=== PATIENT | female | born 1950 | race Caucasian/White ===

== ENCOUNTER 2018-02-23 01:13 | Inpatient (IN) | payer MEDICARE ==
[2018-02-23] MEDS: IV NORMAL SALINE 1000ML BAG 1,000 ML IV ×2 (02:19→16:47)
[2018-02-23 09:13] LABS: ADD MAN DIFF? NO
[2018-02-23 09:48] LABS: BASO % 1 % (0-3); EOS # 0.1 x10^3/uL (0.0-0.7); EOS % 2 % (0-3); HEMATOCRIT 41.2 % (36.0-47.0); HEMOGLOBIN 13.6 g/dL (12.0-15.5); LYMPH # 1.8 x10^3/uL (1.0-4.8); LYMPH % 34 % (24-48); MEAN CORPUSCULAR HEMOGLOBIN 30 pg (25-35); MEAN CORPUSCULAR HGB CONC 33 g/dL (31-37); MEAN CORPUSCULAR VOLUME 90 fL (79-100); MONO # 0.3 x10^3/uL (0.0-1.1); MONO % 6 % (0-9); NEUT # 2.9 x10^3uL (1.8-7.7); NEUT % 57 % (31-73); PLATELET COUNT 138 x10^3/uL (140-400); RED BLOOD COUNT 4.57 x10^6/uL (3.50-5.40); RED CELL DISTRIBUTION WIDTH 13.5 % (11.5-14.5); WHITE BLOOD COUNT 5.1 x10^3/uL (4.0-11.0)
[2018-02-23 09:50] LABS: ALBUMIN 3.1 g/dL (3.4-5.0); ALK PHOS 88 U/L (46-116); ALT (SGPT) 21 U/L (14-59); ANION GAP 7 (6-14); AST (SGOT) 16 U/L (15-37); BLOOD UREA NITROGEN 16 mg/dL (7-20); BUN/CREATININE RATIO 23 (6-20); CALCIUM 8.7 mg/dL (8.5-10.1); CARBON DIOXIDE 28 mmol/L (21-32); CHLORIDE 110 mmol/L (98-107); CREATININE 0.7 mg/dL (0.6-1.0); GLUCOSE 95 mg/dL (70-99); POTASSIUM 3.9 mmol/L (3.5-5.1); SODIUM 145 mmol/L (136-145); TOTAL BILIRUBIN 0.6 mg/dL (0.2-1.0); TOTAL PROTEIN 6.2 g/dL (6.4-8.2)
[2018-02-23] MEDS: PANTOPRAZOLE IV PUSH 40 MG VIAL. IVP (10:50)
[2018-02-23] MEDS: ACETAMINOPHEN 325 MG TABLET. PO ×2 (10:50→18:09)
[2018-02-23] MEDS: METOPROLOL TART IMMED RELEASE 25 MG TABLET. PO ×2 (18:08→21:53)
[2018-02-23] MEDS: PROPAFENONE 150 MG TABLET. PO ×2 (18:09→21:50)
[2018-02-23] MEDS: ALPRAZolam 0.5 MG TABLET PO (18:09)
[2018-02-24] MEDS: IV NORMAL SALINE 1000ML BAG 1,000 ML IV (04:14)
[2018-02-24] MEDS: PROPAFENONE 150 MG TABLET. PO (09:08)
[2018-02-24] MEDS: PANTOPRAZOLE 40 MG TABLET.DR. PO (09:09)
[2018-02-24] MEDS: METOPROLOL TART IMMED RELEASE 25 MG TABLET. PO (09:10)
[2018-02-24 10:52] LABS: HEMOGLOBIN 14.8 g/dL (12.0-15.5)
== END 2018-02-24 15:55 | disposition home or self-care (01) | DRG 379 ==
LOC: 6 SOUTH 01:13
DX: K92.2 Gastrointestinal hemorrhage, unspecified (principal); I48.2 Chronic atrial fibrillation; K92.1 Melena; I10 Essential (primary) hypertension; K21.9 Gastro-esophageal reflux disease without esophagitis; K27.9 Peptic ulcer, site unspecified, unspecified as acute or chronic, without hemorrhage or perforation; Z79.01 Long term (current) use of anticoagulants; Z80.1 Family history of malignant neoplasm of trachea, bronchus and lung; Z82.49 Family history of ischemic heart disease and other diseases of the circulatory system; Z87.11 Personal history of peptic ulcer disease; Z90.710 Acquired absence of both cervix and uterus
CPT/HCPCS: 36415; 80053; 85018; 85025; C9113; J7030

== ENCOUNTER 2019-01-08 03:17 | Inpatient (IN) | payer MEDICARE ==
[~2019-01-08] VITALS: Ht 162.6 cm; Wt 115.8 kg
[2019-01-08] VITALS (10 sets, daily range): BP systolic 87–140; BP diastolic 41–60
[~2019-01-08 03:17] MED LIST: ACET325T9 PO; APIX5TAB PO; CHOL100013 PO; METO25TA4 PO; NAPR220C4 PO; OMEP20TA8 PO; PROP150T2 PO
[2019-01-08] MEDS ORDERED: ONDANSETRON PF 4 MG/2 ML VIAL. ONE ×2 (03:23→09:17)
--- NOTE | 2019-01-08 03:46 | PHYS DOC ---
Past Medical History Past Medical History: A-Fib, Anxiety Past Surgical History: Hysterectomy Alcohol Use: Occasionally Drug Use: None Adult General HPI HPI Patient is a 68 year old female who presents with right hip pain post fall. Patient was walking to her car to go work at approximately 2:00 this morning when she slipped on ice landing on her right hip. There was no loss of consciousness. Patient has been unable to ambulate since the fall. Patient was brought in by EMS, given 100 �g of fentanyl as well as 4 mg of Zofran in route. Patient continues to have nausea and vomiting.[] Review of Systems Review of Systems Constitutional: Denies fever or chills [] Eyes: Denies change in visual acuity, redness, or eye pain [] HENT: Denies nasal congestion or sore throat [] Respiratory: Denies cough or shortness of breath [] Cardiovascular: No chest pain or palpitations[] GI: Denies abdominal pain, nausea, vomiting, bloody stools or diarrhea [] : Denies dysuria or hematuria [] Musculoskeletal: Denies back pain, see history of present illness[] Integument: Denies rash or skin lesions [] Neurologic: Denies headache, focal weakness or sensory changes [] Endocrine: Denies polyuria or polydipsia [] All other systems were reviewed and found to be within normal limits, except as documented in this note. Current Medications Current Medications Current Medications Medications (Trade) Dose Ordered Sig/[facility] Start Time Stop Time Status Last Admin Dose Admin Acetaminophen (Tylenol) 650 mg PRN Q4HRS PRN 01/08/19 04:15 01/09/19 04:14 Metoclopramide HCl (Reglan Vial) 10 mg 1X ONCE 01/08/19 04:15 01/08/19 04:16 DC 01/08/19 04:28 10 MG Morphine Sulfate (Morphine Sulfate) 4 mg PRN Q2HR PRN 01/08/19 04:15 01/09/19 04:14 Ondansetron HCl (Zofran) 4 mg PRN Q8HRS PRN 01/08/19 04:15 01/09/19 04:14 Allergies Allergies Allergies Coded Allergies Type Severity Reaction Last Updated Verified No Known Drug Allergies 01/08/19 No Physical Exam Physical Exam Constitutional: Well developed, well nourished, mild to moderate discomfort, non -toxic appearance. [] HENT: Normocephalic, atraumatic, bilateral external ears normal, oropharynx moist, no oral exudates, nose normal. [] Eyes: PERRLA, EOMI, conjunctiva normal, no discharge. [] Neck: Normal range of motion, no tenderness, supple, no stridor. [] Cardiovascular:Heart rate regular rhythm, no murmur [] Lungs & Thorax: Bilateral breath sounds clear to auscultation [] Abdomen: Bowel sounds normal, soft, no tenderness, no masses, no pulsatile masses. [] Skin: Warm, dry, no erythema, no rash. [] Back: No tenderness, no CVA tenderness. [] Extremities: Right hip: Tenderness diffusely around the right hip patient is distal neurovascularly intact. Other 3 extremities: No tenderness, no cyanosis, no clubbing, ROM intact, no edema. [] Neurologic: Alert and oriented X 3, normal motor function, normal sensory function, no focal deficits noted. [] Psychologic: Affect normal, judgement normal, mood normal. [] Current Patient Data Vital Signs Vital Signs Date Time Temp Pulse Resp B/P (MAP) Pulse Ox O2 Delivery O2 Flow Rate FiO2 01/08/19 04:29 22 98 Nasal Cannula 2.0 01/08/19 04:12 66 01/08/19 03:17 97.7 144/66 (92) 97.7 EKG EKG EKG shows a sinus rhythm at 63 bpm, normal axis, QTC 425 ms, no ST elevation, interpreted by me at 0430[] Radiology/Procedures Radiology/Procedures Right hip x-ray and pelvis shows a right hip fracture Chest x-ray is rotated but does not show an acute infiltrate[] Course & Med Decision Making Course & Med Decision Making Pertinent Labs and Imaging studies reviewed. (See chart for details) [] Dragon Disclaimer Dragon Disclaimer This electronic medical record was generated, in whole or in part, using a voice recognition dictation system. Departure Departure Impression: Primary Impression: Hip fracture, right Additional Impression: A-fib Disposition: ADMITTED INPATIENT Admitting Physician: Other Condition: IMPROVED Problem Qualifiers Primary Impression: Hip fracture, right Encounter type: initial encounter Fracture type: closed Qualified Codes: S72.001A - Fracture of unspecified part of neck of right femur, initial encounter for closed fracture Additional Impression: A-fib Atrial fibrillation type: unspecified Qualified Codes: I48.91 - Unspecified atrial fibrillation CICI MILLER DO Jan 08, 2019 03:46
[2019-01-08] MEDS ORDERED: ONDANSETRON PF 4 MG/2 ML VIAL. IV ONE (04:00)
[2019-01-08] MEDS ORDERED: ACETAMINOPHEN 325 MG TABLET. PO PRN (04:15)
[2019-01-08] MEDS ORDERED: ONDANSETRON PF 4 MG/2 ML VIAL. IV PRN ×3 (04:15→19:00)
[2019-01-08] MEDS ORDERED: METOCLOPRAMIDE HCL 10 MG/2 ML VIAL. IV ONE (04:15)
[2019-01-08] MEDS ORDERED: MORPHINE SULFATE 4 MG/ML VIAL. IV ONE (04:15)
--- NOTE | 2019-01-08 04:54 | RAD ---
Pelvis and 2 views right hip HISTORY: Pain status post fall AP view the pelvis obtained as well as AP and crosstable lateral views of the right hip There is enteroenteric fracture of the right hip with varus angulation and avulsion of the lesser trochanter. The femoral acetabular relationship is preserved. The remaining visualized osseous structures appear intact. IMPRESSION: Acute traumatic intertrochanteric fracture of the right hip. Electronically signed by: Santos Felix III, MD (01/08/2019 4:50 AM) [facility]
[2019-01-08 04:57] LABS: BASO % 0 % (0-3); EOS % 0 % (0-3); HEMATOCRIT 42.3 % (36.0-47.0); HEMOGLOBIN 13.9 g/dL (12.0-15.5); LYMPH # 1.1 x10^3/uL (1.0-4.8); LYMPH % 10 % (24-48); MEAN CORPUSCULAR HEMOGLOBIN 30 pg (25-35); MEAN CORPUSCULAR HGB CONC 33 g/dL (31-37); MEAN CORPUSCULAR VOLUME 90 fL (79-100); MONO # 0.2 x10^3/uL (0.0-1.1); MONO % 2 % (0-9); NEUT # 9.1 x10^3uL (1.8-7.7); NEUT % 87 % (31-73); PLATELET COUNT 189 x10^3/uL (140-400); RED BLOOD COUNT 4.68 x10^6/uL (3.50-5.40); RED CELL DISTRIBUTION WIDTH 13.2 % (11.5-14.5); WHITE BLOOD COUNT 10.5 x10^3/uL (4.0-11.0)
--- NOTE | 2019-01-08 04:57 | RAD ---
PORTABLE CHEST 1V Clinical History: Preoperative evaluation Technique: AP view of the chest was obtained at 01/08/2019 4:02 AM. Comparison: None. Findings: The cardiomediastinal silhouette is normal. The pulmonary vasculature is normal. The lungs and pleural margins are clear. Impression: No evidence of an acute cardiopulmonary process. Electronically signed by: Santos Felix III, MD (01/08/2019 4:52 AM) [facility]
[2019-01-08 05:06] LABS: CALCIUM 8.9 mg/dL (8.5-10.1); CREATININE 0.8 mg/dL (0.6-1.0); GFR 70.9; POTASSIUM 3.8 mmol/L (3.5-5.1)
[2019-01-08 05:12] LABS: ALBUMIN 3.2 g/dL (3.4-5.0); ALBUMIN/GLOBULIN RATIO 0.9 (1.0-1.7); PROTHROMBIN TIME PATIENT 13.8 SEC (11.7-14.0); TOTAL BILIRUBIN 0.3 mg/dL (0.2-1.0); TOTAL PROTEIN 6.8 g/dL (6.4-8.2)
[2019-01-08 05:29] LABS: BILIRUBIN,URINE NEGATIVE (NEG); CLARITY,URINE CLEAR; COLOR,URINE YELLOW; NITRITE,URINE NEGATIVE (NEG); PROTEIN,URINE NEGATIVE (NEG-TRACE); UROBILINOGEN,URINE 0.2 mg/dL (0.2 mg/dL)
[2019-01-08 05:33] LABS: AMORPHOUS SEDIMENT,UR PRESENT /HPF; BACTERIA,URINE 0 /HPF (0-FEW); HYALINE CASTS, URINE FEW /HPF; RBC,URINE 0 /HPF (0-2); SQUAMOUS EPITHELIAL CELL,UR OCC /LPF; WBC,URINE OCC /HPF (0-4)
[2019-01-08 06:56] LABS: % ATYL 1 % (0-0); % BANDS 5 % (0-9); % LYMPHS 9 % (24-48); % MONOS 1 % (0-10); PLT ESTIMATE ADEQUATE (ADEQUATE)
[2019-01-08 06:57] LABS: % SEGS 84 % (35-66); OVALOCYTES FEW
--- NOTE | 2019-01-08 07:00 | EKG ---
[facility] [address] [place] [address] Test Date: 2019-01-08 Test Time: 04:26:15 Pat Name: PRO GOMEZ Department: Room: [facility] Gender: F Rn Transition: : 1950 Requested By: CICI MILLER Order Number: [id number] Reading MD: Matheus Wayne MD Measurements Intervals [place] Rate: 63 P: 7 ID: [id number] QRS: 18 QRSD: 94 T: 26 QT: 412 QTc: 425 Interpretive Statements SINUS RHYTHM Electronically Signed On 01-11-2019 10:30:17 [employer] by Matheus Wayne MD
[2019-01-08] MEDS ORDERED: APIX5TAB PO (07:35)
[2019-01-08] MEDS ORDERED: PROP150T2 PO (07:35)
[2019-01-08] MEDS ORDERED: OMEP20CA10 PO (07:35)
[2019-01-08] MEDS ORDERED: METO25TA4 PO (07:35)
[2019-01-08] MEDS ORDERED: CHOL100013 PO (07:35)
[2019-01-08] MEDS: MORPHINE SULFATE 4 MG/ML VIAL. IV PRN ×3 (07:48→19:42)
[2019-01-08] MEDS ORDERED: PROPOFOL 20 ML IV ONE (09:17)
[2019-01-08] MEDS ORDERED: DEXAMETHASONE SOD PHOS 20 MG/5 ML VIAL. ONE (09:17)
[2019-01-08] MEDS ORDERED: FAMOTIDINE 20 MG/2 ML VIAL ONE (09:17)
[2019-01-08] MEDS ORDERED: LIDOCAINE 2% PF 5 ML VIAL. ONE (09:17)
[2019-01-08] MEDS ORDERED: fentaNYL PF VIAL 100 MCG/2 ML VIAL ONE ×2 (09:18→14:31)
[2019-01-08] MEDS ORDERED: MIDAZOLAM HCL/PF 2 MG/2 ML VIAL. ONE (09:18)
[2019-01-08] MEDS ORDERED: ROCURONIUM 50 MG/5 ML VIAL. ONE (09:18)
--- NOTE | 2019-01-08 09:51 | PDOC1 ---
History and Physical Date of Admission Date of Admission DATE: 01/08/19 TIME: 09:49 Identification/Chief Complaint Chief Complaint seen in ER THIS AM, Patient was walking to her car to go work at approximately 2:00 this morning when she slipped on ice landing on her right hip. There was no loss of consciousness NO HEAD INJURY. Patient has been unable to ambulate since the fall. 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 [place] Cardiovascular: AFIB Rheumatologic: No pertinent hx ENT: No pertinent hx Renal/: No pertinent hx Past Surgical History Past Surgical History: Other Family History Family History: High Cholestrol, Hypertension Family History: Parent Social History Smoke: No ALCOHOL: none Drugs: None Current Medications Current Medications Current Medications Ondansetron HCl (Zofran) 4 mg STK-MED ONCE .ROUTE ; Start 01/08/19 at 03:23; Stop 01/08/19 at 03:26; Status DC Ondansetron HCl (Zofran) 4 mg 1X ONCE IV Last administered on 01/08/19at 03:25 ; Start 01/08/19 at 04:00; Stop 01/08/19 at 04:01; Status DC Metoclopramide HCl (Reglan Vial) 10 mg 1X ONCE IV Last administered on at 04:28; Start 01/08/19 at 04:15; Stop 01/08/19 at 04:16; Status DC Morphine Sulfate (Morphine Sulfate) 4 mg 1X ONCE IV Last administered on at 04:29; Start 01/08/19 at 04:15; Stop 01/08/19 at 04:16; Status DC Ondansetron HCl (Zofran) 4 mg PRN Q8HRS PRN IV NAUSEA/VOMITING; Start 01/08/19 at 04:15; Stop 01/09/19 at 04:14 Morphine Sulfate (Morphine Sulfate) 4 mg PRN Q2HR PRN IV PAIN Last administered on 01/08/19at 07:48; Start 01/08/19 at 04:15; Stop 01/09/19 at 04:14 Acetaminophen (Tylenol) 650 mg PRN Q4HRS PRN PO FEVER; Start 01/08/19 at 04:15 ; Stop 01/09/19 at 04:14 Propofol 20 ml @ As Directed STK-MED ONCE IV ; Start 01/08/19 at 09:17; Stop 10/16 at 09:20; Status DC Dexamethasone Sodium Phosphate (Decadron) 20 mg STK-MED ONCE .ROUTE ; Start 10/16 at 09:17; Stop 01/08/19 at 09:20; Status DC Famotidine (Pepcid Vial) 20 mg STK-MED ONCE .ROUTE ; Start 01/08/19 at 09:17; Stop 01/08/19 at 09:20; Status DC Lidocaine HCl (Lidocaine Pf 2% Vial) 5 ml STK-MED ONCE .ROUTE ; Start 01/08/19 at 09:17; Stop 01/08/19 at 09:20; Status DC Ondansetron HCl (Zofran) 4 mg STK-MED ONCE .ROUTE ; Start 01/08/19 at 09:17; Stop 01/08/19 at 09:20; Status DC Rocuronium [place] (Zemuron) 50 mg STK-MED ONCE .ROUTE ; Start 01/08/19 at 09:18 ; Stop 01/08/19 at 09:21; Status DC Fentanyl Citrate (Fentanyl 2ml Vial) 100 mcg STK-MED ONCE .ROUTE ; Start at 09:18; Stop 01/08/19 at 09:21; Status DC Midazolam HCl (Versed) 2 mg STK-MED ONCE .ROUTE ; Start 01/08/19 at 09:18; Stop 01/08/19 at 09:21; Status DC Active Scripts Active Reported Vitamin D (Cholecalciferol (Vitamin D3)) 1,000 Unit Capsule 1 Cap PO DAILY PRN Omeprazole 20 Mg Capsule.dr 1 Cap PO DAILY PRN Eliquis (Apixaban) 5 Mg Tablet 5 Mg PO BID PRN Metoprolol Tartrate 25 Mg Tablet 1 Tab PO BID PRN Propafenone Hcl 150 Mg Tablet 150 Mg PO BID Allergies Allergies: Coded Allergies: No Known Drug Allergies (Unverified , 01/08/19) ROS Review of System Review of Systems Review of Systems Constitutional: Denies fever or chills [] Eyes: Denies change in visual acuity, redness, or eye pain [] HENT: Denies nasal congestion or sore throat [] Respiratory: Denies cough or shortness of breath [] Cardiovascular: No chest pain or palpitations[] no exertional chest pain GI: Denies abdominal pain, nausea, vomiting, bloody stools or diarrhea [] : Denies dysuria or hematuria [] Musculoskeletal: Denies back pain, see history of present illness[] Integument: Denies rash or skin lesions [] Neurologic: Denies headache, focal weakness or sensory changes [] Endocrine: Denies polyuria or polydipsia [] 14 pt systems were reviewed and found to be within normal limits, except as documented PSYCHOLOGICAL ROS: No: Anxiety, Behavioral Disorder, Concentration difficultie , Decreased libido, Depression, Disorientation, Hallucinations, Hostility, Irritablity, Memory difficulties, Mood Swings, Obsessive thoughts, Physical abuse, Sexual abuse, Sleep disturbances, Suicidal ideation, Other Eyes: No Blurry vision, No Decreased vision, No Double vision, No Dry eyes, No Excessive tearing, No Eye Pain, No Itchy Eyes, No Loss of vision, No Photophobia , No Scotomata, No Uses contacts, No Uses glasses, No Other ALLERGY AND IMMUNOLOGY: No: Hives, Insect Bite Sensitivity, Itchy/Watery Eyes, Nasal Congestion, Post Nasal Drip, Seasonal Allergies, Other Hematological and Lymphatic: No: Bleeding Problems, Blood Clots, Blood Transfusions, Brusing, Night Sweats, Pallor, Swollen Lymph Nodes, Other Respiratory: No: Cough, Hemoptysis, Orthopnea, Pleuritic Pain, Shortness of breath, SOB with excertion, Sputum Changes, Stridor, Tachypnea, Wheezing, Other Cardiovascular: No Chest Pain, No Palpitations, No Orthopnea, No Paroxysmal Noc. Dyspnea, No Edema, No Lt Headedness, No Other Gastrointestinal: No Nausea, No Vomiting, No Abdominal Pain, No Diarrhea, No Constipation, No Melena, No Hematochezia, No Other Neurological: Yes Gait Disturbance Physical Exam Physical Exam Physical Exam Physical Exam Constitutional: Well developed, well nourished, mild to moderate discomfort, non -toxic appearance. [] HENT: Normocephalic, atraumatic, bilateral external ears normal, oropharynx moist, no oral exudates, nose normal. [] Eyes: PERRLA, EOMI, conjunctiva normal, no discharge. [] Neck: Normal range of motion, no tenderness, supple, no stridor. [] Cardiovascular:Heart rate regular rhythm, no murmur [] Lungs & Thorax: Bilateral breath sounds clear to auscultation [] Abdomen: Bowel sounds normal, soft, no tenderness, no masses, no pulsatile masses. [] Skin: Warm, dry, no erythema, no rash. [] Back: No tenderness, no CVA tenderness. [] Extremities: Right hip: Tenderness diffusely around the right hip patient is distal neurovascularly intact. Other 3 extremities: No tenderness, no cyanosis, no clubbing, ROM intact, no edema. [] Neurologic: Alert and oriented X 3, normal motor function, normal sensory function, no focal deficits noted. [] Psychologic: Affect normal, judgement normal, mood normal. [] General: Alert, Oriented X3, Cooperative HEENT: Atraumatic Lungs: Clear to auscultation Heart: S1S2, RRR, no thrills Breasts: Not examined Abdomen: Normal bowel sounds, Soft Rectal Exam: not examined PELVIC: Examination not indicated Extremities: No clubbing, No cyanosis Skin: No breakdown Neuro: Normal speech, Sensation intact, Cranial nerves 3-12 NL Psych/Mental Status: Mental status NL, Mood NL Vitals Vitals Vital Signs Date Time Temp Pulse Resp B/P (MAP) Pulse Ox O2 Delivery O2 Flow Rate FiO2 01/08/19 08:54 Nasal Cannula 2.0 01/08/19 06:00 98.6 69 18 140/60 (86) 98 98.6 Labs Labs Laboratory Tests Test 01/08/19 04:36 01/08/19 05:17 White Blood Count 10.5 x10^3/uL (4.0-11.0) Red Blood Count 4.68 x10^6/uL (3.50-5.40) Hemoglobin 13.9 g/dL (12.0-15.5) Hematocrit 42.3 % (36.0-47.0) Mean Corpuscular Volume 90 fL (79-100) Mean Corpuscular Hemoglobin 30 pg (25-35) Mean Corpuscular Hemoglobin Concent 33 g/dL (31-37) Red Cell Distribution Width 13.2 % (11.5-14.5) Platelet Count 189 x10^3/uL (140-400) Neutrophils (%) (Auto) 87 % (31-73) Lymphocytes (%) (Auto) 10 % (24-48) Monocytes (%) (Auto) 2 % (0-9) Eosinophils (%) (Auto) 0 % (0-3) Basophils (%) (Auto) 0 % (0-3) Neutrophils # (Auto) 9.1 x10^3uL (1.8-7.7) Lymphocytes # (Auto) 1.1 x10^3/uL (1.0-4.8) Monocytes # (Auto) 0.2 x10^3/uL (0.0-1.1) Eosinophils # (Auto) 0.0 x10^3/uL (0.0-0.7) Basophils # (Auto) 0.0 x10^3/uL (0.0-0.2) Segmented Neutrophils % 84 % (35-66) Band Neutrophils % 5 % (0-9) Lymphocytes % 9 % (24-48) Atypical Lymphocytes % (Manual) 1 % (0-0) Monocytes % 1 % (0-10) Platelet Estimate Adequate (ADEQUATE) Ovalocytes Few Prothrombin Time 13.8 SEC (11.7-14.0) Prothromb Time International Ratio 1.1 (0.8-1.1) Sodium Level 145 mmol/L (136-145) Potassium Level 3.8 mmol/L (3.5-5.1) Chloride Level 107 mmol/L (98-107) Carbon Dioxide Level 25 mmol/L (21-32) Anion Gap 13 (6-14) Blood Urea Nitrogen 27 mg/dL (7-20) Creatinine 0.8 mg/dL (0.6-1.0) Estimated GFR (Cockcroft-Gault) 70.9 BUN/Creatinine Ratio 34 (6-20) Glucose Level 149 mg/dL (70-99) Calcium Level 8.9 mg/dL (8.5-10.1) Total Bilirubin 0.3 mg/dL (0.2-1.0) Aspartate Amino Transf (AST/SGOT) 17 U/L (15-37) Alanine Aminotransferase (ALT/SGPT) 22 U/L (14-59) Alkaline Phosphatase 100 U/L (46-116) Total Protein 6.8 g/dL (6.4-8.2) Albumin 3.2 g/dL (3.4-5.0) Albumin/Globulin Ratio 0.9 (1.0-1.7) Urine Collection Type Unknown Urine Color Yellow Urine Clarity Clear Urine pH 5.0 Urine Specific [place] 1.025 Urine Protein Negative mg/dL (NEG-TRACE) Urine Glucose (UA) Negative mg/dL (NEG) Urine Ketones (Stick) Negative mg/dL (NEG) Urine Blood Negative (NEG) Urine Nitrite Negative (NEG) Urine Bilirubin Negative (NEG) Urine Urobilinogen Dipstick 0.2 mg/dL (0.2 mg/dL) Urine Leukocyte Esterase Negative (NEG) Urine RBC 0 /HPF (0-2) Urine WBC Occ /HPF (0-4) Urine Squamous Epithelial Cells Occ /LPF Urine Amorphous Sediment Present /HPF Urine Bacteria 0 /HPF (0-FEW) Urine Hyaline Casts Few /HPF Urine Mucus Mod /LPF Laboratory Tests Test 01/08/19 04:36 01/08/19 05:17 White Blood Count 10.5 x10^3/uL (4.0-11.0) Red Blood Count 4.68 x10^6/uL (3.50-5.40) Hemoglobin 13.9 g/dL (12.0-15.5) Hematocrit 42.3 % (36.0-47.0) Mean Corpuscular Volume 90 fL (79-100) Mean Corpuscular Hemoglobin 30 pg (25-35) Mean Corpuscular Hemoglobin Concent 33 g/dL (31-37) Red Cell Distribution Width 13.2 % (11.5-14.5) Platelet Count 189 x10^3/uL (140-400) Neutrophils (%) (Auto) 87 % (31-73) Lymphocytes (%) (Auto) 10 % (24-48) Monocytes (%) (Auto) 2 % (0-9) Eosinophils (%) (Auto) 0 % (0-3) Basophils (%) (Auto) 0 % (0-3) Neutrophils # (Auto) 9.1 x10^3uL (1.8-7.7) Lymphocytes # (Auto) 1.1 x10^3/uL (1.0-4.8) Monocytes # (Auto) 0.2 x10^3/uL (0.0-1.1) Eosinophils # (Auto) 0.0 x10^3/uL (0.0-0.7) Basophils # (Auto) 0.0 x10^3/uL (0.0-0.2) Segmented Neutrophils % 84 % (35-66) Band Neutrophils % 5 % (0-9) Lymphocytes % 9 % (24-48) Atypical Lymphocytes % (Manual) 1 % (0-0) Monocytes % 1 % (0-10) Platelet Estimate Adequate (ADEQUATE) Ovalocytes Few Prothrombin Time 13.8 SEC (11.7-14.0) Prothromb Time International Ratio 1.1 (0.8-1.1) Sodium Level 145 mmol/L (136-145) Potassium Level 3.8 mmol/L (3.5-5.1) Chloride Level 107 mmol/L (98-107) Carbon Dioxide Level 25 mmol/L (21-32) Anion Gap 13 (6-14) Blood Urea Nitrogen 27 mg/dL (7-20) Creatinine 0.8 mg/dL (0.6-1.0) Estimated GFR (Cockcroft-Gault) 70.9 BUN/Creatinine Ratio 34 (6-20) Glucose Level 149 mg/dL (70-99) Calcium Level 8.9 mg/dL (8.5-10.1) Total Bilirubin 0.3 mg/dL (0.2-1.0) Aspartate Amino Transf (AST/SGOT) 17 U/L (15-37) Alanine Aminotransferase (ALT/SGPT) 22 U/L (14-59) Alkaline Phosphatase 100 U/L (46-116) Total Protein 6.8 g/dL (6.4-8.2) Albumin 3.2 g/dL (3.4-5.0) Albumin/Globulin Ratio 0.9 (1.0-1.7) Urine Collection Type Unknown Urine Color Yellow Urine Clarity Clear Urine pH 5.0 Urine Specific [place] 1.025 Urine Protein Negative mg/dL (NEG-TRACE) Urine Glucose (UA) Negative mg/dL (NEG) Urine Ketones (Stick) Negative mg/dL (NEG) Urine Blood Negative (NEG) Urine Nitrite Negative (NEG) Urine Bilirubin Negative (NEG) Urine Urobilinogen Dipstick 0.2 mg/dL (0.2 mg/dL) Urine Leukocyte Esterase Negative (NEG) Urine RBC 0 /HPF (0-2) Urine WBC Occ /HPF (0-4) Urine Squamous Epithelial Cells Occ /LPF Urine Amorphous Sediment Present /HPF Urine Bacteria 0 /HPF (0-FEW) Urine Hyaline Casts Few /HPF Urine Mucus Mod /LPF Images Images AP view the pelvis obtained as well as AP and crosstable lateral views of the right hip There is enteroenteric fracture of the right hip with varus angulation and avulsion of the lesser trochanter. The femoral acetabular relationship is preserved. The remaining visualized osseous structures appear intact. IMPRESSION: Acute traumatic intertrochanteric fracture of the right hip. VTE Prophylaxis Ordered VTE Prophylaxis Devices: Yes VTE Pharmacological Prophylaxi: Contraindicated Assessment/Plan Assessment/Plan Impression: Hip fracture, right ,traumatic intertrochanteric fracture of the right hip. mechanical fall on ice A-fib on eliquis morbid obesity GERD HTN plan ADMITTED ortho consult appears at low risk for intraoperative complications cardiology consult scd's gi prophylaxis tele STACY BRASWELL MD Jan 08, 2019 09:51
[2019-01-08] MEDS: CHOLECALCIFEROL (VITAMIN D3) 1,000 UNIT TABLET PO SCH (11:00)
[2019-01-08] MEDS: PROPAFENONE 150 MG TABLET. PO SCH ×2 (11:00→21:00)
[2019-01-08] MEDS ORDERED: METOPROLOL TART IMMED RELEASE 25 MG TABLET. PO PRN (11:15)
[2019-01-08] MEDS ORDERED: IV RINGERS,LACTATED 1000ML 1,000 ML IV SCH (11:46)
[2019-01-08] MEDS ORDERED: fentaNYL PF VIAL 100 MCG/2 ML VIAL IV PRN ×2 (12:00)
[2019-01-08] MEDS ORDERED: HYDROmorphone 2 MG/ML VIAL IV PRN (12:00)
[2019-01-08] MEDS ORDERED: LIDOCAINE 1% PF 2 ML VIAL. ID PRN (12:00)
[2019-01-08] MEDS ORDERED: MORPHINE SULFATE 4 MG/ML VIAL. IV PRN (12:00)
[2019-01-08] MEDS ORDERED: KETAMINE HCL IN NACL, ISO-OSM 50 MG/5 ML SYRINGE ONE (12:53)
[2019-01-08] MEDS ORDERED: GLYCOPYRROLATE 1 MG/5 ML VIAL. ONE (13:23)
[2019-01-08] MEDS ORDERED: NEOSTIGMINE 10 MG/10 ML VIAL. ONE (13:23)
--- NOTE | 2019-01-08 13:55 | PDOC2 ---
JT BRYANT PROCESS STEWARD 01/08/19 1355: CARDIAC CONSULT DATE OF CONSULT Date of Consult DATE: 01/08/19 TIME: 13:47 REASON FOR CONSULT Reason for Consult: AFIB Hip fracture REFERRING PHYSICIAN Referring Physician: Dr. Kaur SOURCE Source: Chart review HISTORY OF PRESENT ILLNESS HISTORY OF PRESENT ILLNESS This is a 68 yo female who presented secondary to mechanical fall. Patient presently off unit for surgical hip repair. Per chair review, was walking to her car; slipped on the ice and fell. No LOC. Imaging notable for acute traumatic intertrochanteric fracture of the right hip. Patient has a history of PAFIB, which is what prompted this consult. Patient is not on telemetry. EKG shows NSR. PAST MEDICAL HISTORY Cardiovascular: AFIB, HTN Pulmonary: No pertinent hx CENTRAL NERVOUS SYSTEM: Other (no pertinent history ) GI: Diverticulosis (diverticulitis ) Heme/Onc: No pertinent hx Hepatobiliary: No pertinent hx Psych: Anxiety Musculoskeletal: Other (no pertinent hx) Rheumatologic: No pertinent hx Infectious disease: No pertinent hx ENT: No pertinent hx Renal/: No pertinent hx Endocrine: No pertinent hx Dermatology: No pertinent hx PAST SURGICAL HISTORY Past Surgical History: Appendectomy, Hysterectomy FAMILY HISTORY Family History: Hypertension SOCIAL HISTORY Smoke: No ALCOHOL: none Drugs: None CURRENT MEDICATIONS CURRENT MEDICATIONS Current Medications Medications (Trade) Dose Ordered Sig/Addi Route PRN Reason Start Time Stop Time Status Last Admin Dose Admin Ondansetron HCl (Zofran) 4 mg 1X ONCE IV 01/08/19 04:00 01/08/19 04:01 DC 01/08/19 03:25 Metoclopramide HCl (Reglan Vial) 10 mg 1X ONCE IV 01/08/19 04:15 01/08/19 04:16 DC 01/08/19 04:28 Morphine Sulfate (Morphine Sulfate) 4 mg 1X ONCE IV 01/08/19 04:15 01/08/19 04:16 DC 01/08/19 04:29 Morphine Sulfate (Morphine Sulfate) 4 mg PRN Q2HR PRN IV PAIN 01/08/19 04:15 01/09/19 04:14 01/08/19 10:53 Ringer's Solution 1,000 ml @ 30 mls/hr Q24H IV 01/08/19 11:46 01/08/19 23:45 01/08/19 11:53 Cefazolin Sodium/ Dextrose 50 ml @ 100 mls/hr 1X ONCE IV 01/08/19 12:15 01/08/19 12:44 DC 01/08/19 12:18 ALLERGIES ALLERGIES: Coded Allergies: No Known Drug Allergies (Unverified , 01/08/19) ROS Review of System 14 point ROS conducted with pertinent positives noted above in HPI. PHYSICAL EXAM PHYSICAL EXAM patient off unit in surgery VITALS VITALS Vital Signs Date Time Temp Pulse Resp B/P (MAP) Pulse Ox O2 Delivery O2 Flow Rate FiO2 01/08/19 12:00 98.6 76 20 130/69 94 Nasal Cannula 2 98.6 LABS Lab: Laboratory Tests Test 01/08/19 04:36 01/08/19 05:17 White Blood Count 10.5 x10^3/uL (4.0-11.0) Red Blood Count 4.68 x10^6/uL (3.50-5.40) Hemoglobin 13.9 g/dL (12.0-15.5) Hematocrit 42.3 % (36.0-47.0) Mean Corpuscular Volume 90 fL (79-100) Mean Corpuscular Hemoglobin 30 pg (25-35) Mean Corpuscular Hemoglobin Concent 33 g/dL (31-37) Red Cell Distribution Width 13.2 % (11.5-14.5) Platelet Count 189 x10^3/uL (140-400) Neutrophils (%) (Auto) 87 % (31-73) Lymphocytes (%) (Auto) 10 % (24-48) Monocytes (%) (Auto) 2 % (0-9) Eosinophils (%) (Auto) 0 % (0-3) Basophils (%) (Auto) 0 % (0-3) Neutrophils # (Auto) 9.1 x10^3uL (1.8-7.7) Lymphocytes # (Auto) 1.1 x10^3/uL (1.0-4.8) Monocytes # (Auto) 0.2 x10^3/uL (0.0-1.1) Eosinophils # (Auto) 0.0 x10^3/uL (0.0-0.7) Basophils # (Auto) 0.0 x10^3/uL (0.0-0.2) Segmented Neutrophils % 84 % (35-66) Band Neutrophils % 5 % (0-9) Lymphocytes % 9 % (24-48) Atypical Lymphocytes % (Manual) 1 % (0-0) Monocytes % 1 % (0-10) Platelet Estimate Adequate (ADEQUATE) Ovalocytes Few Prothrombin Time 13.8 SEC (11.7-14.0) Prothromb Time International Ratio 1.1 (0.8-1.1) Sodium Level 145 mmol/L (136-145) Potassium Level 3.8 mmol/L (3.5-5.1) Chloride Level 107 mmol/L (98-107) Carbon Dioxide Level 25 mmol/L (21-32) Anion Gap 13 (6-14) Blood Urea Nitrogen 27 mg/dL (7-20) Creatinine 0.8 mg/dL (0.6-1.0) Estimated GFR (Cockcroft-Gault) 70.9 BUN/Creatinine Ratio 34 (6-20) Glucose Level 149 mg/dL (70-99) Calcium Level 8.9 mg/dL (8.5-10.1) Total Bilirubin 0.3 mg/dL (0.2-1.0) Aspartate Amino Transf (AST/SGOT) 17 U/L (15-37) Alanine Aminotransferase (ALT/SGPT) 22 U/L (14-59) Alkaline Phosphatase 100 U/L (46-116) Total Protein 6.8 g/dL (6.4-8.2) Albumin 3.2 g/dL (3.4-5.0) Albumin/Globulin Ratio 0.9 (1.0-1.7) Urine Collection Type Unknown Urine Color Yellow Urine Clarity Clear Urine pH 5.0 Urine Specific [place] 1.025 Urine Protein Negative mg/dL (NEG-TRACE) Urine Glucose (UA) Negative mg/dL (NEG) Urine Ketones (Stick) Negative mg/dL (NEG) Urine Blood Negative (NEG) Urine Nitrite Negative (NEG) Urine Bilirubin Negative (NEG) Urine Urobilinogen Dipstick 0.2 mg/dL (0.2 mg/dL) Urine Leukocyte Esterase Negative (NEG) Urine RBC 0 /HPF (0-2) Urine WBC Occ /HPF (0-4) Urine Squamous Epithelial Cells Occ /LPF Urine Amorphous Sediment Present /HPF Urine Bacteria 0 /HPF (0-FEW) Urine Hyaline Casts Few /HPF Urine Mucus Mod /LPF ASSESSMENT/PLAN ASSESSMENT/PLAN 1. Mechanical fall, traumatic. Xray notable for right hip fracture. Presently in surgery for repair 2. PAFIB; rate controlled per vital sign review. On Eliquis for stroke prophylaxis at home 3. Hypertension; controlled Recommendations Supportive care Place on tele Resume Eliquis when okay with ortho. Will follow up tomorrow. GENA KELLY MD 01/09/19 0940: CARDIAC CONSULT ASSESSMENT/PLAN ASSESSMENT/PLAN Patient seen and examined 01/08/19. Agree with MECHANICAL PRODUCT DESIGN ENGINEER's assessment and plan. Patient has right hip fracture post mechanical fall without any harjeet syncope She has history of paroxysmal atrial fibrillation but is presently in sinus rhythm Continue postop care per orthopedics team and resume eliquis when okay from surgical standpoint Check 2-D echo to assess LV systolic function Thank you for your consultation JT BRYANT APRN Jan 08, 2019 13:55 GENA KELLY MD Jan 09, 2019 09:40
[2019-01-08] MEDS ORDERED: PROCHLORPERAZINE 10 MG/2 ML VIAL. ONE (14:31)
[2019-01-08] MEDS: PROCHLORPERAZINE 10 MG/2 ML VIAL. IV PRN ×2 (14:36→15:11)
[2019-01-08] MEDS: PANTOPRAZOLE 40 MG TABLET.DR. PO SCH (17:21)
--- NOTE | 2019-01-08 18:59 | PDOC4 ---
Operative Note Operative Note Date of surgery: 01/08/2019 Preoperative diagnosis: Displaced right intertrochanteric hip fracture Postoperative diagnosis: Same Operative procedure: Operative reduction internal fixation right intertrochanteric hip fracture with InterTAN intramedullary nail Surgeon: Justin Anesthesia: Gen. Estimated blood loss: 250 mL Complications: None Operative indications: Ct is a 68-year-old female that fell on ice had immediate onset of pain and deformity and inability to bear weight on the right hip. X-rays showed an anterior trochanteric hip fracture that is displaced. I had gone over with her and her family the x-rays the possibility of nonoperative treatment with traction which would entail a long time period of immobilization and immobilization related complications. We talked about the possibility of surgical fixation and the ability for her to get up and around with partial weightbearing yet maintain good alignment. We talked about risks of possible nonhealing infection nerve or blood vessel damage medical or other anesthetic complications among others all her questions were answered she agrees to proceed with surgical evaluation and treatment. Operative text: Patient was identified procedure verified patient placed in the supine position on the Jackson fracture table. After adequate amounts of general anesthesia were administered she was positioned all bony prominences were well- padded and the right hip was prepped and draped in standard sterile fashion after being placed in traction and reduced under fluoroscopic guidance. After timeout was performed patient procedure identified and verified incision was made proximal to the greater trochanteric entry point and the starting awl was used to place a long guidewire down the intramedullary portion of the bone. Starting point reamer was then advanced over the guidewire under fluoroscopic guidance and reaming carried out up to a size 14. A size 13 mm short 125� drop InterTAN nail was inserted a guidewire was drilled up the center of the femoral neck and a 100 mm lag screw was placed achieving about 10 mm of compression with the compression screw excellent anatomic fixation and stable fixation of the construct was noted. Distal nail was placed with a antirotation screw in the static position and hardware placement and fracture reduction were evaluated under multiple fluoroscopic views. Thorough irrigation carried out normal saline solution closure of fascia and subcutaneous was accomplished with buried Vicryl suture skin closure with ravi sterile dressings were applied patient was returned recovery room in stable condition having tolerated procedure well PUMA SNOW MD Jan 08, 2019 18:59
[2019-01-08] MEDS ORDERED: DEXTROSE 50% 25 GM / 50ML DISP.SYRIN. IV PRN (19:00)
[2019-01-08] MEDS ORDERED: POLYETHYLENE GLYCOL 3350 17 GM PACKET. PO PRN (19:00)
[2019-01-08] MEDS: ALPRAZolam 0.5 MG TABLET PO PRN (19:36)
[2019-01-09] VITALS (7 sets, daily range): BP systolic 93–111; BP diastolic 58–74
--- NOTE | 2019-01-09 03:19 | CONS ---
DATE OF CONSULTATION: 01/08/2019 REQUESTING PHYSICIAN: Dr. Sewell. REASON FOR CONSULTATION: Right hip fracture. HISTORY OF PRESENT ILLNESS: The patient is a 68-year-old female who was walking to her car and slipped on the ice landed on her right hip. She had the sudden onset of pain, deformity and inability to bear weight on the right leg. She denies any head injury or loss of consciousness and was brought in by EMS to the Emergency Department. PAST MEDICAL HISTORY: Atrial fibrillation and anxiety. PAST SURGICAL HISTORY: Hysterectomy. ALLERGIES: She has no known drug allergies. MEDICATIONS: List was reviewed. FAMILY HISTORY: She denies any significant family history. SOCIAL HISTORY: Otherwise independently ambulatory and was going to work when this happened. She denies tobacco or drug use. Occasional alcohol consumption. REVIEW OF SYSTEMS: She denies any head injury, headache, focal weakness, numbness, tingling, other joint pain, change in bowel or bladder function, chest pain, shortness of breath, recent fever or chills, nausea, vomiting or other constitutional symptoms. PHYSICAL EXAMINATION: GENERAL: A pleasant, cooperative 68-year-old female, alert and oriented, mild distress with any movement, comfortable lying in bed. HEENT: Atraumatic and normocephalic. HEART: Regular rate and rhythm. MUSCULOSKELETAL: On examination of the upper extremities, she has full elbow, shoulder and wrist motion bilaterally with no joint tenderness or weakness. No neck or back pain on palpation. Good range of motion of the cervical spine. Obvious shortening and rotation of the right lower extremity with pain with any movement of the hip, normal alignment and stability of bilateral knees and ankles, normal examination of the contralateral left hip with overall intact motor function, distal pulses, sensation, reflexes and skin in both upper and lower extremities throughout. IMAGING: X-rays show a displaced intertrochanteric right hip fracture. IMPRESSION: Displaced intertrochanteric right hip fracture. TREATMENT PLAN: I went over with her and her family the significance of the injury. I went over x-rays with the family, brittni a picture for the patient and explained that while she can be treated nonoperatively for an extended period of time and traction if the fracture aligns properly she would be subjected to an extended period of immobility and immobility related problems. We talked about the possibility of operative evaluation and treatment, stabilization of the fracture, to get her up and around avoiding some of the immobility related issues and allowing some partial weightbearing as well as gentle transfers and other activities, possibility of risks of the operation including infection, nerve or blood vessel damage, medical or other anesthetic complications among others. All her questions were answered. She agrees to proceed with surgical evaluation and treatment following medical evaluation and clearance. We will keep her on her Eliquis for blood thinners given her history of atrial fibrillation and mobilize as soon as possible after surgery. PUMA SNOW MD DR: ARVIN/dennis JOB#: [id number] / [id number]
[2019-01-09] MEDS: MORPHINE SULFATE 4 MG/ML VIAL. IV PRN (04:07)
[2019-01-09] MEDS ORDERED: MAGNESIUM HYDROXIDE 2,400 MG/30 ML ORAL.SUSP. PO PRN (06:00)
[2019-01-09] MEDS: PROPAFENONE 150 MG TABLET. PO SCH ×2 (08:01→08:32)
[2019-01-09] MEDS: SENNOSIDES/DOCUSATE 8.6/50MG TABLET. PO SCH (08:33)
[2019-01-09] MEDS: PANTOPRAZOLE 40 MG TABLET.DR. PO SCH (08:33)
[2019-01-09] MEDS: CHOLECALCIFEROL (VITAMIN D3) 1,000 UNIT TABLET PO SCH (08:33)
[2019-01-09] MEDS ORDERED: DIGOXIN IV 500 MCG/2 ML AMPUL. IV ONE ×2 (09:00→15:00)
[2019-01-09 09:36] LABS: BASO % 0 % (0-3); EOS % 0 % (0-3); HEMATOCRIT 32.7 % (36.0-47.0); HEMOGLOBIN 10.7 g/dL (12.0-15.5); LYMPH # 1.6 x10^3/uL (1.0-4.8); LYMPH % 15 % (24-48); MEAN CORPUSCULAR HEMOGLOBIN 30 pg (25-35); MEAN CORPUSCULAR HGB CONC 33 g/dL (31-37); MEAN CORPUSCULAR VOLUME 91 fL (79-100); MONO # 0.7 x10^3/uL (0.0-1.1); MONO % 6 % (0-9); NEUT # 8.8 x10^3uL (1.8-7.7); NEUT % 79 % (31-73); PLATELET COUNT 177 x10^3/uL (140-400); RED BLOOD COUNT 3.61 x10^6/uL (3.50-5.40); RED CELL DISTRIBUTION WIDTH 13.3 % (11.5-14.5); WHITE BLOOD COUNT 11.1 x10^3/uL (4.0-11.0)
[2019-01-09 09:48] LABS: CALCIUM 8.6 mg/dL (8.5-10.1); CREATININE 0.8 mg/dL (0.6-1.0); GFR 70.9
--- NOTE | 2019-01-09 10:20 | PDOC ---
PROGRESS NOTES Chief Complaint Chief Complaint Operative Note Operative Note Date of surgery: 01/08/2019 Preoperative diagnosis: Displaced right intertrochanteric hip fracture Postoperative diagnosis: Same Operative procedure: Operative reduction internal fixation right intertrochanteric hip fracture with InterTAN intramedullary nail Surgeon: Justin Anesthesia: Gen. Estimated blood loss: 250 mL Complications: None History of Present Illness History of Present Illness There is enteroenteric fracture of the right hip with varus angulation and avulsion of the lesser trochanter. The femoral acetabular relationship is preserved. The remaining visualized osseous structures appear intact. IMPRESSION: Acute traumatic intertrochanteric fracture of the right hip. VTE Prophylaxis Ordered VTE Prophylaxis Devices: Yes VTE Pharmacological Prophylaxi: Contraindicated Assessment/Plan Assessment/Plan Impression: Hip fracture, right ,traumatic intertrochanteric fracture of the right hip. POD # 1 mechanical fall on ice A-fib on eliquis morbid obesity GERD HTN plan ADMITTED ortho consult appears at low risk for intraoperative complications cardiology consult scd's gi prophylaxis tele Vitals Vitals Vital Signs Date Time Temp Pulse Resp B/P (MAP) Pulse Ox O2 Delivery O2 Flow Rate FiO2 01/09/19 09:14 140 99/60 01/09/19 08:27 Nasal Cannula 2.0 01/09/19 07:15 98.1 18 94 98.1 Physical Exam General: Alert, Oriented X3, Cooperative, mild distress Heart: Regular rate, Normal S1, Normal S2 Lungs: Clear Abdomen: Normal bowel sounds, Soft Extremities: No clubbing, No cyanosis Skin: No breakdown Labs LABS Laboratory Tests Test 01/08/19 16:47 01/08/19 20:08 01/09/19 08:50 Glucose (Fingerstick) 151 mg/dL (70-99) 151 mg/dL (70-99) White Blood Count 11.1 x10^3/uL (4.0-11.0) Red Blood Count 3.61 x10^6/uL (3.50-5.40) Hemoglobin 10.7 g/dL (12.0-15.5) Hematocrit 32.7 % (36.0-47.0) Mean Corpuscular Volume 91 fL (79-100) Mean Corpuscular Hemoglobin 30 pg (25-35) Mean Corpuscular Hemoglobin Concent 33 g/dL (31-37) Red Cell Distribution Width 13.3 % (11.5-14.5) Platelet Count 177 x10^3/uL (140-400) Neutrophils (%) (Auto) 79 % (31-73) Lymphocytes (%) (Auto) 15 % (24-48) Monocytes (%) (Auto) 6 % (0-9) Eosinophils (%) (Auto) 0 % (0-3) Basophils (%) (Auto) 0 % (0-3) Neutrophils # (Auto) 8.8 x10^3uL (1.8-7.7) Lymphocytes # (Auto) 1.6 x10^3/uL (1.0-4.8) Monocytes # (Auto) 0.7 x10^3/uL (0.0-1.1) Eosinophils # (Auto) 0.0 x10^3/uL (0.0-0.7) Basophils # (Auto) 0.0 x10^3/uL (0.0-0.2) Sodium Level 141 mmol/L (136-145) Potassium Level 4.0 mmol/L (3.5-5.1) Chloride Level 104 mmol/L (98-107) Carbon Dioxide Level 27 mmol/L (21-32) Anion Gap 10 (6-14) Blood Urea Nitrogen 21 mg/dL (7-20) Creatinine 0.8 mg/dL (0.6-1.0) Estimated GFR (Cockcroft-Gault) 70.9 Glucose Level 122 mg/dL (70-99) Calcium Level 8.6 mg/dL (8.5-10.1) Comment Review of Relevant I have reviewed the following items marly (where applicable) has been applied. Labs Laboratory Tests Test 01/08/19 04:36 01/08/19 05:17 01/08/19 16:47 01/08/19 20:08 White Blood Count 10.5 x10^3/uL (4.0-11.0) Red Blood Count 4.68 x10^6/uL (3.50-5.40) Hemoglobin 13.9 g/dL (12.0-15.5) Hematocrit 42.3 % (36.0-47.0) Mean Corpuscular Volume 90 fL (79-100) Mean Corpuscular Hemoglobin 30 pg (25-35) Mean Corpuscular Hemoglobin Concent 33 g/dL (31-37) Red Cell Distribution Width 13.2 % (11.5-14.5) Platelet Count 189 x10^3/uL (140-400) Neutrophils (%) (Auto) 87 % (31-73) Lymphocytes (%) (Auto) 10 % (24-48) Monocytes (%) (Auto) 2 % (0-9) Eosinophils (%) (Auto) 0 % (0-3) Basophils (%) (Auto) 0 % (0-3) Neutrophils # (Auto) 9.1 x10^3uL (1.8-7.7) Lymphocytes # (Auto) 1.1 x10^3/uL (1.0-4.8) Monocytes # (Auto) 0.2 x10^3/uL (0.0-1.1) Eosinophils # (Auto) 0.0 x10^3/uL (0.0-0.7) Basophils # (Auto) 0.0 x10^3/uL (0.0-0.2) Segmented Neutrophils % 84 % (35-66) Band Neutrophils % 5 % (0-9) Lymphocytes % 9 % (24-48) Atypical Lymphocytes % (Manual) 1 % (0-0) Monocytes % 1 % (0-10) Platelet Estimate Adequate (ADEQUATE) Ovalocytes Few Prothrombin Time 13.8 SEC (11.7-14.0) Prothromb Time International Ratio 1.1 (0.8-1.1) Sodium Level 145 mmol/L (136-145) Potassium Level 3.8 mmol/L (3.5-5.1) Chloride Level 107 mmol/L (98-107) Carbon Dioxide Level 25 mmol/L (21-32) Anion Gap 13 (6-14) Blood Urea Nitrogen 27 mg/dL (7-20) Creatinine 0.8 mg/dL (0.6-1.0) Estimated GFR (Cockcroft-Gault) 70.9 BUN/Creatinine Ratio 34 (6-20) Glucose Level 149 mg/dL (70-99) Calcium Level 8.9 mg/dL (8.5-10.1) Total Bilirubin 0.3 mg/dL (0.2-1.0) Aspartate Amino Transf (AST/SGOT) 17 U/L (15-37) Alanine Aminotransferase (ALT/SGPT) 22 U/L (14-59) Alkaline Phosphatase 100 U/L (46-116) Total Protein 6.8 g/dL (6.4-8.2) Albumin 3.2 g/dL (3.4-5.0) Albumin/Globulin Ratio 0.9 (1.0-1.7) Urine Collection Type Unknown Urine Color Yellow Urine Clarity Clear Urine pH 5.0 Urine Specific [place] 1.025 Urine Protein Negative mg/dL (NEG-TRACE) Urine Glucose (UA) Negative mg/dL (NEG) Urine Ketones (Stick) Negative mg/dL (NEG) Urine Blood Negative (NEG) Urine Nitrite Negative (NEG) Urine Bilirubin Negative (NEG) Urine Urobilinogen Dipstick 0.2 mg/dL (0.2 mg/dL) Urine Leukocyte Esterase Negative (NEG) Urine RBC 0 /HPF (0-2) Urine WBC Occ /HPF (0-4) Urine Squamous Epithelial Cells Occ /LPF Urine Amorphous Sediment Present /HPF Urine Bacteria 0 /HPF (0-FEW) Urine Hyaline Casts Few /HPF Urine Mucus Mod /LPF Glucose (Fingerstick) 151 mg/dL (70-99) 151 mg/dL (70-99) Test 01/09/19 08:50 White Blood Count 11.1 x10^3/uL (4.0-11.0) Red Blood Count 3.61 x10^6/uL (3.50-5.40) Hemoglobin 10.7 g/dL (12.0-15.5) Hematocrit 32.7 % (36.0-47.0) Mean Corpuscular Volume 91 fL (79-100) Mean Corpuscular Hemoglobin 30 pg (25-35) Mean Corpuscular Hemoglobin Concent 33 g/dL (31-37) Red Cell Distribution Width 13.3 % (11.5-14.5) Platelet Count 177 x10^3/uL (140-400) Neutrophils (%) (Auto) 79 % (31-73) Lymphocytes (%) (Auto) 15 % (24-48) Monocytes (%) (Auto) 6 % (0-9) Eosinophils (%) (Auto) 0 % (0-3) Basophils (%) (Auto) 0 % (0-3) Neutrophils # (Auto) 8.8 x10^3uL (1.8-7.7) Lymphocytes # (Auto) 1.6 x10^3/uL (1.0-4.8) Monocytes # (Auto) 0.7 x10^3/uL (0.0-1.1) Eosinophils # (Auto) 0.0 x10^3/uL (0.0-0.7) Basophils # (Auto) 0.0 x10^3/uL (0.0-0.2) Sodium Level 141 mmol/L (136-145) Potassium Level 4.0 mmol/L (3.5-5.1) Chloride Level 104 mmol/L (98-107) Carbon Dioxide Level 27 mmol/L (21-32) Anion Gap 10 (6-14) Blood Urea Nitrogen 21 mg/dL (7-20) Creatinine 0.8 mg/dL (0.6-1.0) Estimated GFR (Cockcroft-Gault) 70.9 Glucose Level 122 mg/dL (70-99) Calcium Level 8.6 mg/dL (8.5-10.1) Laboratory Tests Test 01/08/19 16:47 01/08/19 20:08 01/09/19 08:50 Glucose (Fingerstick) 151 mg/dL (70-99) 151 mg/dL (70-99) White Blood Count 11.1 x10^3/uL (4.0-11.0) Red Blood Count 3.61 x10^6/uL (3.50-5.40) Hemoglobin 10.7 g/dL (12.0-15.5) Hematocrit 32.7 % (36.0-47.0) Mean Corpuscular Volume 91 fL (79-100) Mean Corpuscular Hemoglobin 30 pg (25-35) Mean Corpuscular Hemoglobin Concent 33 g/dL (31-37) Red Cell Distribution Width 13.3 % (11.5-14.5) Platelet Count 177 x10^3/uL (140-400) Neutrophils (%) (Auto) 79 % (31-73) Lymphocytes (%) (Auto) 15 % (24-48) Monocytes (%) (Auto) 6 % (0-9) Eosinophils (%) (Auto) 0 % (0-3) Basophils (%) (Auto) 0 % (0-3) Neutrophils # (Auto) 8.8 x10^3uL (1.8-7.7) Lymphocytes # (Auto) 1.6 x10^3/uL (1.0-4.8) Monocytes # (Auto) 0.7 x10^3/uL (0.0-1.1) Eosinophils # (Auto) 0.0 x10^3/uL (0.0-0.7) Basophils # (Auto) 0.0 x10^3/uL (0.0-0.2) Sodium Level 141 mmol/L (136-145) Potassium Level 4.0 mmol/L (3.5-5.1) Chloride Level 104 mmol/L (98-107) Carbon Dioxide Level 27 mmol/L (21-32) Anion Gap 10 (6-14) Blood Urea Nitrogen 21 mg/dL (7-20) Creatinine 0.8 mg/dL (0.6-1.0) Estimated GFR (Cockcroft-Gault) 70.9 Glucose Level 122 mg/dL (70-99) Calcium Level 8.6 mg/dL (8.5-10.1) Medications Current Medications Ondansetron HCl (Zofran) 4 mg STK-MED ONCE .ROUTE ; Start 01/08/19 at 03:23; Stop 01/08/19 at 03:26; Status DC Ondansetron HCl (Zofran) 4 mg 1X ONCE IV Last administered on 01/08/19at 03:25 ; Start 01/08/19 at 04:00; Stop 01/08/19 at 04:01; Status DC Metoclopramide HCl (Reglan Vial) 10 mg 1X ONCE IV Last administered on at 04:28; Start 01/08/19 at 04:15; Stop 01/08/19 at 04:16; Status DC Morphine Sulfate (Morphine Sulfate) 4 mg 1X ONCE IV Last administered on at 04:29; Start 01/08/19 at 04:15; Stop 01/08/19 at 04:16; Status DC Ondansetron HCl (Zofran) 4 mg PRN Q8HRS PRN IV NAUSEA/VOMITING; Start 01/08/19 at 04:15; Stop 01/09/19 at 04:14; Status DC Morphine Sulfate (Morphine Sulfate) 4 mg PRN Q2HR PRN IV PAIN Last administered on 01/09/19at 04:07; Start 01/08/19 at 04:15; Stop 01/09/19 at 04:14 ; Status DC Acetaminophen (Tylenol) 650 mg PRN Q4HRS PRN PO FEVER; Start 01/08/19 at 04:15 ; Stop 01/09/19 at 04:14; Status DC Propofol 20 ml @ As Directed STK-MED ONCE IV ; Start 01/08/19 at 09:17; Stop 10/16 at 09:20; Status DC Dexamethasone Sodium Phosphate (Decadron) 20 mg STK-MED ONCE .ROUTE ; Start 10/16 at 09:17; Stop 01/08/19 at 09:20; Status DC Famotidine (Pepcid Vial) 20 mg STK-MED ONCE .ROUTE ; Start 01/08/19 at 09:17; Stop 01/08/19 at 09:20; Status DC Lidocaine HCl (Lidocaine Pf 2% Vial) 5 ml STK-MED ONCE .ROUTE ; Start 01/08/19 at 09:17; Stop 01/08/19 at 09:20; Status DC Ondansetron HCl (Zofran) 4 mg STK-MED ONCE .ROUTE ; Start 01/08/19 at 09:17; Stop 01/08/19 at 09:20; Status DC Rocuronium [place] (Zemuron) 50 mg STK-MED ONCE .ROUTE ; Start 01/08/19 at 09:18 ; Stop 01/08/19 at 09:21; Status DC Fentanyl Citrate (Fentanyl 2ml Vial) 100 mcg STK-MED ONCE .ROUTE ; Start at 09:18; Stop 01/08/19 at 09:21; Status DC Midazolam HCl (Versed) 2 mg STK-MED ONCE .ROUTE ; Start 01/08/19 at 09:18; Stop 01/08/19 at 09:21; Status DC Metoprolol Tartrate (Lopressor) 25 mg BID PRN PO HYPERTENSION, SEE COMMENTS; Start 01/08/19 at 11:15 Vitamin D (Vitamin D3) 1,000 unit DAILY PO Last administered on 01/09/19at 08:33 ; Start 01/08/19 at 11:00 Pantoprazole Sodium (Protonix) 40 mg DAILYAC PO Last administered on 01/09/19at 08:33; Start 01/08/19 at 11:30 Propafenone HCl (Rythmol) 150 mg BID PO Last administered on 01/09/19at 08:32; Start 01/08/19 at 11:00 Ondansetron HCl (Zofran) 4 mg PRN Q6HRS PRN IV NAUSEA/VOMITING; Start 01/08/19 at 12:00; Stop 01/09/19 at 11:59 Fentanyl Citrate (Fentanyl 2ml Vial) 25 mcg PRN Q5MIN PRN IV MILD PAIN Last administered on 01/08/19at 15:12; Start 01/08/19 at 12:00; Stop 01/09/19 at 11:59 Fentanyl Citrate (Fentanyl 2ml Vial) 50 mcg PRN Q5MIN PRN IV MODERATE TO SEVERE PAIN; Start 01/08/19 at 12:00; Stop 01/09/19 at 11:59 Morphine Sulfate (Morphine Sulfate) 4 mg PRN Q10MIN PRN IV PAIN; Start at 12:00 Ringer's Solution 1,000 ml @ 30 mls/hr Q24H IV Last administered on 01/08/19at 11:53; Start 01/08/19 at 11:46; Stop 01/09/19 at 01:28; Status DC Lidocaine HCl (Xylocaine-Mpf 1% 2ml Vial) 2 ml 1X PRN PRN ID IV START; Start at 12:00; Stop 01/09/19 at 11:59 Hydromorphone HCl (Dilaudid) 0.5 mg PRN Q10MIN PRN IV SEV PAIN, Second choice; Start 01/08/19 at 12:00; Stop 01/09/19 at 11:59 Prochlorperazine Edisylate (Compazine) 5 mg PACU PRN PRN IV NAUSEA, MRX1 Last administered on 01/08/19at 15:11; Start 01/08/19 at 12:00; Stop 01/09/19 at 11:59 Cefazolin Sodium/ Dextrose 50 ml @ 100 mls/hr 1X ONCE IV Last administered on 01/08/19at 12:18; Start 01/08/19 at 12:15; Stop 01/08/19 at 12:44; Status DC Cefazolin Sodium/ Dextrose 50 ml @ As Directed STK-MED ONCE IV ; Start 01/08/19 at 12:07; Stop 01/08/19 at 12:09; Status DC Ketamine HCl (Ketamine) 50 mg STK-MED ONCE .ROUTE ; Start 01/08/19 at 12:53; Stop 01/08/19 at 12:55; Status DC Neostigmine Methylsulfate (Bloxiverz) 10 mg STK-MED ONCE .ROUTE ; Start at 13:23; Stop 01/08/19 at 13:25; Status DC Glycopyrrolate (Robinul) 1 mg STK-MED ONCE .ROUTE ; Start 01/08/19 at 13:23; Stop 01/08/19 at 13:25; Status DC Fentanyl Citrate (Fentanyl 2ml Vial) 100 mcg STK-MED ONCE .ROUTE ; Start at 14:31; Stop 01/08/19 at 14:33; Status DC Prochlorperazine Edisylate (Compazine) 10 mg STK-MED ONCE .ROUTE ; Start at 14:31; Stop 01/08/19 at 14:33; Status DC Senna/Docusate Sodium (Senna Plus) 1 tab DAILY PO Last administered on at 08:33; Start 01/09/19 at 09:00 Polyethylene Glycol (miraLAX PACKET) 17 gm PRN DAILY PRN PO CONSTIPATION; Start 01/08/19 at 19:00 Ondansetron HCl (Zofran) 4 mg PRN Q4HRS PRN IV NAUSEA/VOMITING; Start 01/08/19 at 19:00 Magnesium Hydroxide (Milk Of Magnesia) 2,400 mg 1X PRN PRN PO CONSTIPATION; Start 01/09/19 at 06:00; Stop 01/10/19 at 05:59 Bisacodyl (Dulcolax Supp) 10 mg 1X PRN PRN OK CONSTIPATION; Start 01/09/19 at 16:00; Stop 01/10/19 at 15:59 Dextrose (Dextrose 50%-Water Syringe) 12.5 gm PRN Q15MIN PRN IV SEE COMMENTS; Start 01/08/19 at 19:00 Cefazolin Sodium/ Dextrose 50 ml @ 100 mls/hr Q6H IV Last administered on 01/09at 08:33; Start 01/08/19 at 20:00; Stop 01/09/19 at 08:29; Status DC Alprazolam (Xanax) 0.5 mg PRN Q6HRS PRN PO ANXIETY / AGITATION Last administered on 01/08/19at 19:36; Start 01/08/19 at 19:30 Digoxin (Lanoxin) 500 mcg 1X ONCE IV Last administered on 01/09/19at 09:14; Start 01/09/19 at 09:00; Stop 01/09/19 at 09:01; Status DC Active Scripts Active Reported Vitamin D (Cholecalciferol (Vitamin D3)) 1,000 Unit Capsule 1 Cap PO DAILY PRN Omeprazole 20 Mg Capsule. 1 Cap PO DAILY PRN Eliquis (Apixaban) 5 Mg Tablet 5 Mg PO BID PRN Metoprolol Tartrate 25 Mg Tablet 1 Tab PO BID PRN Propafenone Hcl 150 Mg Tablet 150 Mg PO BID Vitals/I & O Vital Sign - Last 24 Hours 01/08/19 01/08/19 01/08/19 01/08/19 10:53 11:00 12:00 13:45 Temp 98.6 97.1 98.6 97.1 Pulse 59 76 56 Resp 20 16 B/P (MAP) 99/52 130/69 102/56 Pulse Ox 94 95 O2 Delivery Nasal Cannula Nasal Cannula Simple Mask O2 Flow Rate 2.0 2 8 01/08/19 01/08/19 01/08/19 01/08/19 14:00 14:15 14:30 14:45 Temp 97.1 97.1 97.1 97.1 97.1 97.1 97.1 97.1 Pulse 54 56 56 66 Resp 16 17 17 18 B/P (MAP) 96/52 101/50 113/63 100/51 Pulse Ox 94 95 93 94 O2 Delivery Simple Mask Simple Mask Nasal Cannula Nasal Cannula O2 Flow Rate 8 8 2 2 01/08/19 01/08/19 01/08/19 01/08/19 15:00 15:12 15:15 15:45 Temp 97.3 97.3 98.1 97.3 97.3 98.1 Pulse 56 62 59 Resp 17 17 18 20 B/P (MAP) 96/45 97/41 99/52 (68) Pulse Ox 98 97 95 93 O2 Delivery Nasal Cannula Nasal Cannula Nasal Cannula Nasal Cannula O2 Flow Rate 2 2.0 2.0 2.0 01/08/19 01/08/19 01/08/19 01/08/19 15:47 16:00 16:10 16:15 Temp 98.1 98.1 Pulse 59 58 66 Resp 20 20 20 B/P (MAP) 99/52 (68) 98/51 (67) 96/56 (69) Pulse Ox 93 98 95 O2 Delivery Nasal Cannula Nasal Cannula Nasal Cannula Nasal Cannula O2 Flow Rate 2.0 2.0 2.0 2.0 01/08/19 01/08/19 01/08/19 01/08/19 16:30 17:00 17:30 18:30 Pulse 67 62 74 69 Resp 20 20 20 20 B/P (MAP) 92/41 (58) 87/48 (61) 91/51 (64) 93/54 (67) Pulse Ox 95 97 95 96 O2 Delivery Nasal Cannula Nasal Cannula Nasal Cannula Nasal Cannula O2 Flow Rate 2.0 2.0 2.0 2.0 01/08/19 01/08/19 01/09/19 01/09/19 19:42 19:53 03:00 04:07 Temp 98.5 98.1 98.5 98.1 Pulse 70 74 Resp 20 20 16 20 B/P (MAP) 99/55 (70) 110/60 (77) Pulse Ox 96 96 91 O2 Delivery Nasal Cannula Nasal Cannula Nasal Cannula Nasal Cannula O2 Flow Rate 2.0 2.0 2.0 2.0 01/09/19 01/09/19 01/09/19 01/09/19 07:05 07:15 08:27 08:32 Temp 98.1 98.1 Pulse 80 127 127 Resp 18 B/P (MAP) 93/72 (79) 106/70 (82) 106/70 Pulse Ox 94 O2 Delivery Nasal Cannula Nasal Cannula Nasal Cannula O2 Flow Rate 2.0 2.0 2.0 01/09/19 09:14 Pulse 140 B/P (MAP) 99/60 Intake and Output 01/08/19 01/08/19 01/09/19 15:00 23:00 07:00 Intake Total 1050 ml 1300 ml Output Total 1250 ml 1150 ml 350 ml Balance -1250 ml -100 ml 950 ml STACY BRASWELL MD Jan 09, 2019 10:20
[2019-01-09] MEDS ORDERED: METOPROLOL TARTRATE 5 MG/5 ML VIAL. IVP ONE (10:45)
--- NOTE | 2019-01-09 12:35 | PDOC ---
MARIA ELENA WEEKS RN LACTATION 01/09/19 1235: CARDIO Progress Notes Date and Time Date of Service 01/09/2019 Time of Evaluation 1230 Subjective Subjective: No Chest Pain, No shortness of breath, No Palpitations Vitals Vitals Vital Signs Date Time Temp Pulse Resp B/P (MAP) Pulse Ox O2 Delivery O2 Flow Rate FiO2 01/09/19 11:16 98.9 110 20 107/62 (77) 97 Nasal Cannula 2.0 98.9 Weight Weight [ ] Input and Output Intake and Output Intake and Output 01/09/19 07:00 Intake Total 2350 ml Output Total 2750 ml Balance -400 ml Intake Oral 600 ml IV Total 1050 ml Blood Product IV Normal Saline Flush 700 ml Output Urine Total 2400 ml Estimated Blood Loss 350 ml Laboratory Labs Laboratory Tests Test 01/08/19 16:47 01/08/19 20:08 01/09/19 08:50 Glucose (Fingerstick) 151 mg/dL (70-99) 151 mg/dL (70-99) White Blood Count 11.1 x10^3/uL (4.0-11.0) Red Blood Count 3.61 x10^6/uL (3.50-5.40) Hemoglobin 10.7 g/dL (12.0-15.5) Hematocrit 32.7 % (36.0-47.0) Mean Corpuscular Volume 91 fL (79-100) Mean Corpuscular Hemoglobin 30 pg (25-35) Mean Corpuscular Hemoglobin Concent 33 g/dL (31-37) Red Cell Distribution Width 13.3 % (11.5-14.5) Platelet Count 177 x10^3/uL (140-400) Neutrophils (%) (Auto) 79 % (31-73) Lymphocytes (%) (Auto) 15 % (24-48) Monocytes (%) (Auto) 6 % (0-9) Eosinophils (%) (Auto) 0 % (0-3) Basophils (%) (Auto) 0 % (0-3) Neutrophils # (Auto) 8.8 x10^3uL (1.8-7.7) Lymphocytes # (Auto) 1.6 x10^3/uL (1.0-4.8) Monocytes # (Auto) 0.7 x10^3/uL (0.0-1.1) Eosinophils # (Auto) 0.0 x10^3/uL (0.0-0.7) Basophils # (Auto) 0.0 x10^3/uL (0.0-0.2) Sodium Level 141 mmol/L (136-145) Potassium Level 4.0 mmol/L (3.5-5.1) Chloride Level 104 mmol/L (98-107) Carbon Dioxide Level 27 mmol/L (21-32) Anion Gap 10 (6-14) Blood Urea Nitrogen 21 mg/dL (7-20) Creatinine 0.8 mg/dL (0.6-1.0) Estimated GFR (Cockcroft-Gault) 70.9 Glucose Level 122 mg/dL (70-99) Calcium Level 8.6 mg/dL (8.5-10.1) Physical Exam HEENT: Neck Supple W Full Motion Chest: Symmetric LUNGS: Clear to Auscultation Heart: S1S2, no thrills, irregularly irregular (AFIB) Abdomen: Soft N/T Extremities: No Calf Tenderness Neurology: alert, oriented, follow commands Assessment Assessment 1. Traumatic mechanical fall: S/P right hip ORIF POD#1 2. AFIB RVR: paroxysmal by hx with Rythmol use. EKG SR prior to surgery. EF and WM nml 3. Hypertension; controlled but marginal 4. Post op anemia: Hgb 13.9 preop to 10.7 post op Recommendations 1. x1 metoprolol, Digoxin. Start on IVF. If BP remains marginal then will stop Rythmol and will start on amiodarone protocol 2. Restart eliquis once OKd by ortho GENA KELLY MD 01/10/19 0837: CARDIO Progress Notes Assessment Assessment Patient seen and examined 01/09/19. Agree with INSTRUMENT REPAIR SPECIALIST's assessment and plan. Continue postop care per orthopedics team and resume eliquis for stroke prophylaxis when okay from surgical standpoint MARIA ELENA WEEKS APRN Jan 09, 2019 12:35 GENA KELLY MD Jan 10, 2019 08:37
[2019-01-09] MEDS ORDERED: IV 1/2 NORMAL SALINE 1,000 ML IV ONE (12:45)
[2019-01-09] MEDS: ALPRAZolam 0.5 MG TABLET PO PRN ×2 (12:56→20:55)
[2019-01-09] MEDS ORDERED: MAGNESIUM SULFATE 2GM 50 ML IV ONE (15:00)
[2019-01-09] MEDS: HYDROcodone/APAP 7.5/325MG 1 TAB TABLET PO PRN ×2 (15:35→20:56)
--- NOTE | 2019-01-09 15:53 | CARD ---
MR#: [id number] Date of Study: 01/09/2019 Ordering Physician: STACY BRASWELL, Referring Physician: LESLIE RANGEL Tech: Zenobia Vidal CAROLINE APPROVED REPORT EXAM: Two-dimensional and M-mode echocardiogram with Doppler and color Doppler. Other Information Quality : Good Rhythm : Atrial Fibrillation INDICATION Atrial Fibrillation Hypertension/HCVD 2D DIMENSIONS RVDd2.6 (2.9-3.5cm)Left Atrium(2D)3.0 (1.6-4.0cm) IVSd1.0 (0.7-1.1cm)Aortic Root(2D)3.6 (2.0-3.7cm) LVDd3.1 (3.9-5.9cm)LVOT Diameter2.0 (1.8-2.4cm) PWd1.0 (0.7-1.1cm)LVDs2.0 (2.5-4.0cm) FS (%) 35.9 %SV24.8 ml LVEF(%)65.0 (>50%) Aortic Valve AoV Peak Edin.179.6cm/sAoV VTI23.7cm AO Peak GR.12.9mmHgLVOT Peak Edin.156.9cm/s AO Mean GR.8mmHgAVA (VMAX)2.69cm2 MELANIE (VTI)3.00cm2 Mitral Valve MV E Ujvvqysj01.1cm/sMV DECEL [id number] MV A Qnrastfw66.8cm/sE/A Ratio1.7 Tricuspid Valve TR P. [id number]/sRAP [id number] TR Peak Gr.[id number] LEFT VENTRICLE The left ventricle is normal size. There is normal left ventricular wall thickness. The left ventricu lar systolic function is normal and the ejection fraction is within normal range. The Ejection Fracti on is 60-65%. There is normal LV segmental wall motion. RIGHT VENTRICLE The right ventricle is normal size. The right ventricular systolic function is normal. ATRIA The left atrium size is normal. The right atrium size is normal. The interatrial septum is intact wit h no evidence for an atrial septal defect or patent foramen ovale as noted on 2-D or Doppler imaging. AORTIC VALVE The aortic valve is not well visualized but appears to be functioning normally by Doppler interrogati on. Doppler and Color Flow revealed no significant aortic regurgitation. There is no significant aort ic valvular stenosis. MITRAL VALVE The mitral valve is normal in structure and function. There is no evidence of mitral valve prolapse. There is no mitral valve stenosis. Doppler and Color Flow revealed trace mitral valve regurgitation. TRICUSPID VALVE Leaflet or valve apparatus displacement raises possibility of Ebstein�s anomaly. Doppler and Color Fl ow revealed mild tricuspid regurgitation. The PA pressure was estimated at 41 mmHg. There is no tricu spid valve stenosis. PULMONIC VALVE The pulmonic valve is not well visualized. Doppler and Color Flow revealed no pulmonic valvular regur gitation. There is no pulmonic valvular stenosis. GREAT VESSELS The aortic root is normal in size. The ascending aorta is moderately dilated at 4.1 cm. The IVC is no rmal in size and collapses >50% with inspiration. PERICARDIAL EFFUSION There is no evidence of significant pericardial effusion. Critical Notification Critical Value: No <Conclusion> The left ventricle is normal size. The left ventricular systolic function is normal and the ejection fraction is within normal range. The Ejection Fraction is 60-65%. There is no significant aortic valvular stenosis. Doppler and Color Flow revealed no significant aortic regurgitation. Doppler and Color Flow revealed trace mitral valve regurgitation. Doppler and Color Flow revealed mild tricuspid regurgitation. The PA pressure was estimated at 41 mmHg. The ascending aorta is moderately dilated at 4.1 cm. Signed by : Kristofer Mcguire MD Electronically Approved : 01/09/2019 15:52:39
[2019-01-09] MEDS ORDERED: BISACODYL 10 MG SUPP.RECT. PR PRN (16:00)
[2019-01-09] MEDS ORDERED: AMIODARONE 900 MG in IV DEXTROSE 5% 500 ML IV PRN (17:15)
[2019-01-09] MEDS ORDERED: AMIODARONE 150 MG in IV DEXTROSE 5% 100ML 100 ML IV ONE (17:15)
[2019-01-09] MEDS: APIXABAN 5 MG TABLET. PO SCH (20:55)
[2019-01-09] MEDS: METOPROLOL TART IMMED RELEASE 25 MG TABLET. PO SCH (20:57)
[2019-01-10] MEDS ORDERED: IV NORMAL SALINE 1000ML BAG 1,000 ML IV ONE (01:00)
[2019-01-10] MEDS: fentaNYL PF VIAL 100 MCG/2 ML VIAL IV PRN ×3 (02:49→15:51)
[2019-01-10] MEDS: HYDROcodone/APAP 7.5/325MG 1 TAB TABLET PO PRN ×5 (02:58→21:10)
[2019-01-10 03:00] VITALS: BP 100/69
[2019-01-10 05:50] LABS: CALCIUM 8.2 mg/dL (8.5-10.1); CREATININE 0.7 mg/dL (0.6-1.0); GFR 82.7; POTASSIUM 3.8 mmol/L (3.5-5.1)
[2019-01-10 05:56] LABS: BASO % 1 % (0-3); EOS # 0.1 x10^3/uL (0.0-0.7); EOS % 1 % (0-3); HEMATOCRIT 28.6 % (36.0-47.0); HEMOGLOBIN 9.5 g/dL (12.0-15.5); LYMPH # 1.5 x10^3/uL (1.0-4.8); LYMPH % 22 % (24-48); MEAN CORPUSCULAR HEMOGLOBIN 30 pg (25-35); MEAN CORPUSCULAR HGB CONC 33 g/dL (31-37); MEAN CORPUSCULAR VOLUME 91 fL (79-100); MONO # 0.4 x10^3/uL (0.0-1.1); MONO % 7 % (0-9); NEUT # 4.6 x10^3uL (1.8-7.7); NEUT % 70 % (31-73); PLATELET COUNT 118 x10^3/uL (140-400); RED BLOOD COUNT 3.16 x10^6/uL (3.50-5.40); RED CELL DISTRIBUTION WIDTH 13.2 % (11.5-14.5); WHITE BLOOD COUNT 6.6 x10^3/uL (4.0-11.0)
[2019-01-10 07:00] VITALS: BP 109/56
[2019-01-10] MEDS: CHOLECALCIFEROL (VITAMIN D3) 1,000 UNIT TABLET PO SCH (10:01)
[2019-01-10] MEDS: METOPROLOL TART IMMED RELEASE 25 MG TABLET. PO SCH ×2 (10:01→21:09)
[2019-01-10] MEDS: APIXABAN 5 MG TABLET. PO SCH ×2 (10:01→21:08)
[2019-01-10] MEDS: SENNOSIDES/DOCUSATE 8.6/50MG TABLET. PO SCH (10:01)
[2019-01-10] MEDS: PANTOPRAZOLE 40 MG TABLET.DR. PO SCH (10:01)
[2019-01-10 11:00] VITALS: BP 120/58
--- NOTE | 2019-01-10 13:44 | PDOC ---
PROGRESS NOTES Chief Complaint Chief Complaint CC: Fall, s/p right hip ORIF 01/08 AFIB with RVR HTN Anemia, post op Anxiety History of Present Illness History of Present Illness Pt is a pleasant 68 y/o female who was admitted due to hip fracture after a fall. She is s/p right hip ORIF on 01/08. Today she was seen and examined in her room. She was laying in bed visiting with family. She states she feels good and that she has not started PT/OT yet due to her irregular heart rate. She is on an amio drip and her rate is well controlled. She has SCD on left leg, macdonald to BSD, and is on O2 NC. Hope to start PT/OT soon. She has no new complaints today. Vitals Vitals Vital Signs Date Time Temp Pulse Resp B/P (MAP) Pulse Ox O2 Delivery O2 Flow Rate FiO2 01/10/19 11:08 18 Nasal Cannula 2.0 01/10/19 11:00 98.4 72 120/58 (78) 99 98.4 Physical Exam General: Alert, Oriented X3, Cooperative, mild distress Heart: Regular rate, Normal S1, Normal S2 Lungs: Clear Abdomen: Normal bowel sounds, Soft Extremities: No clubbing, No cyanosis, Other (Dressing clean, dry and intact. SCDs. 2 peripheral IVs on left arm) Skin: No breakdown Labs LABS Laboratory Tests Test 01/10/19 04:20 White Blood Count 6.6 x10^3/uL (4.0-11.0) Red Blood Count 3.16 x10^6/uL (3.50-5.40) Hemoglobin 9.5 g/dL (12.0-15.5) Hematocrit 28.6 % (36.0-47.0) Mean Corpuscular Volume 91 fL (79-100) Mean Corpuscular Hemoglobin 30 pg (25-35) Mean Corpuscular Hemoglobin Concent 33 g/dL (31-37) Red Cell Distribution Width 13.2 % (11.5-14.5) Platelet Count 118 x10^3/uL (140-400) Neutrophils (%) (Auto) 70 % (31-73) Lymphocytes (%) (Auto) 22 % (24-48) Monocytes (%) (Auto) 7 % (0-9) Eosinophils (%) (Auto) 1 % (0-3) Basophils (%) (Auto) 1 % (0-3) Neutrophils # (Auto) 4.6 x10^3uL (1.8-7.7) Lymphocytes # (Auto) 1.5 x10^3/uL (1.0-4.8) Monocytes # (Auto) 0.4 x10^3/uL (0.0-1.1) Eosinophils # (Auto) 0.1 x10^3/uL (0.0-0.7) Basophils # (Auto) 0.0 x10^3/uL (0.0-0.2) Sodium Level 141 mmol/L (136-145) Potassium Level 3.8 mmol/L (3.5-5.1) Chloride Level 105 mmol/L (98-107) Carbon Dioxide Level 29 mmol/L (21-32) Anion Gap 7 (6-14) Blood Urea Nitrogen 17 mg/dL (7-20) Creatinine 0.7 mg/dL (0.6-1.0) Estimated GFR (Cockcroft-Gault) 82.7 Glucose Level 134 mg/dL (70-99) Calcium Level 8.2 mg/dL (8.5-10.1) Magnesium Level 2.1 mg/dL (1.8-2.4) Review of Systems Review of Systems Gen: denies fever or chills Heart: denies CP, palpitation Lung: denies cough, SOA Abd: denies pain, diarrhea Ext: rt hip pain, controlled Assessment and Plan Assessmemt and Plan Assessment: Fall, s/p right hip ORIF POD2 AFIB with RVR HTN Anemia, post op Anxiety Plan: Continue amio drip, plan to convert to PO Wound care PT/OT PRN narcotics Monitor labs D/C disposition pending Comment Review of Relevant I have reviewed the following items marly (where applicable) has been applied. Labs Laboratory Tests Test 01/08/19 16:47 01/08/19 20:08 01/09/19 08:50 01/10/19 04:20 Glucose (Fingerstick) 151 mg/dL (70-99) 151 mg/dL (70-99) White Blood Count 11.1 x10^3/uL (4.0-11.0) 6.6 x10^3/uL (4.0-11.0) Red Blood Count 3.61 x10^6/uL (3.50-5.40) 3.16 x10^6/uL (3.50-5.40) Hemoglobin 10.7 g/dL (12.0-15.5) 9.5 g/dL (12.0-15.5) Hematocrit 32.7 % (36.0-47.0) 28.6 % (36.0-47.0) Mean Corpuscular Volume 91 fL (79-100) 91 fL (79-100) Mean Corpuscular Hemoglobin 30 pg (25-35) 30 pg (25-35) Mean Corpuscular Hemoglobin Concent 33 g/dL (31-37) 33 g/dL (31-37) Red Cell Distribution Width 13.3 % (11.5-14.5) 13.2 % (11.5-14.5) Platelet Count 177 x10^3/uL (140-400) 118 x10^3/uL (140-400) Neutrophils (%) (Auto) 79 % (31-73) 70 % (31-73) Lymphocytes (%) (Auto) 15 % (24-48) 22 % (24-48) Monocytes (%) (Auto) 6 % (0-9) 7 % (0-9) Eosinophils (%) (Auto) 0 % (0-3) 1 % (0-3) Basophils (%) (Auto) 0 % (0-3) 1 % (0-3) Neutrophils # (Auto) 8.8 x10^3uL (1.8-7.7) 4.6 x10^3uL (1.8-7.7) Lymphocytes # (Auto) 1.6 x10^3/uL (1.0-4.8) 1.5 x10^3/uL (1.0-4.8) Monocytes # (Auto) 0.7 x10^3/uL (0.0-1.1) 0.4 x10^3/uL (0.0-1.1) Eosinophils # (Auto) 0.0 x10^3/uL (0.0-0.7) 0.1 x10^3/uL (0.0-0.7) Basophils # (Auto) 0.0 x10^3/uL (0.0-0.2) 0.0 x10^3/uL (0.0-0.2) Sodium Level 141 mmol/L (136-145) 141 mmol/L (136-145) Potassium Level 4.0 mmol/L (3.5-5.1) 3.8 mmol/L (3.5-5.1) Chloride Level 104 mmol/L (98-107) 105 mmol/L (98-107) Carbon Dioxide Level 27 mmol/L (21-32) 29 mmol/L (21-32) Anion Gap 10 (6-14) 7 (6-14) Blood Urea Nitrogen 21 mg/dL (7-20) 17 mg/dL (7-20) Creatinine 0.8 mg/dL (0.6-1.0) 0.7 mg/dL (0.6-1.0) Estimated GFR (Cockcroft-Gault) 70.9 82.7 Glucose Level 122 mg/dL (70-99) 134 mg/dL (70-99) Calcium Level 8.6 mg/dL (8.5-10.1) 8.2 mg/dL (8.5-10.1) Magnesium Level 1.6 mg/dL (1.8-2.4) 2.1 mg/dL (1.8-2.4) Laboratory Tests Test 01/10/19 04:20 White Blood Count 6.6 x10^3/uL (4.0-11.0) Red Blood Count 3.16 x10^6/uL (3.50-5.40) Hemoglobin 9.5 g/dL (12.0-15.5) Hematocrit 28.6 % (36.0-47.0) Mean Corpuscular Volume 91 fL (79-100) Mean Corpuscular Hemoglobin 30 pg (25-35) Mean Corpuscular Hemoglobin Concent 33 g/dL (31-37) Red Cell Distribution Width 13.2 % (11.5-14.5) Platelet Count 118 x10^3/uL (140-400) Neutrophils (%) (Auto) 70 % (31-73) Lymphocytes (%) (Auto) 22 % (24-48) Monocytes (%) (Auto) 7 % (0-9) Eosinophils (%) (Auto) 1 % (0-3) Basophils (%) (Auto) 1 % (0-3) Neutrophils # (Auto) 4.6 x10^3uL (1.8-7.7) Lymphocytes # (Auto) 1.5 x10^3/uL (1.0-4.8) Monocytes # (Auto) 0.4 x10^3/uL (0.0-1.1) Eosinophils # (Auto) 0.1 x10^3/uL (0.0-0.7) Basophils # (Auto) 0.0 x10^3/uL (0.0-0.2) Sodium Level 141 mmol/L (136-145) Potassium Level 3.8 mmol/L (3.5-5.1) Chloride Level 105 mmol/L (98-107) Carbon Dioxide Level 29 mmol/L (21-32) Anion Gap 7 (6-14) Blood Urea Nitrogen 17 mg/dL (7-20) Creatinine 0.7 mg/dL (0.6-1.0) Estimated GFR (Cockcroft-Gault) 82.7 Glucose Level 134 mg/dL (70-99) Calcium Level 8.2 mg/dL (8.5-10.1) Magnesium Level 2.1 mg/dL (1.8-2.4) Medications Current Medications Ondansetron HCl (Zofran) 4 mg STK-MED ONCE .ROUTE ; Start 01/08/19 at 03:23; Stop 01/08/19 at 03:26; Status DC Ondansetron HCl (Zofran) 4 mg 1X ONCE IV Last administered on 01/08/19at 03:25 ; Start 01/08/19 at 04:00; Stop 01/08/19 at 04:01; Status DC Metoclopramide HCl (Reglan Vial) 10 mg 1X ONCE IV Last administered on at 04:28; Start 01/08/19 at 04:15; Stop 01/08/19 at 04:16; Status DC Morphine Sulfate (Morphine Sulfate) 4 mg 1X ONCE IV Last administered on at 04:29; Start 01/08/19 at 04:15; Stop 01/08/19 at 04:16; Status DC Ondansetron HCl (Zofran) 4 mg PRN Q8HRS PRN IV NAUSEA/VOMITING; Start 01/08/19 at 04:15; Stop 01/09/19 at 04:14; Status DC Morphine Sulfate (Morphine Sulfate) 4 mg PRN Q2HR PRN IV PAIN Last administered on 01/09/19at 04:07; Start 01/08/19 at 04:15; Stop 01/09/19 at 04:14 ; Status DC Acetaminophen (Tylenol) 650 mg PRN Q4HRS PRN PO FEVER; Start 01/08/19 at 04:15 ; Stop 01/09/19 at 04:14; Status DC Propofol 20 ml @ As Directed STK-MED ONCE IV ; Start 01/08/19 at 09:17; Stop 10/16 at 09:20; Status DC Dexamethasone Sodium Phosphate (Decadron) 20 mg STK-MED ONCE .ROUTE ; Start 10/16 at 09:17; Stop 01/08/19 at 09:20; Status DC Famotidine (Pepcid Vial) 20 mg STK-MED ONCE .ROUTE ; Start 01/08/19 at 09:17; Stop 01/08/19 at 09:20; Status DC Lidocaine HCl (Lidocaine Pf 2% Vial) 5 ml STK-MED ONCE .ROUTE ; Start 01/08/19 at 09:17; Stop 01/08/19 at 09:20; Status DC Ondansetron HCl (Zofran) 4 mg STK-MED ONCE .ROUTE ; Start 01/08/19 at 09:17; Stop 01/08/19 at 09:20; Status DC Rocuronium [place] (Zemuron) 50 mg STK-MED ONCE .ROUTE ; Start 01/08/19 at 09:18 ; Stop 01/08/19 at 09:21; Status DC Fentanyl Citrate (Fentanyl 2ml Vial) 100 mcg STK-MED ONCE .ROUTE ; Start at 09:18; Stop 01/08/19 at 09:21; Status DC Midazolam HCl (Versed) 2 mg STK-MED ONCE .ROUTE ; Start 01/08/19 at 09:18; Stop 01/08/19 at 09:21; Status DC Metoprolol Tartrate (Lopressor) 25 mg BID PRN PO HYPERTENSION, SEE COMMENTS; Start 01/08/19 at 11:15; Stop 01/09/19 at 17:20; Status DC Vitamin D (Vitamin D3) 1,000 unit DAILY PO Last administered on 01/10/19at 10:01 ; Start 01/08/19 at 11:00 Pantoprazole Sodium (Protonix) 40 mg DAILYAC PO Last administered on 01/10/19at 10:01; Start 01/08/19 at 11:30 Propafenone HCl (Rythmol) 150 mg BID PO Last administered on 01/09/19at 08:32; Start 01/08/19 at 11:00; Stop 01/09/19 at 17:14; Status DC Ondansetron HCl (Zofran) 4 mg PRN Q6HRS PRN IV NAUSEA/VOMITING; Start 01/08/19 at 12:00; Stop 01/09/19 at 11:59; Status DC Fentanyl Citrate (Fentanyl 2ml Vial) 25 mcg PRN Q5MIN PRN IV MILD PAIN Last administered on 01/08/19at 15:12; Start 01/08/19 at 12:00; Stop 01/09/19 at 11:59 ; Status DC Fentanyl Citrate (Fentanyl 2ml Vial) 50 mcg PRN Q5MIN PRN IV MODERATE TO SEVERE PAIN; Start 01/08/19 at 12:00; Stop 01/09/19 at 11:59; Status DC Morphine Sulfate (Morphine Sulfate) 4 mg PRN Q10MIN PRN IV PAIN; Start at 12:00; Stop 01/10/19 at 07:25; Status DC Ringer's Solution 1,000 ml @ 30 mls/hr Q24H IV Last administered on 01/08/19at 11:53; Start 01/08/19 at 11:46; Stop 01/09/19 at 01:28; Status DC Lidocaine HCl (Xylocaine-Mpf 1% 2ml Vial) 2 ml 1X PRN PRN ID IV START; Start at 12:00; Stop 01/09/19 at 11:59; Status DC Hydromorphone HCl (Dilaudid) 0.5 mg PRN Q10MIN PRN IV SEV PAIN, Second choice; Start 01/08/19 at 12:00; Stop 01/09/19 at 11:59; Status DC Prochlorperazine Edisylate (Compazine) 5 mg PACU PRN PRN IV NAUSEA, MRX1 Last administered on 01/08/19at 15:11; Start 01/08/19 at 12:00; Stop 01/09/19 at 11:59 ; Status DC Cefazolin Sodium/ Dextrose 50 ml @ 100 mls/hr 1X ONCE IV Last administered on 01/08/19at 12:18; Start 01/08/19 at 12:15; Stop 01/08/19 at 12:44; Status DC Cefazolin Sodium/ Dextrose 50 ml @ As Directed STK-MED ONCE IV ; Start 01/08/19 at 12:07; Stop 01/08/19 at 12:09; Status DC Ketamine HCl (Ketamine) 50 mg STK-MED ONCE .ROUTE ; Start 01/08/19 at 12:53; Stop 01/08/19 at 12:55; Status DC Neostigmine Methylsulfate (Bloxiverz) 10 mg STK-MED ONCE .ROUTE ; Start at 13:23; Stop 01/08/19 at 13:25; Status DC Glycopyrrolate (Robinul) 1 mg STK-MED ONCE .ROUTE ; Start 01/08/19 at 13:23; Stop 01/08/19 at 13:25; Status DC Fentanyl Citrate (Fentanyl 2ml Vial) 100 mcg STK-MED ONCE .ROUTE ; Start at 14:31; Stop 01/08/19 at 14:33; Status DC Prochlorperazine Edisylate (Compazine) 10 mg STK-MED ONCE .ROUTE ; Start at 14:31; Stop 01/08/19 at 14:33; Status DC Senna/Docusate Sodium (Senna Plus) 1 tab DAILY PO Last administered on at 10:01; Start 01/09/19 at 09:00 Polyethylene Glycol (miraLAX PACKET) 17 gm PRN DAILY PRN PO CONSTIPATION; Start 01/08/19 at 19:00 Ondansetron HCl (Zofran) 4 mg PRN Q4HRS PRN IV NAUSEA/VOMITING; Start 01/08/19 at 19:00 Magnesium Hydroxide (Milk Of Magnesia) 2,400 mg 1X PRN PRN PO CONSTIPATION; Start 01/09/19 at 06:00; Stop 01/10/19 at 05:59; Status DC Bisacodyl (Dulcolax Supp) 10 mg 1X PRN PRN [place] CONSTIPATION; Start 01/09/19 at 16:00; Stop 01/10/19 at 15:59 Dextrose (Dextrose 50%-Water Syringe) 12.5 gm PRN Q15MIN PRN IV SEE COMMENTS; Start 01/08/19 at 19:00 Cefazolin Sodium/ Dextrose 50 ml @ 100 mls/hr Q6H IV Last administered on 01/09at 08:33; Start 01/08/19 at 20:00; Stop 01/09/19 at 08:29; Status DC Alprazolam (Xanax) 0.5 mg PRN Q6HRS PRN PO ANXIETY / AGITATION Last administered on 01/09/19at 20:55; Start 01/08/19 at 19:30 Digoxin (Lanoxin) 500 mcg 1X ONCE IV Last administered on 01/09/19at 09:14; Start 01/09/19 at 09:00; Stop 01/09/19 at 09:01; Status DC Metoprolol Tartrate (Lopressor Vial) 5 mg 1X ONCE IVP Last administered on 11/15at 10:46; Start 01/09/19 at 10:45; Stop 01/09/19 at 10:46; Status DC Sodium Chloride 1,000 ml @ 100 mls/hr 1X ONCE IV Last administered on at 12:46; Start 01/09/19 at 12:45; Stop 01/09/19 at 22:44; Status DC Digoxin (Lanoxin) 250 mcg 1X ONCE IV Last administered on 01/09/19at 14:50; Start 01/09/19 at 15:00; Stop 01/09/19 at 15:01; Status DC Magnesium Sulfate 50 ml @ 25 mls/hr 1X ONCE IV Last administered on 01/09/19at 14:49; Start 01/09/19 at 15:00; Stop 01/09/19 at 16:59; Status DC Fentanyl Citrate (Fentanyl 2ml Vial) 50 mcg PRN Q3HRS PRN IV PAIN Last administered on 01/10/19at 07:31; Start 01/09/19 at 15:15 Acetaminophen/ Hydrocodone Bitart (Lortab 7.5/325) 1 tab PRN Q4HRS PRN PO PAIN Last administered on 2/13/19at 10:08; Start 01/09/19 at 15:15 Apixaban (Eliquis) 5 mg BID PO Last administered on 01/10/19at 10:01; Start 11/15 at 21:00 Amiodarone HCl 150 mg/Dextrose 103 ml @ 600 mls/hr 1X ONCE IV Last administered on 01/09/19at 17:32; Start 01/09/19 at 17:15; Stop 01/09/19 at 17:25 ; Status DC Amiodarone HCl 900 mg/Dextrose 518 ml @ 0 mls/hr CONT PRN IV SEE I/O RECORD Last administered on 01/09/19at 17:33; Start 01/09/19 at 17:15; Stop 01/10/19 at 17:14 Metoprolol Tartrate (Lopressor) 25 mg BID PO Last administered on 01/10/19at 10: 01; Start 01/09/19 at 21:00 Sodium Chloride 1,000 ml @ 75 mls/hr 1X ONCE IV Last administered on at 00:45; Start 01/10/19 at 01:00; Stop 01/10/19 at 14:19 Active Scripts Active Reported Vitamin D (Cholecalciferol (Vitamin D3)) 1,000 Unit Capsule 1 Cap PO DAILY PRN Omeprazole 20 Mg Capsule. 1 Cap PO DAILY PRN Eliquis (Apixaban) 5 Mg Tablet 5 Mg PO BID Metoprolol Tartrate 25 Mg Tablet 1 Tab PO BID PRN Propafenone Hcl 150 Mg Tablet 150 Mg PO BID Vitals/I & O Vital Sign - Last 24 Hours 01/09/19 01/09/19 01/09/19 01/09/19 14:50 14:59 15:35 17:32 Temp 98.6 98.6 Pulse 112 105 105 Resp 20 B/P (MAP) 112/61 101/74 (83) 101/74 Pulse Ox 95 O2 Delivery Nasal Cannula Nasal Cannula O2 Flow Rate 2.0 2.0 01/09/19 01/09/19 01/09/19 01/09/19 19:17 20:00 20:56 20:57 Temp 98.2 98.2 Pulse 90 105 Resp 18 B/P (MAP) 111/59 (76) 91/53 Pulse Ox 96 96 O2 Delivery Nasal Cannula Nasal Cannula Nasal Cannula O2 Flow Rate 2.0 2.0 2.0 01/09/19 01/09/19 01/10/19 01/10/19 21:56 23:24 02:49 03:00 Temp 97.9 98.1 97.9 98.1 Pulse 96 80 Resp 16 24 B/P (MAP) 107/58 (74) 100/69 (79) Pulse Ox 96 96 96 95 O2 Delivery Nasal Cannula Nasal Cannula Nasal Cannula O2 Flow Rate 2.0 2.0 2.0 01/10/19 01/10/19 01/10/19 01/10/19 03:19 06:04 07:00 07:31 Temp 98.2 98.2 Pulse 109 Resp 18 16 B/P (MAP) 109/56 (73) Pulse Ox 96 96 99 O2 Delivery Nasal Cannula Nasal Cannula Nasal Cannula O2 Flow Rate 2.0 2.0 2.0 2.0 01/10/19 01/10/19 01/10/19 01/10/19 08:00 08:01 10:01 10:08 Pulse 77 Resp 16 16 B/P (MAP) 107/59 O2 Delivery Nasal Cannula Room Air Nasal Cannula O2 Flow Rate 2.0 2.0 01/10/19 01/10/19 11:00 11:08 Temp 98.4 98.4 Pulse 72 Resp 18 18 B/P (MAP) 120/58 (78) Pulse Ox 99 O2 Delivery Nasal Cannula Nasal Cannula O2 Flow Rate 2.0 2.0 Intake and Output 01/09/19 01/09/19 01/10/19 15:00 23:00 07:00 Intake Total 240 ml 640 ml 2054 ml Output Total 350 ml 1750 ml Balance -110 ml 640 ml 304 ml OLMAN HAMMONDS III DO Jan 10, 2019 13:44
[2019-01-10] MEDS ORDERED: ANTI-COAG MONITOR BY PHARMACY. MC PRN (14:15)
[2019-01-10 15:00] VITALS: BP 111/60
--- NOTE | 2019-01-10 16:09 | PDOC ---
MARIA ELENA WEEKS MINING CONSULTANT 01/10/19 1609: CARDIO Progress Notes Date and Time Date of Service 01/10/2019 Time of Evaluation 1530 Subjective Subjective: No Chest Pain, No shortness of breath, No Palpitations Vitals Vitals Vital Signs Date Time Temp Pulse Resp B/P (MAP) Pulse Ox O2 Delivery O2 Flow Rate FiO2 01/10/19 15:00 98.1 78 18 111/60 (77) 96 Nasal Cannula 2.0 98.1 Weight Weight [ ] Input and Output Intake and Output Intake and Output 01/10/19 07:00 Intake Total 2934 ml Output Total 2100 ml Balance 834 ml Intake Oral 1080 ml IV Total 1854 ml Output Urine Total 2100 ml Laboratory Labs Laboratory Tests Test 01/10/19 04:20 White Blood Count 6.6 x10^3/uL (4.0-11.0) Red Blood Count 3.16 x10^6/uL (3.50-5.40) Hemoglobin 9.5 g/dL (12.0-15.5) Hematocrit 28.6 % (36.0-47.0) Mean Corpuscular Volume 91 fL (79-100) Mean Corpuscular Hemoglobin 30 pg (25-35) Mean Corpuscular Hemoglobin Concent 33 g/dL (31-37) Red Cell Distribution Width 13.2 % (11.5-14.5) Platelet Count 118 x10^3/uL (140-400) Neutrophils (%) (Auto) 70 % (31-73) Lymphocytes (%) (Auto) 22 % (24-48) Monocytes (%) (Auto) 7 % (0-9) Eosinophils (%) (Auto) 1 % (0-3) Basophils (%) (Auto) 1 % (0-3) Neutrophils # (Auto) 4.6 x10^3uL (1.8-7.7) Lymphocytes # (Auto) 1.5 x10^3/uL (1.0-4.8) Monocytes # (Auto) 0.4 x10^3/uL (0.0-1.1) Eosinophils # (Auto) 0.1 x10^3/uL (0.0-0.7) Basophils # (Auto) 0.0 x10^3/uL (0.0-0.2) Sodium Level 141 mmol/L (136-145) Potassium Level 3.8 mmol/L (3.5-5.1) Chloride Level 105 mmol/L (98-107) Carbon Dioxide Level 29 mmol/L (21-32) Anion Gap 7 (6-14) Blood Urea Nitrogen 17 mg/dL (7-20) Creatinine 0.7 mg/dL (0.6-1.0) Estimated GFR (Cockcroft-Gault) 82.7 Glucose Level 134 mg/dL (70-99) Calcium Level 8.2 mg/dL (8.5-10.1) Magnesium Level 2.1 mg/dL (1.8-2.4) Physical Exam HEENT: Neck Supple W Full Motion Chest: Symmetric LUNGS: Clear to Auscultation Heart: S1S2, RRR (SR), no thrills Abdomen: Soft N/T Extremities: No Calf Tenderness Neurology: alert, oriented, follow commands Assessment Assessment 1. Traumatic mechanical fall: S/P right hip ORIF POD#2, slow progress with rehab 2. AFIB RVR: converted to SR today. 3. Hypertension; controlled 4. Post op anemia: Hgb 13.9 preop to 9.5 post op 5. Moderate pulmonary HTN 6. Morbid obesity Recommendations 1. Responded well with amiodarone. Discussed with pt and wants to stay on amiodarone. 200 mg po daily. will check TSH 2. Continue eliquis and metoprolol. 3. May transfer to . 4. May need KIM workup as an outpt GENA KELLY MD 01/10/19 1732: CARDIO Progress Notes Assessment Assessment Patient seen and examined. Agree with EMISSION SPECIALIST's assessment and plan. Patient back in sinus rhythm today. Agree with amiodarone for rhythm maintenance. Continue eliquis for stroke prophylaxis. Continue postop care per orthopedics team. MARIA ELENA WEEKS APRN Jan 10, 2019 16:09 GENA KELLY MD Jan 10, 2019 17:32
[2019-01-10] MEDS: AMIODARONE HCL 200 MG TABLET. PO SCH (16:26)
[2019-01-10 19:29] VITALS: BP 107/55
[2019-01-10] MEDS: ALPRAZolam 0.5 MG TABLET PO PRN (21:09)
[2019-01-10 22:45] VITALS: BP 106/51
[2019-01-11 02:00] VITALS: BP 109/56
[2019-01-11] MEDS: HYDROcodone/APAP 7.5/325MG 1 TAB TABLET PO PRN ×4 (02:28→20:30)
[2019-01-11] MEDS: fentaNYL PF VIAL 100 MCG/2 ML VIAL IV PRN ×3 (04:13→22:15)
[2019-01-11 04:20] LABS: BASO % 1 % (0-3); EOS # 0.2 x10^3/uL (0.0-0.7); EOS % 3 % (0-3); HEMATOCRIT 28.1 % (36.0-47.0); HEMOGLOBIN 9.3 g/dL (12.0-15.5); LYMPH # 1.5 x10^3/uL (1.0-4.8); LYMPH % 20 % (24-48); MEAN CORPUSCULAR HEMOGLOBIN 30 pg (25-35); MEAN CORPUSCULAR HGB CONC 33 g/dL (31-37); MEAN CORPUSCULAR VOLUME 91 fL (79-100); MONO # 0.4 x10^3/uL (0.0-1.1); MONO % 6 % (0-9); NEUT # 5.5 x10^3uL (1.8-7.7); NEUT % 72 % (31-73); PLATELET COUNT 147 x10^3/uL (140-400); RED BLOOD COUNT 3.09 x10^6/uL (3.50-5.40); RED CELL DISTRIBUTION WIDTH 13.3 % (11.5-14.5); WHITE BLOOD COUNT 7.7 x10^3/uL (4.0-11.0)
[2019-01-11 04:39] LABS: CALCIUM 8.5 mg/dL (8.5-10.1); CREATININE 0.6 mg/dL (0.6-1.0); GFR 98.8; POTASSIUM 4.2 mmol/L (3.5-5.1)
[2019-01-11 07:00] VITALS: BP 104/56
[2019-01-11] MEDS: APIXABAN 5 MG TABLET. PO SCH ×2 (08:29→20:29)
[2019-01-11] MEDS: SENNOSIDES/DOCUSATE 8.6/50MG TABLET. PO SCH (08:29)
[2019-01-11] MEDS: CHOLECALCIFEROL (VITAMIN D3) 1,000 UNIT TABLET PO SCH (08:29)
[2019-01-11] MEDS: AMIODARONE HCL 200 MG TABLET. PO SCH (08:30)
[2019-01-11] MEDS: PANTOPRAZOLE 40 MG TABLET.DR. PO SCH (08:30)
[2019-01-11] MEDS: METOPROLOL TART IMMED RELEASE 25 MG TABLET. PO SCH ×2 (08:30→20:30)
[2019-01-11] MEDS ORDERED: AMIODARONE HCL 200 MG TABLET. PO SCH (09:00)
--- NOTE | 2019-01-11 09:56 | PDOC ---
PROGRESS NOTES Chief Complaint Chief Complaint CC: Fall, s/p right hip ORIF 01/08 AFIB with RVR HTN Anemia, post op Anxiety History of Present Illness History of Present Illness Pt is a pleasant 68 y/o female who was admitted due to hip fracture after a fall. She is s/p right hip ORIF on 01/08. Today she was seen and examined in her room. She was converted to PO amino 200 mg qd. She is feeling better. She has no new complaints. I discussed the PT with her RN. Therapy recommends discharge but the patient wants to go home with home health. Will plan on D/C today to home with home health. Vitals Vitals Vital Signs Date Time Temp Pulse Resp B/P (MAP) Pulse Ox O2 Delivery O2 Flow Rate FiO2 01/11/19 08:31 16 97 Nasal Cannula 2.0 01/11/19 08:30 64 104/56 01/11/19 07:00 98.0 98.0 Physical Exam General: Alert, Oriented X3, Cooperative, mild distress Heart: Regular rate, Normal S1, Normal S2 Lungs: Clear Abdomen: Normal bowel sounds, Soft Extremities: No clubbing, No cyanosis, Other (Dressing clean, dry and intact. SCDs. 2 peripheral IVs on left arm) Skin: No breakdown Labs LABS Laboratory Tests Test 01/11/19 04:10 White Blood Count 7.7 x10^3/uL (4.0-11.0) Red Blood Count 3.09 x10^6/uL (3.50-5.40) Hemoglobin 9.3 g/dL (12.0-15.5) Hematocrit 28.1 % (36.0-47.0) Mean Corpuscular Volume 91 fL (79-100) Mean Corpuscular Hemoglobin 30 pg (25-35) Mean Corpuscular Hemoglobin Concent 33 g/dL (31-37) Red Cell Distribution Width 13.3 % (11.5-14.5) Platelet Count 147 x10^3/uL (140-400) Neutrophils (%) (Auto) 72 % (31-73) Lymphocytes (%) (Auto) 20 % (24-48) Monocytes (%) (Auto) 6 % (0-9) Eosinophils (%) (Auto) 3 % (0-3) Basophils (%) (Auto) 1 % (0-3) Neutrophils # (Auto) 5.5 x10^3uL (1.8-7.7) Lymphocytes # (Auto) 1.5 x10^3/uL (1.0-4.8) Monocytes # (Auto) 0.4 x10^3/uL (0.0-1.1) Eosinophils # (Auto) 0.2 x10^3/uL (0.0-0.7) Basophils # (Auto) 0.0 x10^3/uL (0.0-0.2) Sodium Level 141 mmol/L (136-145) Potassium Level 4.2 mmol/L (3.5-5.1) Chloride Level 103 mmol/L (98-107) Carbon Dioxide Level 32 mmol/L (21-32) Anion Gap 6 (6-14) Blood Urea Nitrogen 13 mg/dL (7-20) Creatinine 0.6 mg/dL (0.6-1.0) Estimated GFR (Cockcroft-Gault) 98.8 Glucose Level 113 mg/dL (70-99) Calcium Level 8.5 mg/dL (8.5-10.1) Review of Systems Review of Systems Gen: denies fever or chills Heart: denies CP, palpitation Lung: denies cough, SOA Abd: denies pain, diarrhea Ext: rt hip pain - controlled Assessment and Plan Assessmemt and Plan Assessment: Fall, s/p right hip ORIF POD3 AFIB with RVR HTN Anemia, post op Anxiety Plan: PO amiodarone 200 mg qd Eliquis, metoprolol per cardiology Wound care PT/OT PRN narcotics Monitor labs Appreciate subspecialist input Probable D/C today to home with home health, if okay by cardiology Comment Review of Relevant I have reviewed the following items marly (where applicable) has been applied. Labs Laboratory Tests Test 01/10/19 04:20 01/11/19 04:10 White Blood Count 6.6 x10^3/uL (4.0-11.0) 7.7 x10^3/uL (4.0-11.0) Red Blood Count 3.16 x10^6/uL (3.50-5.40) 3.09 x10^6/uL (3.50-5.40) Hemoglobin 9.5 g/dL (12.0-15.5) 9.3 g/dL (12.0-15.5) Hematocrit 28.6 % (36.0-47.0) 28.1 % (36.0-47.0) Mean Corpuscular Volume 91 fL (79-100) 91 fL (79-100) Mean Corpuscular Hemoglobin 30 pg (25-35) 30 pg (25-35) Mean Corpuscular Hemoglobin Concent 33 g/dL (31-37) 33 g/dL (31-37) Red Cell Distribution Width 13.2 % (11.5-14.5) 13.3 % (11.5-14.5) Platelet Count 118 x10^3/uL (140-400) 147 x10^3/uL (140-400) Neutrophils (%) (Auto) 70 % (31-73) 72 % (31-73) Lymphocytes (%) (Auto) 22 % (24-48) 20 % (24-48) Monocytes (%) (Auto) 7 % (0-9) 6 % (0-9) Eosinophils (%) (Auto) 1 % (0-3) 3 % (0-3) Basophils (%) (Auto) 1 % (0-3) 1 % (0-3) Neutrophils # (Auto) 4.6 x10^3uL (1.8-7.7) 5.5 x10^3uL (1.8-7.7) Lymphocytes # (Auto) 1.5 x10^3/uL (1.0-4.8) 1.5 x10^3/uL (1.0-4.8) Monocytes # (Auto) 0.4 x10^3/uL (0.0-1.1) 0.4 x10^3/uL (0.0-1.1) Eosinophils # (Auto) 0.1 x10^3/uL (0.0-0.7) 0.2 x10^3/uL (0.0-0.7) Basophils # (Auto) 0.0 x10^3/uL (0.0-0.2) 0.0 x10^3/uL (0.0-0.2) Sodium Level 141 mmol/L (136-145) 141 mmol/L (136-145) Potassium Level 3.8 mmol/L (3.5-5.1) 4.2 mmol/L (3.5-5.1) Chloride Level 105 mmol/L (98-107) 103 mmol/L (98-107) Carbon Dioxide Level 29 mmol/L (21-32) 32 mmol/L (21-32) Anion Gap 7 (6-14) 6 (6-14) Blood Urea Nitrogen 17 mg/dL (7-20) 13 mg/dL (7-20) Creatinine 0.7 mg/dL (0.6-1.0) 0.6 mg/dL (0.6-1.0) Estimated GFR (Cockcroft-Gault) 82.7 98.8 Glucose Level 134 mg/dL (70-99) 113 mg/dL (70-99) Calcium Level 8.2 mg/dL (8.5-10.1) 8.5 mg/dL (8.5-10.1) Magnesium Level 2.1 mg/dL (1.8-2.4) Thyroid Stimulating Hormone (TSH) 2.996 uIU/mL (0.358-3.74) Laboratory Tests Test 01/11/19 04:10 White Blood Count 7.7 x10^3/uL (4.0-11.0) Red Blood Count 3.09 x10^6/uL (3.50-5.40) Hemoglobin 9.3 g/dL (12.0-15.5) Hematocrit 28.1 % (36.0-47.0) Mean Corpuscular Volume 91 fL (79-100) Mean Corpuscular Hemoglobin 30 pg (25-35) Mean Corpuscular Hemoglobin Concent 33 g/dL (31-37) Red Cell Distribution Width 13.3 % (11.5-14.5) Platelet Count 147 x10^3/uL (140-400) Neutrophils (%) (Auto) 72 % (31-73) Lymphocytes (%) (Auto) 20 % (24-48) Monocytes (%) (Auto) 6 % (0-9) Eosinophils (%) (Auto) 3 % (0-3) Basophils (%) (Auto) 1 % (0-3) Neutrophils # (Auto) 5.5 x10^3uL (1.8-7.7) Lymphocytes # (Auto) 1.5 x10^3/uL (1.0-4.8) Monocytes # (Auto) 0.4 x10^3/uL (0.0-1.1) Eosinophils # (Auto) 0.2 x10^3/uL (0.0-0.7) Basophils # (Auto) 0.0 x10^3/uL (0.0-0.2) Sodium Level 141 mmol/L (136-145) Potassium Level 4.2 mmol/L (3.5-5.1) Chloride Level 103 mmol/L (98-107) Carbon Dioxide Level 32 mmol/L (21-32) Anion Gap 6 (6-14) Blood Urea Nitrogen 13 mg/dL (7-20) Creatinine 0.6 mg/dL (0.6-1.0) Estimated GFR (Cockcroft-Gault) 98.8 Glucose Level 113 mg/dL (70-99) Calcium Level 8.5 mg/dL (8.5-10.1) Medications Current Medications Ondansetron HCl (Zofran) 4 mg STK-MED ONCE .ROUTE ; Start 01/08/19 at 03:23; Stop 01/08/19 at 03:26; Status DC Ondansetron HCl (Zofran) 4 mg 1X ONCE IV Last administered on 01/08/19at 03:25 ; Start 01/08/19 at 04:00; Stop 01/08/19 at 04:01; Status DC Metoclopramide HCl (Reglan Vial) 10 mg 1X ONCE IV Last administered on at 04:28; Start 01/08/19 at 04:15; Stop 01/08/19 at 04:16; Status DC Morphine Sulfate (Morphine Sulfate) 4 mg 1X ONCE IV Last administered on at 04:29; Start 01/08/19 at 04:15; Stop 01/08/19 at 04:16; Status DC Ondansetron HCl (Zofran) 4 mg PRN Q8HRS PRN IV NAUSEA/VOMITING; Start 01/08/19 at 04:15; Stop 01/09/19 at 04:14; Status DC Morphine Sulfate (Morphine Sulfate) 4 mg PRN Q2HR PRN IV PAIN Last administered on 01/09/19at 04:07; Start 01/08/19 at 04:15; Stop 01/09/19 at 04:14 ; Status DC Acetaminophen (Tylenol) 650 mg PRN Q4HRS PRN PO FEVER; Start 01/08/19 at 04:15 ; Stop 01/09/19 at 04:14; Status DC Propofol 20 ml @ As Directed STK-MED ONCE IV ; Start 01/08/19 at 09:17; Stop 10/16 at 09:20; Status DC Dexamethasone Sodium Phosphate (Decadron) 20 mg STK-MED ONCE .ROUTE ; Start 10/16 at 09:17; Stop 01/08/19 at 09:20; Status DC Famotidine (Pepcid Vial) 20 mg STK-MED ONCE .ROUTE ; Start 01/08/19 at 09:17; Stop 01/08/19 at 09:20; Status DC Lidocaine HCl (Lidocaine Pf 2% Vial) 5 ml STK-MED ONCE .ROUTE ; Start 01/08/19 at 09:17; Stop 01/08/19 at 09:20; Status DC Ondansetron HCl (Zofran) 4 mg STK-MED ONCE .ROUTE ; Start 01/08/19 at 09:17; Stop 01/08/19 at 09:20; Status DC Rocuronium [place] (Zemuron) 50 mg STK-MED ONCE .ROUTE ; Start 01/08/19 at 09:18 ; Stop 01/08/19 at 09:21; Status DC Fentanyl Citrate (Fentanyl 2ml Vial) 100 mcg STK-MED ONCE .ROUTE ; Start at 09:18; Stop 01/08/19 at 09:21; Status DC Midazolam HCl (Versed) 2 mg STK-MED ONCE .ROUTE ; Start 01/08/19 at 09:18; Stop 01/08/19 at 09:21; Status DC Metoprolol Tartrate (Lopressor) 25 mg BID PRN PO HYPERTENSION, SEE COMMENTS; Start 01/08/19 at 11:15; Stop 01/09/19 at 17:20; Status DC Vitamin D (Vitamin D3) 1,000 unit DAILY PO Last administered on 01/11/19at 08:29 ; Start 01/08/19 at 11:00 Pantoprazole Sodium (Protonix) 40 mg DAILYAC PO Last administered on 01/11/19at 08:30; Start 01/08/19 at 11:30 Propafenone HCl (Rythmol) 150 mg BID PO Last administered on 01/09/19at 08:32; Start 01/08/19 at 11:00; Stop 01/09/19 at 17:14; Status DC Ondansetron HCl (Zofran) 4 mg PRN Q6HRS PRN IV NAUSEA/VOMITING; Start 01/08/19 at 12:00; Stop 01/09/19 at 11:59; Status DC Fentanyl Citrate (Fentanyl 2ml Vial) 25 mcg PRN Q5MIN PRN IV MILD PAIN Last administered on 01/08/19at 15:12; Start 01/08/19 at 12:00; Stop 01/09/19 at 11:59 ; Status DC Fentanyl Citrate (Fentanyl 2ml Vial) 50 mcg PRN Q5MIN PRN IV MODERATE TO SEVERE PAIN; Start 01/08/19 at 12:00; Stop 01/09/19 at 11:59; Status DC Morphine Sulfate (Morphine Sulfate) 4 mg PRN Q10MIN PRN IV PAIN; Start at 12:00; Stop 01/10/19 at 07:25; Status DC Ringer's Solution 1,000 ml @ 30 mls/hr Q24H IV Last administered on 01/08/19at 11:53; Start 01/08/19 at 11:46; Stop 01/09/19 at 01:28; Status DC Lidocaine HCl (Xylocaine-Mpf 1% 2ml Vial) 2 ml 1X PRN PRN ID IV START; Start at 12:00; Stop 01/09/19 at 11:59; Status DC Hydromorphone HCl (Dilaudid) 0.5 mg PRN Q10MIN PRN IV SEV PAIN, Second choice; Start 01/08/19 at 12:00; Stop 01/09/19 at 11:59; Status DC Prochlorperazine Edisylate (Compazine) 5 mg PACU PRN PRN IV NAUSEA, MRX1 Last administered on 01/08/19at 15:11; Start 01/08/19 at 12:00; Stop 01/09/19 at 11:59 ; Status DC Cefazolin Sodium/ Dextrose 50 ml @ 100 mls/hr 1X ONCE IV Last administered on 01/08/19at 12:18; Start 01/08/19 at 12:15; Stop 01/08/19 at 12:44; Status DC Cefazolin Sodium/ Dextrose 50 ml @ As Directed STK-MED ONCE IV ; Start 01/08/19 at 12:07; Stop 01/08/19 at 12:09; Status DC Ketamine HCl (Ketamine) 50 mg STK-MED ONCE .ROUTE ; Start 01/08/19 at 12:53; Stop 01/08/19 at 12:55; Status DC Neostigmine Methylsulfate (Bloxiverz) 10 mg STK-MED ONCE .ROUTE ; Start at 13:23; Stop 01/08/19 at 13:25; Status DC Glycopyrrolate (Robinul) 1 mg STK-MED ONCE .ROUTE ; Start 01/08/19 at 13:23; Stop 01/08/19 at 13:25; Status DC Fentanyl Citrate (Fentanyl 2ml Vial) 100 mcg STK-MED ONCE .ROUTE ; Start at 14:31; Stop 01/08/19 at 14:33; Status DC Prochlorperazine Edisylate (Compazine) 10 mg STK-MED ONCE .ROUTE ; Start at 14:31; Stop 01/08/19 at 14:33; Status DC Senna/Docusate Sodium (Senna Plus) 1 tab DAILY PO Last administered on at 08:29; Start 01/09/19 at 09:00 Polyethylene Glycol (miraLAX PACKET) 17 gm PRN DAILY PRN PO CONSTIPATION; Start 01/08/19 at 19:00 Ondansetron HCl (Zofran) 4 mg PRN Q4HRS PRN IV NAUSEA/VOMITING Last administered on 01/10/19at 20:38; Start 01/08/19 at 19:00 Magnesium Hydroxide (Milk Of Magnesia) 2,400 mg 1X PRN PRN PO CONSTIPATION; Start 01/09/19 at 06:00; Stop 01/10/19 at 05:59; Status DC Bisacodyl (Dulcolax Supp) 10 mg 1X PRN PRN [place] CONSTIPATION; Start 01/09/19 at 16:00; Stop 01/10/19 at 15:59; Status DC Dextrose (Dextrose 50%-Water Syringe) 12.5 gm PRN Q15MIN PRN IV SEE COMMENTS; Start 01/08/19 at 19:00 Cefazolin Sodium/ Dextrose 50 ml @ 100 mls/hr Q6H IV Last administered on 01/09 08:33; Start 01/08/19 at 20:00; Stop 01/09/19 at 08:29; Status DC Alprazolam (Xanax) 0.5 mg PRN Q6HRS PRN PO ANXIETY / AGITATION Last administered on 01/10/19 21:09; Start 01/08/19 at 19:30 Digoxin (Lanoxin) 500 mcg 1X ONCE IV Last administered on 01/09/19 09:14; Start 01/09/19 at 09:00; Stop 01/09/19 at 09:01; Status DC Metoprolol Tartrate (Lopressor Vial) 5 mg 1X ONCE IVP Last administered on 10:46; Start 01/09/19 at 10:45; Stop 01/09/19 at 10:46; Status DC Sodium Chloride 1,000 ml @ 100 mls/hr 1X ONCE IV Last administered on 12:46; Start 01/09/19 at 12:45; Stop 01/09/19 at 22:44; Status DC Digoxin (Lanoxin) 250 mcg 1X ONCE IV Last administered on 01/09/19 14:50; Start 01/09/19 at 15:00; Stop 01/09/19 at 15:01; Status DC Magnesium Sulfate 50 ml @ 25 mls/hr 1X ONCE IV Last administered on 01/09/19 14:49; Start 01/09/19 at 15:00; Stop 01/09/19 at 16:59; Status DC Fentanyl Citrate (Fentanyl 2ml Vial) 50 mcg PRN Q3HRS PRN IV PAIN Last administered on 01/11/19 04:13; Start 01/09/19 at 15:15 Acetaminophen/ Hydrocodone Bitart (Lortab 7.5/325) 1 tab PRN Q4HRS PRN PO PAIN Last administered on 01/11/19 08:31; Start 01/09/19 at 15:15 Apixaban (Eliquis) 5 mg BID PO Last administered on 01/11/19 08:29; Start 11/15 at 21:00 Amiodarone HCl 150 mg/Dextrose 103 ml @ 600 mls/hr 1X ONCE IV Last administered on 01/09/19at 17:32; Start 01/09/19 at 17:15; Stop 01/10/19 at 16:10 ; Status DC Amiodarone HCl 900 mg/Dextrose 518 ml @ 0 mls/hr CONT PRN IV SEE I/O RECORD Last administered on 01/09/19at 17:33; Start 01/09/19 at 17:15; Stop 01/10/19 at 16:10; Status DC Metoprolol Tartrate (Lopressor) 25 mg BID PO Last administered on 01/11/19at 08: 30; Start 01/09/19 at 21:00 Sodium Chloride 1,000 ml @ 75 mls/hr 1X ONCE IV Last administered on at 00:45; Start 01/10/19 at 01:00; Stop 01/10/19 at 14:19; Status DC Info (Anti-Coagulation Monitoring By Pharmacy) 1 each PRN DAILY PRN MC SEE COMMENTS Last administered on 01/10/19at 14:17; Start 01/10/19 at 14:15 Amiodarone HCl (Cordarone) 200 mg DAILY PO ; Start 01/11/19 at 09:00; Stop 01/11 at 09:00; Status DC Amiodarone HCl (Cordarone) 200 mg DAILY PO Last administered on 01/11/19at 08:30 ; Start 01/10/19 at 16:15 Active Scripts Active Reported Vitamin D (Cholecalciferol (Vitamin D3)) 1,000 Unit Capsule 1 Cap PO DAILY PRN Omeprazole 20 Mg Capsule.dr 1 Cap PO DAILY PRN Eliquis (Apixaban) 5 Mg Tablet 5 Mg PO BID Metoprolol Tartrate 25 Mg Tablet 1 Tab PO BID PRN Propafenone Hcl 150 Mg Tablet 150 Mg PO BID Vitals/I & O Vital Sign - Last 24 Hours 01/10/19 01/10/19 01/10/19 01/10/19 10:01 10:08 11:00 13:51 Temp 98.4 98.4 Pulse 77 72 Resp 16 18 16 B/P (MAP) 107/59 120/58 (78) Pulse Ox 99 O2 Delivery Nasal Cannula Nasal Cannula Nasal Cannula O2 Flow Rate 2.0 2.0 2.0 01/10/19 01/10/19 01/10/19 01/10/19 14:51 15:00 15:51 16:26 Temp 98.1 98.1 Pulse 78 78 Resp 16 18 16 B/P (MAP) 111/60 (77) 111/60 Pulse Ox 96 O2 Delivery Nasal Cannula Nasal Cannula O2 Flow Rate 2.0 2.0 01/10/19 01/10/19 01/10/19 01/10/19 16:27 19:29 20:00 21:09 Temp 98.2 98.2 Pulse 66 66 Resp 16 16 B/P (MAP) 107/55 (72) 107/55 Pulse Ox 98 O2 Delivery Nasal Cannula Nasal Cannula O2 Flow Rate 2.0 2.0 01/10/19 01/10/19 01/11/19 01/11/19 21:10 22:45 02:00 02:28 Temp 97.4 98.2 97.4 98.2 Pulse 67 62 Resp 16 16 B/P (MAP) 106/51 (69) 109/56 (73) Pulse Ox 98 97 100 97 O2 Delivery Nasal Cannula Nasal Cannula Nasal Cannula Nasal Cannula O2 Flow Rate 2.0 2.0 2.0 2.0 01/11/19 01/11/19 01/11/19 01/11/19 03:28 04:13 04:43 07:00 Temp 98.0 98.0 Pulse 64 Resp 18 B/P (MAP) 104/56 (72) Pulse Ox 97 97 97 97 O2 Delivery Nasal Cannula Nasal Cannula Nasal Cannula Nasal Cannula O2 Flow Rate 2.0 2.0 2.0 2.0 01/11/19 01/11/19 01/11/19 08:30 08:30 08:31 Pulse 64 64 Resp 16 B/P (MAP) 104/56 104/56 Pulse Ox 97 O2 Delivery Nasal Cannula O2 Flow Rate 2.0 Intake and Output 01/10/19 01/10/19 01/11/19 15:00 23:00 07:00 Intake Total 220 ml 320 ml Output Total 450 ml 800 ml Balance 220 ml -450 ml -480 ml CASTLE,NIAL K III DO Jan 11, 2019 09:56
[2019-01-11 11:00] VITALS: BP 112/54
--- NOTE | 2019-01-11 11:44 | DISCH ---
DISCHARGE DISCHARGE INFORMATION: CONDITION ON DISCHARGE: Stable CODE STATUS: Code Status: Full [facility] F[facility]ILITY: SNF STAY <30 DAYS: Yes HOSPICE: HOSPICE: No HOSPICE EVAL & TREAT: No LTAC: ADMIT TO LTAC: No POST DISCHARGE ORDERS: ACTIVITY ORDERS: Bedrest today DIET AFTER DISCHARGE: Cardiac TREATMENT/EQUIPMENT ORDERS: Physical Therapy For: Evalulation/Treatment Occupational Therapy For: Evaluation/Treatment DISCHARGE MEDICATIONS: Home Meds Reported Medications Cholecalciferol (Vitamin D3) (VITAMIN D) 1,000 Unit Capsule, 1 CAP PO DAILY PRN for NUTRITION, #30 CAP 3 Refills 01/08/19 Omeprazole (OMEPRAZOLE) 20 Mg Capsule.dr, 1 CAP PO DAILY PRN for STOMACH ULCERS , #30 CAP 5 Refills 01/08/19 Apixaban (ELIQUIS) 5 Mg Tablet, 5 MG PO BID for afib, TAB 01/08/19 Metoprolol Tartrate (METOPROLOL TARTRATE) 25 Mg Tablet, 1 TAB PO BID PRN for HYPERTENSION, SEE COMMENTS, #180 TAB 1 Refill 01/08/19 Propafenone Hcl (PROPAFENONE HCL) 150 Mg Tablet, 150 MG PO BID for CARDIAC ARRHYTHMIAS, TAB 01/08/19 OLMAN HAMMONDS III DO Jan 11, 2019 11:44
--- NOTE | 2019-01-11 11:45 | DISCH ---
DISCHARGE WITH HOME HEALTH DISCHARGE INFORMATION: Condition on Discharge: Stable CODE STATUS: Code Status: Full HOME HEALTH: Face to Face: I certify this patient is under my care and that I, or a nurse practitioner or physician's doctor assistant working with me, had a face to face encounter that meets the physician face to face encounter requirements with this patient on []. Medical Complications: DJD, Falls Physical Therapy For: Evalulation/Treatment Occupational Therapy For: Evaluation/Treatment Home Health Aide For: Self-care MECHANICAL ASSEMBLER For: Community Resources Pt Meets Homebound Status: Unsteady balance w/ amb, POST DISCHARGE ORDERS: Activity Instructions for Disc: Bedrest today DIET AFTER DISCHARGE: Cardiac CERTIFICATION STATEMENT: Certification Statement: Certification Statement: Based on the above finding, I certify that this patient is confined to the home and needs intermittent residential care, physical therapy and/or speech therapy, or continues to need occupational therapy.~ This patient is under my care, and I have initiated the establishment of the plan of care.~ This patient will be followed by myself or a community physician who will periodically review the plan of care. Home Meds Reported Medications Cholecalciferol (Vitamin D3) (VITAMIN D) 1,000 Unit Capsule, 1 CAP PO DAILY PRN for NUTRITION, #30 CAP 3 Refills 01/08/19 Omeprazole (OMEPRAZOLE) 20 Mg Capsule.dr, 1 CAP PO DAILY PRN for STOMACH ULCERS , #30 CAP 5 Refills 01/08/19 Apixaban (ELIQUIS) 5 Mg Tablet, 5 MG PO BID for afib, TAB 01/08/19 Metoprolol Tartrate (METOPROLOL TARTRATE) 25 Mg Tablet, 1 TAB PO BID PRN for HYPERTENSION, SEE COMMENTS, #180 TAB 1 Refill 01/08/19 Propafenone Hcl (PROPAFENONE HCL) 150 Mg Tablet, 150 MG PO BID for CARDIAC ARRHYTHMIAS, TAB 01/08/19 OLMAN HAMMONDS III DO Jan 11, 2019 11:45
--- NOTE | 2019-01-11 12:29 | DS ---
DATE OF DISCHARGE: 01/11/2019 ADMISSION DIAGNOSES: Fall with right hip fracture and atrial fibrillation. DISCHARGE DIAGNOSES: 1. Postop day #3 open reduction and internal fixation. 2. Atrial fibrillation. CONSULTS: Dr. Anderson, Orthopedics and Dr. Guzman, Cardiology. PROCEDURES: ORIF of the right hip. HOSPITAL COURSE: The patient is a pleasant elderly female who tripped and fell and suffered a hip fracture. She was brought to the ER, was noted to be in AFib as well. She does have a previous history of AFib and was on Eliquis to home as well. The patient postoperatively did well after her ORIF. She has been somewhat weak. I saw and examined her today on telemetry. She is clinically doing well. She is on little oxygen, but states she has not "got out of bed yet," although nurse explains that she is refusing physical therapy. We offered half-way. She apparently is trying to refuse that as well, but I explained to her that we had to get her up moving. I went ahead and put discharge orders and if okay with Physical Therapy to get her to half-way. If not, we will have to get her to home with home health. DISPOSITION: Skilled versus home with home health. ACTIVITY: As tolerated. DIET: Low sodium. MEDICATIONS: Please see the MRAD. TOTAL TIME: 38 minutes. OLMAN HAMMONDS DO DR: NANI/dennis JOB#: [id number] / [id number]
[2019-01-11 15:00] VITALS: BP 113/59
[2019-01-11] MEDS: ALPRAZolam 0.5 MG TABLET PO PRN (16:08)
[2019-01-11 19:51] VITALS: BP 114/57
[2019-01-11 23:39] VITALS: BP 114/68
[2019-01-12] MEDS: ALPRAZolam 0.5 MG TABLET PO PRN ×2 (01:08→09:01)
[2019-01-12 03:38] VITALS: BP 103/61
[2019-01-12 04:19] LABS: BASO % 0 % (0-3); EOS # 0.2 x10^3/uL (0.0-0.7); EOS % 4 % (0-3); HEMATOCRIT 25.7 % (36.0-47.0); HEMOGLOBIN 8.8 g/dL (12.0-15.5); LYMPH # 1.4 x10^3/uL (1.0-4.8); LYMPH % 25 % (24-48); MEAN CORPUSCULAR HEMOGLOBIN 31 pg (25-35); MEAN CORPUSCULAR HGB CONC 34 g/dL (31-37); MEAN CORPUSCULAR VOLUME 90 fL (79-100); MONO # 0.4 x10^3/uL (0.0-1.1); MONO % 7 % (0-9); NEUT # 3.7 x10^3uL (1.8-7.7); NEUT % 65 % (31-73); PLATELET COUNT 150 x10^3/uL (140-400); RED BLOOD COUNT 2.86 x10^6/uL (3.50-5.40); WHITE BLOOD COUNT 5.7 x10^3/uL (4.0-11.0)
[2019-01-12 04:28] LABS: CALCIUM 8.3 mg/dL (8.5-10.1); CREATININE 0.7 mg/dL (0.6-1.0); GFR 82.7
[2019-01-12] MEDS: fentaNYL PF VIAL 100 MCG/2 ML VIAL IV PRN (04:57)
[2019-01-12 07:17] VITALS: BP 105/52
[2019-01-12] MEDS: CHOLECALCIFEROL (VITAMIN D3) 1,000 UNIT TABLET PO SCH (08:59)
[2019-01-12] MEDS: PANTOPRAZOLE 40 MG TABLET.DR. PO SCH (08:59)
[2019-01-12] MEDS: METOPROLOL TART IMMED RELEASE 25 MG TABLET. PO SCH (08:59)
[2019-01-12] MEDS: APIXABAN 5 MG TABLET. PO SCH (08:59)
[2019-01-12] MEDS: SENNOSIDES/DOCUSATE 8.6/50MG TABLET. PO SCH (08:59)
[2019-01-12] MEDS: AMIODARONE HCL 200 MG TABLET. PO SCH (08:59)
[2019-01-12] MEDS: HYDROcodone/APAP 7.5/325MG 1 TAB TABLET PO PRN (11:09)
[2019-01-12 11:22] VITALS: BP 102/44
--- NOTE | 2019-01-12 11:52 | PDOC ---
PROGRESS NOTES Chief Complaint Chief Complaint CC: Fall, s/p right hip ORIF 01/08 AFIB with RVR HTN Anemia, post op Anxiety History of Present Illness History of Present Illness Pt is a pleasant 68 y/o female who was admitted due to hip fracture after a fall. She is s/p right hip ORIF on 01/08. Today she was seen and examined in her room. She was resting and in NAD. Her was in the room. Today she states should would like to go to rehab instead of home because she is weak. She does not have anyone to help her at home. She has no new complaints today. She is ready to leave. Discussed pt with her RN. Vitals Vitals Vital Signs Date Time Temp Pulse Resp B/P (MAP) Pulse Ox O2 Delivery O2 Flow Rate FiO2 01/12/19 11:22 97.5 71 18 102/44 (63) 91 Nasal Cannula 2.0 97.5 Physical Exam General: Alert, Oriented X3, Cooperative, mild distress Heart: Regular rate, Normal S1, Normal S2 Lungs: Clear Abdomen: Normal bowel sounds, Soft Extremities: No clubbing, No cyanosis, Other (Dressing clean, dry and intact. SCDs. 2 peripheral IVs on left arm) Skin: No breakdown Labs LABS Laboratory Tests Test 01/12/19 04:00 White Blood Count 5.7 x10^3/uL (4.0-11.0) Red Blood Count 2.86 x10^6/uL (3.50-5.40) Hemoglobin 8.8 g/dL (12.0-15.5) Hematocrit 25.7 % (36.0-47.0) Mean Corpuscular Volume 90 fL (79-100) Mean Corpuscular Hemoglobin 31 pg (25-35) Mean Corpuscular Hemoglobin Concent 34 g/dL (31-37) Red Cell Distribution Width 13.0 % (11.5-14.5) Platelet Count 150 x10^3/uL (140-400) Neutrophils (%) (Auto) 65 % (31-73) Lymphocytes (%) (Auto) 25 % (24-48) Monocytes (%) (Auto) 7 % (0-9) Eosinophils (%) (Auto) 4 % (0-3) Basophils (%) (Auto) 0 % (0-3) Neutrophils # (Auto) 3.7 x10^3uL (1.8-7.7) Lymphocytes # (Auto) 1.4 x10^3/uL (1.0-4.8) Monocytes # (Auto) 0.4 x10^3/uL (0.0-1.1) Eosinophils # (Auto) 0.2 x10^3/uL (0.0-0.7) Basophils # (Auto) 0.0 x10^3/uL (0.0-0.2) Sodium Level 141 mmol/L (136-145) Potassium Level 4.0 mmol/L (3.5-5.1) Chloride Level 102 mmol/L (98-107) Carbon Dioxide Level 32 mmol/L (21-32) Anion Gap 7 (6-14) Blood Urea Nitrogen 14 mg/dL (7-20) Creatinine 0.7 mg/dL (0.6-1.0) Estimated GFR (Cockcroft-Gault) 82.7 Glucose Level 106 mg/dL (70-99) Calcium Level 8.3 mg/dL (8.5-10.1) Review of Systems Review of Systems Gen: denies fever or chills Heart: denies CP, palpitation Lung: denies cough, SOA Abd: denies pain, diarrhea Ext: rt hip pain - controlled Assessment and Plan Assessmemt and Plan Assessment: Fall, s/p right hip ORIF POD3 AFIB with RVR HTN Anemia, post op Anxiety Plan: PO amiodarone 200 mg qd Eliquis, metoprolol per cardiology Wound care PT/OT PRN narcotics Monitor labs Appreciate subspecialist input Probable D/C today to [facility], if okay by cardiology Comment Review of Relevant I have reviewed the following items marly (where applicable) has been applied. Labs Laboratory Tests Test 01/11/19 04:10 01/12/19 04:00 White Blood Count 7.7 x10^3/uL (4.0-11.0) 5.7 x10^3/uL (4.0-11.0) Red Blood Count 3.09 x10^6/uL (3.50-5.40) 2.86 x10^6/uL (3.50-5.40) Hemoglobin 9.3 g/dL (12.0-15.5) 8.8 g/dL (12.0-15.5) Hematocrit 28.1 % (36.0-47.0) 25.7 % (36.0-47.0) Mean Corpuscular Volume 91 fL (79-100) 90 fL (79-100) Mean Corpuscular Hemoglobin 30 pg (25-35) 31 pg (25-35) Mean Corpuscular Hemoglobin Concent 33 g/dL (31-37) 34 g/dL (31-37) Red Cell Distribution Width 13.3 % (11.5-14.5) 13.0 % (11.5-14.5) Platelet Count 147 x10^3/uL (140-400) 150 x10^3/uL (140-400) Neutrophils (%) (Auto) 72 % (31-73) 65 % (31-73) Lymphocytes (%) (Auto) 20 % (24-48) 25 % (24-48) Monocytes (%) (Auto) 6 % (0-9) 7 % (0-9) Eosinophils (%) (Auto) 3 % (0-3) 4 % (0-3) Basophils (%) (Auto) 1 % (0-3) 0 % (0-3) Neutrophils # (Auto) 5.5 x10^3uL (1.8-7.7) 3.7 x10^3uL (1.8-7.7) Lymphocytes # (Auto) 1.5 x10^3/uL (1.0-4.8) 1.4 x10^3/uL (1.0-4.8) Monocytes # (Auto) 0.4 x10^3/uL (0.0-1.1) 0.4 x10^3/uL (0.0-1.1) Eosinophils # (Auto) 0.2 x10^3/uL (0.0-0.7) 0.2 x10^3/uL (0.0-0.7) Basophils # (Auto) 0.0 x10^3/uL (0.0-0.2) 0.0 x10^3/uL (0.0-0.2) Sodium Level 141 mmol/L (136-145) 141 mmol/L (136-145) Potassium Level 4.2 mmol/L (3.5-5.1) 4.0 mmol/L (3.5-5.1) Chloride Level 103 mmol/L (98-107) 102 mmol/L (98-107) Carbon Dioxide Level 32 mmol/L (21-32) 32 mmol/L (21-32) Anion Gap 6 (6-14) 7 (6-14) Blood Urea Nitrogen 13 mg/dL (7-20) 14 mg/dL (7-20) Creatinine 0.6 mg/dL (0.6-1.0) 0.7 mg/dL (0.6-1.0) Estimated GFR (Cockcroft-Gault) 98.8 82.7 Glucose Level 113 mg/dL (70-99) 106 mg/dL (70-99) Calcium Level 8.5 mg/dL (8.5-10.1) 8.3 mg/dL (8.5-10.1) Laboratory Tests Test 01/12/19 04:00 White Blood Count 5.7 x10^3/uL (4.0-11.0) Red Blood Count 2.86 x10^6/uL (3.50-5.40) Hemoglobin 8.8 g/dL (12.0-15.5) Hematocrit 25.7 % (36.0-47.0) Mean Corpuscular Volume 90 fL (79-100) Mean Corpuscular Hemoglobin 31 pg (25-35) Mean Corpuscular Hemoglobin Concent 34 g/dL (31-37) Red Cell Distribution Width 13.0 % (11.5-14.5) Platelet Count 150 x10^3/uL (140-400) Neutrophils (%) (Auto) 65 % (31-73) Lymphocytes (%) (Auto) 25 % (24-48) Monocytes (%) (Auto) 7 % (0-9) Eosinophils (%) (Auto) 4 % (0-3) Basophils (%) (Auto) 0 % (0-3) Neutrophils # (Auto) 3.7 x10^3uL (1.8-7.7) Lymphocytes # (Auto) 1.4 x10^3/uL (1.0-4.8) Monocytes # (Auto) 0.4 x10^3/uL (0.0-1.1) Eosinophils # (Auto) 0.2 x10^3/uL (0.0-0.7) Basophils # (Auto) 0.0 x10^3/uL (0.0-0.2) Sodium Level 141 mmol/L (136-145) Potassium Level 4.0 mmol/L (3.5-5.1) Chloride Level 102 mmol/L (98-107) Carbon Dioxide Level 32 mmol/L (21-32) Anion Gap 7 (6-14) Blood Urea Nitrogen 14 mg/dL (7-20) Creatinine 0.7 mg/dL (0.6-1.0) Estimated GFR (Cockcroft-Gault) 82.7 Glucose Level 106 mg/dL (70-99) Calcium Level 8.3 mg/dL (8.5-10.1) Medications Current Medications Ondansetron HCl (Zofran) 4 mg STK-MED ONCE .ROUTE ; Start 01/08/19 at 03:23; Stop 01/08/19 at 03:26; Status DC Ondansetron HCl (Zofran) 4 mg 1X ONCE IV Last administered on 01/08/19at 03:25 ; Start 01/08/19 at 04:00; Stop 01/08/19 at 04:01; Status DC Metoclopramide HCl (Reglan Vial) 10 mg 1X ONCE IV Last administered on at 04:28; Start 01/08/19 at 04:15; Stop 01/08/19 at 04:16; Status DC Morphine Sulfate (Morphine Sulfate) 4 mg 1X ONCE IV Last administered on at 04:29; Start 01/08/19 at 04:15; Stop 01/08/19 at 04:16; Status DC Ondansetron HCl (Zofran) 4 mg PRN Q8HRS PRN IV NAUSEA/VOMITING; Start 01/08/19 at 04:15; Stop 01/09/19 at 04:14; Status DC Morphine Sulfate (Morphine Sulfate) 4 mg PRN Q2HR PRN IV PAIN Last administered on 01/09/19at 04:07; Start 01/08/19 at 04:15; Stop 01/09/19 at 04:14 ; Status DC Acetaminophen (Tylenol) 650 mg PRN Q4HRS PRN PO FEVER; Start 01/08/19 at 04:15 ; Stop 01/09/19 at 04:14; Status DC Propofol 20 ml @ As Directed STK-MED ONCE IV ; Start 01/08/19 at 09:17; Stop 10/16 at 09:20; Status DC Dexamethasone Sodium Phosphate (Decadron) 20 mg STK-MED ONCE .ROUTE ; Start 10/16 at 09:17; Stop 01/08/19 at 09:20; Status DC Famotidine (Pepcid Vial) 20 mg STK-MED ONCE .ROUTE ; Start 01/08/19 at 09:17; Stop 01/08/19 at 09:20; Status DC Lidocaine HCl (Lidocaine Pf 2% Vial) 5 ml STK-MED ONCE .ROUTE ; Start 01/08/19 at 09:17; Stop 01/08/19 at 09:20; Status DC Ondansetron HCl (Zofran) 4 mg STK-MED ONCE .ROUTE ; Start 01/08/19 at 09:17; Stop 01/08/19 at 09:20; Status DC Rocuronium Minong (Zemuron) 50 mg STK-MED ONCE .ROUTE ; Start 01/08/19 at 09:18 ; Stop 01/08/19 at 09:21; Status DC Fentanyl Citrate (Fentanyl 2ml Vial) 100 mcg STK-MED ONCE .ROUTE ; Start at 09:18; Stop 01/08/19 at 09:21; Status DC Midazolam HCl (Versed) 2 mg STK-MED ONCE .ROUTE ; Start 01/08/19 at 09:18; Stop 01/08/19 at 09:21; Status DC Metoprolol Tartrate (Lopressor) 25 mg BID PRN PO HYPERTENSION, SEE COMMENTS; Start 01/08/19 at 11:15; Stop 01/09/19 at 17:20; Status DC Vitamin D (Vitamin D3) 1,000 unit DAILY PO Last administered on 01/12/19at 08:59 ; Start 01/08/19 at 11:00 Pantoprazole Sodium (Protonix) 40 mg DAILYAC PO Last administered on 01/12/19at 08:59; Start 01/08/19 at 11:30 Propafenone HCl (Rythmol) 150 mg BID PO Last administered on 01/09/19at 08:32; Start 01/08/19 at 11:00; Stop 01/09/19 at 17:14; Status DC Ondansetron HCl (Zofran) 4 mg PRN Q6HRS PRN IV NAUSEA/VOMITING; Start 01/08/19 at 12:00; Stop 01/09/19 at 11:59; Status DC Fentanyl Citrate (Fentanyl 2ml Vial) 25 mcg PRN Q5MIN PRN IV MILD PAIN Last administered on 01/08/19at 15:12; Start 01/08/19 at 12:00; Stop 01/09/19 at 11:59 ; Status DC Fentanyl Citrate (Fentanyl 2ml Vial) 50 mcg PRN Q5MIN PRN IV MODERATE TO SEVERE PAIN; Start 01/08/19 at 12:00; Stop 01/09/19 at 11:59; Status DC Morphine Sulfate (Morphine Sulfate) 4 mg PRN Q10MIN PRN IV PAIN; Start at 12:00; Stop 01/10/19 at 07:25; Status DC Ringer's Solution 1,000 ml @ 30 mls/hr Q24H IV Last administered on 01/08/19at 11:53; Start 01/08/19 at 11:46; Stop 01/09/19 at 01:28; Status DC Lidocaine HCl (Xylocaine-Mpf 1% 2ml Vial) 2 ml 1X PRN PRN ID IV START; Start at 12:00; Stop 01/09/19 at 11:59; Status DC Hydromorphone HCl (Dilaudid) 0.5 mg PRN Q10MIN PRN IV SEV PAIN, Second choice; Start 01/08/19 at 12:00; Stop 01/09/19 at 11:59; Status DC Prochlorperazine Edisylate (Compazine) 5 mg PACU PRN PRN IV NAUSEA, MRX1 Last administered on 01/08/19at 15:11; Start 01/08/19 at 12:00; Stop 01/09/19 at 11:59 ; Status DC Cefazolin Sodium/ Dextrose 50 ml @ 100 mls/hr 1X ONCE IV Last administered on 01/08/19at 12:18; Start 01/08/19 at 12:15; Stop 01/08/19 at 12:44; Status DC Cefazolin Sodium/ Dextrose 50 ml @ As Directed STK-MED ONCE IV ; Start 01/08/19 at 12:07; Stop 01/08/19 at 12:09; Status DC Ketamine HCl (Ketamine) 50 mg STK-MED ONCE .ROUTE ; Start 01/08/19 at 12:53; Stop 01/08/19 at 12:55; Status DC Neostigmine Methylsulfate (Bloxiverz) 10 mg STK-MED ONCE .ROUTE ; Start at 13:23; Stop 01/08/19 at 13:25; Status DC Glycopyrrolate (Robinul) 1 mg STK-MED ONCE .ROUTE ; Start 01/08/19 at 13:23; Stop 01/08/19 at 13:25; Status DC Fentanyl Citrate (Fentanyl 2ml Vial) 100 mcg STK-MED ONCE .ROUTE ; Start at 14:31; Stop 01/08/19 at 14:33; Status DC Prochlorperazine Edisylate (Compazine) 10 mg STK-MED ONCE .ROUTE ; Start at 14:31; Stop 01/08/19 at 14:33; Status DC Senna/Docusate Sodium (Senna Plus) 1 tab DAILY PO Last administered on at 08:59; Start 01/09/19 at 09:00 Polyethylene Glycol (miraLAX PACKET) 17 gm PRN DAILY PRN PO CONSTIPATION; Start 01/08/19 at 19:00 Ondansetron HCl (Zofran) 4 mg PRN Q4HRS PRN IV NAUSEA/VOMITING Last administered on 01/10/19at 20:38; Start 01/08/19 at 19:00 Magnesium Hydroxide (Milk Of Magnesia) 2,400 mg 1X PRN PRN PO CONSTIPATION; Start 01/09/19 at 06:00; Stop 01/10/19 at 05:59; Status DC Bisacodyl (Dulcolax Supp) [address] CONSTIPATION; Start 01/09/19 at 16:00; Stop 01/10/19 at 15:59; Status DC Dextrose (Dextrose 50%-Water Syringe) 12.5 gm PRN Q15MIN PRN IV SEE COMMENTS; Start 01/08/19 at 19:00 Cefazolin Sodium/ Dextrose 50 ml @ 100 mls/hr Q6H IV Last administered on 01/09 08:33; Start 01/08/19 at 20:00; Stop 01/09/19 at 08:29; Status DC Alprazolam (Xanax) 0.5 mg PRN Q6HRS PRN PO ANXIETY / AGITATION Last administered on 01/12/19 09:01; Start 01/08/19 at 19:30 Digoxin (Lanoxin) 500 mcg 1X ONCE IV Last administered on 01/09/19 09:14; Start 01/09/19 at 09:00; Stop 01/09/19 at 09:01; Status DC Metoprolol Tartrate (Lopressor Vial) 5 mg 1X ONCE IVP Last administered on 10:46; Start 01/09/19 at 10:45; Stop 01/09/19 at 10:46; Status DC Sodium Chloride 1,000 ml @ 100 mls/hr 1X ONCE IV Last administered on 12:46; Start 01/09/19 at 12:45; Stop 01/09/19 at 22:44; Status DC Digoxin (Lanoxin) 250 mcg 1X ONCE IV Last administered on 01/09/19 14:50; Start 01/09/19 at 15:00; Stop 01/09/19 at 15:01; Status DC Magnesium Sulfate 50 ml @ 25 mls/hr 1X ONCE IV Last administered on 01/09/19 14:49; Start 01/09/19 at 15:00; Stop 01/09/19 at 16:59; Status DC Fentanyl Citrate (Fentanyl 2ml Vial) 50 mcg PRN Q3HRS PRN IV PAIN Last administered on 01/12/19 04:57; Start 01/09/19 at 15:15 Acetaminophen/ Hydrocodone Bitart (Lortab 7.5/325) 1 tab PRN Q4HRS PRN PO PAIN Last administered on 01/12/19 11:09; Start 01/09/19 at 15:15 Apixaban (Eliquis) 5 mg BID PO Last administered on 01/12/19 08:59; Start 11/15 at 21:00 Amiodarone HCl 150 mg/Dextrose 103 ml @ 600 mls/hr 1X ONCE IV Last administered on 01/09/19 17:32; Start 01/09/19 at 17:15; Stop 01/10/19 at 16:10 ; Status DC Amiodarone HCl 900 mg/Dextrose 518 ml @ 0 mls/hr CONT PRN IV SEE I/O RECORD Last administered on 01/09/19at 17:33; Start 01/09/19 at 17:15; Stop 01/10/19 at 16:10; Status DC Metoprolol Tartrate (Lopressor) 25 mg BID PO Last administered on 01/12/19at 08: 59; Start 01/09/19 at 21:00 Sodium Chloride 1,000 ml @ 75 mls/hr 1X ONCE IV Last administered on at 00:45; Start 01/10/19 at 01:00; Stop 01/10/19 at 14:19; Status DC Info (Anti-Coagulation Monitoring By Pharmacy) 1 each PRN DAILY PRN MC SEE COMMENTS Last administered on 01/10/19at 14:17; Start 01/10/19 at 14:15 Amiodarone HCl (Cordarone) 200 mg DAILY PO ; Start 01/11/19 at 09:00; Stop 01/11 at 09:00; Status DC Amiodarone HCl (Cordarone) 200 mg DAILY PO Last administered on 01/12/19at 08:59 ; Start 01/10/19 at 16:15 Active Scripts Active Reported Vitamin D (Cholecalciferol (Vitamin D3)) 1,000 Unit Capsule 1 Cap PO DAILY PRN Omeprazole 20 Mg Capsule.dr 1 Cap PO DAILY PRN Eliquis (Apixaban) 5 Mg Tablet 5 Mg PO BID Metoprolol Tartrate 25 Mg Tablet 1 Tab PO BID PRN Propafenone Hcl 150 Mg Tablet 150 Mg PO BID Vitals/I & O Vital Sign - Last 24 Hours 01/11/19 01/11/19 01/11/19 01/11/19 13:11 14:11 15:00 16:09 Temp 98.8 98.8 Pulse 74 Resp 16 18 18 18 B/P (MAP) 113/59 (77) Pulse Ox 99 91 99 O2 Delivery Nasal Cannula Nasal Cannula Room Air O2 Flow Rate 2.0 2.0 2.0 2.0 01/11/19 01/11/19 01/11/19 01/11/19 16:39 19:51 20:00 20:30 Temp 98.3 98.3 Pulse 72 Resp 16 20 B/P (MAP) 114/57 (76) Pulse Ox 91 O2 Delivery Room Air Room Air Room Air 01/11/19 01/11/19 01/11/19 01/11/19 20:30 21:30 22:15 23:39 Temp 97.9 97.9 Pulse 72 74 Resp 20 B/P (MAP) 114/57 114/68 (83) Pulse Ox 91 91 96 O2 Delivery Room Air Room Air Nasal Cannula O2 Flow Rate 2.0 01/12/19 01/12/19 01/12/19 01/12/19 03:38 04:57 05:27 07:17 Temp 98.0 98.6 98.0 98.6 Pulse 78 69 Resp 18 18 B/P (MAP) 103/61 (75) 105/52 (69) Pulse Ox 95 95 95 92 O2 Delivery Nasal Cannula Room Air Nasal Cannula Nasal Cannula O2 Flow Rate 2.0 2.0 2.0 01/12/19 01/12/19 01/12/19 01/12/19 07:52 08:59 08:59 11:09 Pulse 78 74 B/P (MAP) 108/56 108/56 Pulse Ox 94 O2 Delivery Room Air Room Air 01/12/19 11:22 Temp 97.5 97.5 Pulse 71 Resp 18 B/P (MAP) 102/44 (63) Pulse Ox 91 O2 Delivery Nasal Cannula O2 Flow Rate 2.0 Intake and Output 01/11/19 01/11/19 01/12/19 15:00 23:00 07:00 Intake Total 200 ml 400 ml Output Total 650 ml 1300 ml 920 ml Balance -450 ml -1300 ml -520 ml OLMAN HAMMONDS III DO Jan 12, 2019 11:52
[2019-01-12] MEDS ORDERED: AMIO200T4 PO (12:00)
[2019-01-12] MEDS ORDERED: HYDR-2765 PO (12:28)
== END 2019-01-12 13:21 | DRG 481 ==
LOC: ER 03:17 → MERGE 04:30 → 4 NORTH 04:30 → 2 NORTH 01-09 16:54
PROVIDERS: ADMIT Internal Medicine; ATTEND Internal Medicine
PROC: 0QS606Z Reposition Right Upper Femur with Intramedullary Internal Fixation Device, Open Approach (ICD-10-PCS; principal; 2019-01-08 11:30)
DX: S72.141A Displaced intertrochanteric fracture of right femur, initial encounter for closed fracture (principal); Z68.41 Body mass index [BMI] 40.0-44.9, adult; K21.9 Gastro-esophageal reflux disease without esophagitis; I10 Essential (primary) hypertension; D64.9 Anemia, unspecified; E66.01 Morbid (severe) obesity due to excess calories; F41.9 Anxiety disorder, unspecified; I27.20 Pulmonary hypertension, unspecified; I48.0 Paroxysmal atrial fibrillation; W00.0XXA Fall on same level due to ice and snow, initial encounter; Y93.01 Activity, walking, marching and hiking; Y92.89 Other specified places as the place of occurrence of the external cause; Y99.8 Other external cause status; Z79.01 Long term (current) use of anticoagulants; Z90.710 Acquired absence of both cervix and uterus; Z82.49 Family history of ischemic heart disease and other diseases of the circulatory system
CPT/HCPCS: 36415; 51702; 71045; 73502; 76000; 80048; 80053; 81001; 82962; 83735; 84443; 85007; 85025; 85610; 93005; 93306; 96374; 96375; A7015; C1713; C1887; J0282; J0696; J0780; J1100; J1160; J2001; J2250; J2270; J2405; J2704; J2710; J2765; J3010; J3475; J3490; J7030; J7120; 97110; 97116; 97530; 97535; 99285-25; G0378

== ENCOUNTER 2019-02-11 23:23 | Observation (INO) | payer MEDICARE ==
[~2019-02-11] VITALS: Ht 162.6 cm; Wt 96.8 kg
[~2019-02-11 23:23] MED LIST changes: +AMIO200T4 PO; +HYDR-2765 PO; +OMEP20CA10 PO
[2019-02-12 01:52] LABS: BASO % 1 % (0-3); EOS # 0.1 x10^3/uL (0.0-0.7); EOS % 1 % (0-3); HEMATOCRIT 42.3 % (36.0-47.0); HEMOGLOBIN 13.6 g/dL (12.0-15.5); LYMPH # 1.3 x10^3/uL (1.0-4.8); LYMPH % 22 % (24-48); MEAN CORPUSCULAR HEMOGLOBIN 29 pg (25-35); MEAN CORPUSCULAR HGB CONC 32 g/dL (31-37); MEAN CORPUSCULAR VOLUME 90 fL (79-100); MONO # 0.3 x10^3/uL (0.0-1.1); MONO % 6 % (0-9); NEUT # 4.2 x10^3uL (1.8-7.7); NEUT % 71 % (31-73); PLATELET COUNT 189 x10^3/uL (140-400); RED BLOOD COUNT 4.71 x10^6/uL (3.50-5.40); RED CELL DISTRIBUTION WIDTH 15.2 % (11.5-14.5)
[2019-02-12 01:55] LABS: CALCIUM 8.9 mg/dL (8.5-10.1); CREATININE 0.7 mg/dL (0.6-1.0); GFR 82.7; POTASSIUM 3.7 mmol/L (3.5-5.1)
[2019-02-12 02:01] LABS: ALBUMIN 3.3 g/dL (3.4-5.0); ALBUMIN/GLOBULIN RATIO 1.1 (1.0-1.7); TOTAL BILIRUBIN 0.5 mg/dL (0.2-1.0); TOTAL PROTEIN 6.4 g/dL (6.4-8.2)
--- NOTE | 2019-02-12 02:33 | RAD ---
INDICATION: Right calf pain with recent surgery. COMPARISON: None. TECHNIQUE: Grayscale, color and doppler ultrasound images were obtained of the right lower extremity venous vasculature. RIGHT: No thrombus identified in the common femoral vein, femoral vein, popliteal vein or visualized calf veins. IMPRESSION: 1. No thrombus identified in deep venous system of right lower extremity. Electronically signed by: Milind Easley MD (02/12/2019 2:31 AM) [id number]
--- NOTE | 2019-02-12 02:36 | PHYS DOC ---
Past Medical History Past Medical History: A-Fib, Anxiety, Hypertension Past Surgical History: Hysterectomy, Other Additional Past Surgical Histo: BLADDER PROLAPSE, RIGHT HIP FX Alcohol Use: Occasionally Drug Use: None Adult General Chief Complaint Chief Complaint: LOWER EXT PAIN HPI HPI Patient is a 68-year-old female who presents with complaint of continued right hip pain and right lower leg pain. Patient had right hip surgery on January 08. Patient has had continued pain in that right hip that is progressively getting worse and patient is now having difficulty with weightbearing. She has also had swelling in her lower leg for since the surgery. Patient is on blood thinner. Patient has no chest pain or shortness of breath. She rates the pain in her right hip at a 10 out of 10. Review of Systems Review of Systems Constitutional: Denies fever or chills [] Respiratory: Denies cough or shortness of breath [] Cardiovascular: No additional information not addressed in HPI [] GI: Denies abdominal pain, nausea, vomiting or diarrhea [] Musculoskeletal: Complains of right hip and right lower leg pain [] Integument: Denies rash or skin lesions [] All other systems were reviewed and found to be within normal limits, except as documented in this note. Current Medications Current Medications Current Medications Medications (Trade) Dose Ordered Sig/Addi Start Time Stop Time Status Last Admin Dose Admin Ondansetron HCl (Zofran) 4 mg 1X ONCE 02/12/19 03:30 02/12/19 03:31 DC 02/12/19 03:23 4 MG Allergies Allergies Allergies Coded Allergies Type Severity Reaction Last Updated Verified No Known Drug Allergies 02/23/18 No Physical Exam Physical Exam Constitutional: Well developed, well nourished, no acute distress, non-toxic appearance. [] HENT: Normocephalic, atraumatic, bilateral external ears normal, oropharynx moist, no oral exudates, nose normal. [] Eyes: PERRLA, EOMI, conjunctiva normal, no discharge. [] Neck: Normal range of motion, no tenderness, supple, no stridor. [] Cardiovascular: Regular rate and rhythm[] Lungs & Thorax: Bilateral breath sounds clear to auscultation [] Abdomen: Bowel sounds normal, soft, no tenderness. [] Skin: Warm, dry, no erythema, no rash. [] Extremities: Examination of right lower extremity demonstrates swelling in the lower leg with some calf tenderness. Patient also reports to pain with range of motion testing of the right hip. [] Neurologic: Alert and oriented X 3, no focal deficits noted. [] Current Patient Data Vital Signs Vital Signs Date Time Temp Pulse Resp B/P (MAP) Pulse Ox O2 Delivery O2 Flow Rate FiO2 02/12/19 03:52 87 18 103/68 (80) 95 Room Air 02/12/19 00:57 97.8 97.8 Lab Values Laboratory Tests Test 02/12/19 01:30 White Blood Count 6.0 x10^3/uL (4.0-11.0) Red Blood Count 4.71 x10^6/uL (3.50-5.40) Hemoglobin 13.6 g/dL (12.0-15.5) Hematocrit 42.3 % (36.0-47.0) Mean Corpuscular Volume 90 fL (79-100) Mean Corpuscular Hemoglobin 29 pg (25-35) Mean Corpuscular Hemoglobin Concent 32 g/dL (31-37) Red Cell Distribution Width 15.2 % (11.5-14.5) H Platelet Count 189 x10^3/uL (140-400) Neutrophils (%) (Auto) 71 % (31-73) Lymphocytes (%) (Auto) 22 % (24-48) L Monocytes (%) (Auto) 6 % (0-9) Eosinophils (%) (Auto) 1 % (0-3) Basophils (%) (Auto) 1 % (0-3) Neutrophils # (Auto) 4.2 x10^3uL (1.8-7.7) Lymphocytes # (Auto) 1.3 x10^3/uL (1.0-4.8) Monocytes # (Auto) 0.3 x10^3/uL (0.0-1.1) Eosinophils # (Auto) 0.1 x10^3/uL (0.0-0.7) Basophils # (Auto) 0.0 x10^3/uL (0.0-0.2) Sodium Level 143 mmol/L (136-145) Potassium Level 3.7 mmol/L (3.5-5.1) Chloride Level 107 mmol/L (98-107) Carbon Dioxide Level 27 mmol/L (21-32) Anion Gap 9 (6-14) Blood Urea Nitrogen 8 mg/dL (7-20) Creatinine 0.7 mg/dL (0.6-1.0) Estimated GFR (Cockcroft-Gault) 82.7 BUN/Creatinine Ratio 11 (6-20) Glucose Level 132 mg/dL (70-99) H Calcium Level 8.9 mg/dL (8.5-10.1) Total Bilirubin 0.5 mg/dL (0.2-1.0) Aspartate Amino Transferase (AST) 17 U/L (15-37) Alanine Aminotransferase (ALT) 16 U/L (14-59) Alkaline Phosphatase 128 U/L (46-116) H Total Protein 6.4 g/dL (6.4-8.2) Albumin 3.3 g/dL (3.4-5.0) L Albumin/Globulin Ratio 1.1 (1.0-1.7) Laboratory Tests 02/12/19 01:30 Laboratory Tests 02/12/19 01:30 EKG EKG [] Radiology/Procedures Radiology/Procedures [] Course & Med Decision Making Course & Med Decision Making Pertinent Labs and Imaging studies reviewed. (See chart for details) [] Dragon Disclaimer Dragon Disclaimer This electronic medical record was generated, in whole or in part, using a voice recognition dictation system. Departure Departure Impression: Primary Impression: Right hip pain Additional Impression: Intractable pain Disposition: ADMITTED INPATIENT Admitting Physician: Diane Larson Condition: GOOD Referrals: ALYSON WEBER MD (PCP) Problem Qualifiers ANDERS LUNA Jr. DO Feb 12, 2019 02:36
[2019-02-12] MEDS ORDERED: ONDANSETRON PF 4 MG/2 ML VIAL. IV ONE (03:30)
[2019-02-12] MEDS ORDERED: ONDANSETRON PF 4 MG/2 ML VIAL. IV PRN (04:30)
--- NOTE | 2019-02-12 05:15 | NUR ---
Patient admitted from ER to room 406 per cart. Admitting dx: intractable right hip pain. Right hip is slightly pink with swelling and warm to touch. US of right leg negative for DVT. Patient has 2 surgical incisions that are healed. Patient has NKA. Patient lives at home with her significant other Kevyn. Daughter is at bedside also. Both lower legs have edema. 2+ on right and 1+ on left. Patient is obese and uses a walker to ambulate. Patient fell 6 weeks ago and fractured her right hip. Dr. Anderson did surgery to repair the right hip. Patient is tearful on admission requiring Xanax to calm her down. Will continue to monitor patient. Dr. Anderson will be notified of consultation.
[2019-02-12] MEDS ORDERED: ALPRAZolam 0.25 MG TABLET PO ONE (05:30)
[2019-02-12] MEDS: IV NORMAL SALINE 1000ML BAG 1,000 ML IV SCH ×2 (05:55→14:43)
[2019-02-12 07:00] VITALS: BP 133/73
[2019-02-12] MEDS ORDERED: ONDA4TAB12 PO (07:22)
[2019-02-12] MEDS ORDERED: ALPR0.254 PO (07:22)
[2019-02-12] MEDS: MORPHINE SULFATE 2 MG/ML VIAL. IV PRN ×2 (07:47→17:52)
--- NOTE | 2019-02-12 08:39 | RAD ---
Indication: Postop hip pain TECHNIQUE: Multiple views of the right hip joint COMPARISON: None FINDINGS/ impression: Status post ORIF of right intertrochanteric fracture with intramedullary ferny and femoral neck screws. Bilateral hip joints are symmetric without evidence of arthritis. Right greater and lesser trochanter fracture fragments are seen. Left hip joint is within normal limits. Electronically signed by: Simon Amado DO (02/12/2019 8:36 AM) [facility]
[2019-02-12 11:00] VITALS: BP 110/65
--- NOTE | 2019-02-12 11:20 | HP ---
ADMIT DATE: 02/12/2019 CHIEF COMPLAINT: Right hip pain. HISTORY OF PRESENT ILLNESS: The patient is a pleasant elderly female who fell a couple of weeks ago. We admitted her at that time and fixed her right hip. She had a ferny placed at that time. She then went to detention. It should be noted that she also had a brief episode of AFib while she was in the hospital at that time. Anyway, after going to skilled for 3 weeks she then went home. So overall she had been doing great, but now she has developed right hip pain. She was brought in for evaluation. They did some imaging; it really does not show much. Her white count is normal. She does not have any fevers, but we are concerned that perhaps it could be an underlying occult infection. I have discussed the case with ER physician. We are going to admit the patient and consult Orthopedics. It should be noted that the patient rates her pain at 7/10. She has associated nausea and it is worse with moving. PAST MEDICAL HISTORY: Recent right hip fracture, AFib, anxiety, hypertension, hysterectomy, bladder prolapse, right hip surgery. ALLERGIES: None. FAMILY HISTORY: Diabetes. SOCIAL HISTORY: She does not drink, smoke or take drugs. MEDICATIONS: Reviewed, please refer to the MRAD. She is on Eliquis, amiodarone, metoprolol, hydrocodone, Tylenol, alprazolam, ondansetron, omeprazole and vitamins. REVIEW OF SYSTEMS: GENERAL: No history of weight change, weakness or fevers. SKIN: No bruising, hair changes or rashes. EYES: No blurred, double or loss of vision. NOSE AND THROAT: No history of nosebleeds, hoarseness or sore throat. HEART: No history of palpitations, chest pain or shortness of breath on exertion. LUNGS: Denies cough, hemoptysis, wheezing or shortness of breath. GASTROINTESTINAL: Denies changes in appetite, nausea, vomiting, diarrhea or constipation. GENITOURINARY: No history of frequency, urgency, hesitancy or nocturia. NEUROLOGIC: Denies history of numbness, tingling, tremor or weakness. PSYCHIATRIC: No history of panic, anxiety or depression. ENDOCRINE: No history of heat or cold intolerance, polyuria or polydipsia. EXTREMITIES: She complains of right hip pain. PHYSICAL EXAMINATION: VITAL SIGNS: Temperature afebrile, pulse 92, respirations 18, blood pressure 133/90. GENERAL: She is alert, cooperative. HEART: Normal S1, S2. LUNGS: Clear. ABDOMEN: Soft. EXTREMITIES: The right hip is swollen. ENDOCRINE: No thyromegaly. LYMPHATICS: No cervical nodes. HEMATOPOIETIC: No bruising. PSYCHIATRIC: She is depressed. LABORATORY DATA: Hematology is normal. Electrolytes are normal. ASSESSMENT AND PLAN: Recurrent hip pain after recent hip fracture with repair. Clinically, she is doing pretty well. Her white count is normal. She does not have a fever. Doubt this is infected, but we are going to consult Orthopedics, do some physical therapy, occupational therapy. DVT prophylaxis. Home meds. Full code. SNU evaluation. OLMAN HAMMONDS DO DR: NANI/dennis JOB#: [id number] / [id number]
--- NOTE | 2019-02-12 12:17 | NUR ---
SS following for discharge planning. SS reviewed pt chart. Pt is from home and currently on room air. Pt had recent skilled rehabilitation stay at [facility] in December of 2018 and has used up her twenty medicare days. Pt is currently in co-pay days. No discharge needs noted at this time.
[2019-02-12 15:00] VITALS: BP 103/59
[2019-02-12] MEDS ORDERED: ANTI-COAG MONITOR BY PHARMACY. MC PRN (18:15)
[2019-02-12 19:00] VITALS: BP 126/81
[2019-02-12] MEDS: APIXABAN 5 MG TABLET. PO SCH (20:38)
[2019-02-12] MEDS: ALPRAZolam 0.25 MG TABLET PO SCH (20:39)
[2019-02-12] MEDS: METOPROLOL TART IMMED RELEASE 25 MG TABLET. PO SCH (20:39)
[2019-02-12 23:00] VITALS: BP 137/82
[2019-02-13] MEDS: IV NORMAL SALINE 1000ML BAG 1,000 ML IV SCH (01:00)
--- NOTE | 2019-02-13 01:38 | CONS ---
DATE OF CONSULTATION: 02/12/2019 HISTORY OF PRESENT ILLNESS: The patient is a 68-year-old female that underwent fixation of an intertrochanteric right hip fracture on 01/08/2019. At that point, she was postoperatively 25% weightbearing and subsequently advanced in her weightbearing. She said she was doing very well, improving on an ongoing basis until last Tuesday when she went out to the doctor's office to a Urology appointment and stated that she walked more than she ever had by a long shot and the next day actually went into some physical therapy where they did some new exercises and advanced her activity significantly. She was sore over the next few days and Tuesday night actually came in to the Emergency Room as she was having difficulty getting around home and bearing weight on the right hip. Currently, she complains of pain that radiates down the leg from the hip all the way down to the right calf and she has had some swelling in the leg as well. She denies any drainage, redness, fever throughout the entire recovery process prior to the increased pain and swelling that she has now experienced. She had severe pain on admission and now has good control of her pain with some IV pain medications including morphine. PAST MEDICAL HISTORY: Significant for atrial fibrillation, anxiety and hypertension. PAST SURGICAL HISTORY: Significant for right hip ORIF, surgery for hysterectomy and bladder prolapse. ALLERGIES: She has no known drug allergies. MEDICATIONS: List is reviewed. FAMILY HISTORY: Diabetes. SOCIAL HISTORY: She is accompanied by her and daughter. Denies smoking, alcohol or drug use and was previously at home. REVIEW OF SYSTEMS: Negative for any chest pain, shortness of breath, fever, chills, incisional drainage. She has had recent right hip pain and swelling as noted above. PHYSICAL EXAMINATION: GENERAL: Pleasant, cooperative 68-year-old female, alert and oriented, calm, cooperative, resting comfortably in bed. EXTREMITIES: On examination of the right hip, her incisions are well healed. She does have some swelling as expected in the right hip. There is certainly no redness or erythema present. She has no pain on gentle internal and external rotation of either hip with normal motion bilaterally. Likewise, no pain on bearing weight through an extended extremity with her supine in bed. She does have some tightness and discomfort with a straight leg raise test, not directly radiating pain down her lower extremity or causing any numbness or tingling. Hip, knee and ankle joints are stable and no swelling is noted in the knee or ankle joint. She does have some calf swelling, but no calf tenderness. Distal neurovascular status is otherwise intact. IMAGING: X-rays of the AP pelvis as well as lateral of her hip show an intertrochanteric hip fracture that remains well aligned. There are minimal healing changes seen as of yet, but no change in the alignment or any hardware movement or cut-out since her intraoperative x-ray views. Laboratory examination includes a white count of 6.0. Other labs are normal as well as her electrolytes. IMPRESSION: Right hip pain following open reduction and internal fixation of hip fracture about 4 weeks ago. TREATMENT PLAN: I went over in detail with her family that I do not have any concern based on her clinical course, laboratory findings or current examination that she is having infection. I think it is probably most likely given her explanation that her increased activity has strained some of her muscular attachments and are causing her trouble with movement of her hip. I therefore think we should back off a bit with her physical therapy. She can be about 25% weightbearing, the rest supported by a walker and see how she does with physical therapy. Given that she does have some radiation of pain down into the right calf area, I am concerned with the possibility of potential onset of radicular pain as hip pain typically is not referred distal to the knee. She does not indicate any history of radicular type pain, but given this anomaly and the somewhat atypical onset of her hip pain otherwise and radiation, I think it is prudent to evaluate. Again, I have no concern, whatsoever for infection based on any of her clinical course, physical examination or laboratory findings. We will continue her deep venous thrombosis prophylaxis and mobilize with physical therapy as noted above. PUMA SNOW MD DR: ARVIN/dennis JOB#: [id number] / [id number]
[2019-02-13 03:00] VITALS: BP 139/91
[2019-02-13] MEDS ORDERED: ACETAMINOPHEN 325 MG TABLET. PO PRN (03:00)
[2019-02-13 07:00] VITALS: BP 124/82
[2019-02-13] MEDS ORDERED: PANTOPRAZOLE 40 MG TABLET.DR. PO SCH (07:30)
[2019-02-13] MEDS: HYDROcodone/APAP 5/325MG 1 TAB TABLET PO PRN ×2 (08:10→15:49)
[2019-02-13] MEDS: ALPRAZolam 0.25 MG TABLET PO SCH (08:38)
[2019-02-13] MEDS: METOPROLOL TART IMMED RELEASE 25 MG TABLET. PO SCH (08:38)
[2019-02-13] MEDS: APIXABAN 5 MG TABLET. PO SCH (08:38)
[2019-02-13] MEDS ORDERED: CHOLECALCIFEROL (VITAMIN D3) 1,000 UNIT TABLET PO SCH (09:00)
[2019-02-13] MEDS ORDERED: AMIODARONE HCL 200 MG TABLET. PO SCH (09:00)
--- NOTE | 2019-02-13 10:15 | RAD ---
MRI of the lumbar spine without contrast 02/13/2019 CLINICAL HISTORY: Low back pain with worsening right hip pain. TECHNIQUE: Unenhanced T1-weighted and T2-weighted sagittal and axial and inversion recovery sagittal images of the lumbar spine were obtained. FINDINGS: Very mild S-shaped curvature of the thoracolumbar spine is seen. Degenerative signal changes are seen involving all of the disks of the lumbar spine. Degenerative signal changes are seen within the marrow surrounding these discs. Multiple rounded high signal intensity lesions are seen involving the visualized portions of both kidneys on the T2-weighted images. These measure 3 mm to at least 11.4 cm in size. They likely represent cysts. On the axial images throughout the lumbar disc spaces, the changes of degenerative disc disease are seen. These consist of minimal to mild generalized disc bulges and degenerative changes involving the facet joints along with mild to moderate ligamentum flavum hypertrophy and small facet joint effusions. These findings do not result in significant central spinal canal or neural foraminal stenosis at any level. IMPRESSION: The changes of degenerative disc disease are seen throughout the lumbar spine. These findings do not result in significant central spinal canal or neural foraminal stenosis at any level. Electronically signed by: Manan Rosales MD (02/13/2019 10:11 AM) [id number]
--- NOTE | 2019-02-13 10:25 | PDOC ---
PROGRESS NOTES Chief Complaint Chief Complaint R hip pain s/p hip ORIF 4 weeks ago Swelling of R hip History of Present Illness History of Present Illness Ms. Oneal is a 68 yo female with R hip pain s/p R hip ORIF 4 weeks ago. Patient seen and examined at bedside. No new complaints today. Pain is reduced. Not likely infection per ortho. Ortho following. MRI completed today. Vitals Vitals Vital Signs Date Time Temp Pulse Resp B/P (MAP) Pulse Ox O2 Delivery O2 Flow Rate FiO2 02/13/19 09:13 16 Room Air 02/13/19 08:38 82 124/82 02/13/19 07:00 97.9 94 97.9 Physical Exam General: Alert, Oriented X3, No acute distress Heart: Regular rate, No murmurs Lungs: Clear Abdomen: Normal bowel sounds, Soft, No tenderness, Other (mild edema of R hip with erythema) Extremities: No clubbing, No cyanosis Skin: No rashes, No significant lesion Review of Systems Review of Systems Denies pain Denies chest pain Denies shortness of breath Assessment and Plan Assessmemt and Plan Problems Medical Problems: (1) Intractable pain Status: Acute (2) Right hip pain Status: Acute Assessment: R hip pain s/p hip ORIF 4 weeks ago Swelling around R hip Plan: Reviewed MRI: DDD throughout spine, no central spinal canal or foraminal stenosis Continue pain management Monitor labs and vitals DVT ppx Appreciate Ortho input Consider rehab placement PT/OT Comment Review of Relevant I have reviewed the following items marly (where applicable) has been applied. Labs Laboratory Tests Test 02/12/19 01:30 White Blood Count 6.0 x10^3/uL (4.0-11.0) Red Blood Count 4.71 x10^6/uL (3.50-5.40) Hemoglobin 13.6 g/dL (12.0-15.5) Hematocrit 42.3 % (36.0-47.0) Mean Corpuscular Volume 90 fL (79-100) Mean Corpuscular Hemoglobin 29 pg (25-35) Mean Corpuscular Hemoglobin Concent 32 g/dL (31-37) Red Cell Distribution Width 15.2 % (11.5-14.5) Platelet Count 189 x10^3/uL (140-400) Neutrophils (%) (Auto) 71 % (31-73) Lymphocytes (%) (Auto) 22 % (24-48) Monocytes (%) (Auto) 6 % (0-9) Eosinophils (%) (Auto) 1 % (0-3) Basophils (%) (Auto) 1 % (0-3) Neutrophils # (Auto) 4.2 x10^3uL (1.8-7.7) Lymphocytes # (Auto) 1.3 x10^3/uL (1.0-4.8) Monocytes # (Auto) 0.3 x10^3/uL (0.0-1.1) Eosinophils # (Auto) 0.1 x10^3/uL (0.0-0.7) Basophils # (Auto) 0.0 x10^3/uL (0.0-0.2) Sodium Level 143 mmol/L (136-145) Potassium Level 3.7 mmol/L (3.5-5.1) Chloride Level 107 mmol/L (98-107) Carbon Dioxide Level 27 mmol/L (21-32) Anion Gap 9 (6-14) Blood Urea Nitrogen 8 mg/dL (7-20) Creatinine 0.7 mg/dL (0.6-1.0) Estimated GFR (Cockcroft-Gault) 82.7 BUN/Creatinine Ratio 11 (6-20) Glucose Level 132 mg/dL (70-99) Calcium Level 8.9 mg/dL (8.5-10.1) Total Bilirubin 0.5 mg/dL (0.2-1.0) Aspartate Amino Transf (AST/SGOT) 17 U/L (15-37) Alanine Aminotransferase (ALT/SGPT) 16 U/L (14-59) Alkaline Phosphatase 128 U/L (46-116) Total Protein 6.4 g/dL (6.4-8.2) Albumin 3.3 g/dL (3.4-5.0) Albumin/Globulin Ratio 1.1 (1.0-1.7) Medications Current Medications Ondansetron HCl (Zofran) 4 mg 1X ONCE IV Last administered on 02/12/19at 03:23 ; Start 02/12/19 at 03:30; Stop 02/12/19 at 03:31; Status DC Ondansetron HCl (Zofran) 4 mg PRN Q8HRS PRN IV NAUSEA/VOMITING 1ST CHOICE; Start 02/12/19 at 04:30; Stop 02/13/19 at 04:29; Status DC Morphine Sulfate (Morphine Sulfate) 2 mg PRN Q2HR PRN IV SEVERE PAIN Last administered on 02/12/19 17:52; Start 02/12/19 at 04:30; Stop 02/13/19 at 04:29 ; Status DC Sodium Chloride 1,000 ml @ 100 mls/hr Q10H IV Last administered on 02/13/19 01:00; Start 02/12/19 at 05:00; Stop 02/13/19 at 04:59; Status DC Alprazolam (Xanax) 0.25 mg 1X ONCE PO Last administered on 02/12/19 05:04; Start 02/12/19 at 05:30; Stop 02/12/19 at 05:31; Status DC Alprazolam (Xanax) 0.25 mg BID PO Last administered on 02/13/19 08:38; Start 02/12/19 at 21:00 Amiodarone HCl (Cordarone) 200 mg DAILY PO Last administered on 02/13/19 08:38 ; Start 02/13/19 at 09:00 Apixaban (Eliquis) 5 mg BID PO Last administered on 02/13/19 08:38; Start at 21:00 Metoprolol Tartrate (Lopressor) 25 mg BID PO Last administered on 02/13/19 08: 38; Start 02/12/19 at 21:00 Vitamin D (Vitamin D3) 1,000 unit DAILY PO Last administered on 02/13/19 08:38 ; Start 02/13/19 at 09:00 Pantoprazole Sodium (Protonix) 40 mg DAILYAC PO Last administered on 02/13/19 06:24; Start 02/13/19 at 07:30 Info (Anti-Coagulation Monitoring By Pharmacy) 1 each PRN DAILY PRN MC SEE COMMENTS; Start 02/12/19 at 18:15 Acetaminophen (Tylenol) 650 mg PRN Q6HRS PRN PO HEADACHE Last administered on 03:01; Start 02/13/19 at 03:00 Acetaminophen/ Hydrocodone Bitart (Lortab 5/325) 1 tab PRN Q4HRS PRN PO PAIN Last administered on 02/13/19at 08:10; Start 02/13/19 at 08:15 Active Scripts Active Reported Ondansetron Odt (Ondansetron) 4 Mg Tab.rapdis 1 Tab PO PRN Q6-8HRS Alprazolam 0.25 Mg Tablet 1 Tab PO BID Hydrocodone-Apap 7.5-325 (Hydrocodone Bit/Acetaminophen) 1 Tab Tablet 1 Tab PO PRN Q4HRS PRN Amiodarone Hcl 200 Mg Tablet 1 Tab PO DAILY Vitamin D (Cholecalciferol (Vitamin D3)) 1,000 Unit Capsule 1 Cap PO DAILY PRN Omeprazole 20 Mg Capsule.dr 1 Cap PO DAILY PRN Eliquis (Apixaban) 5 Mg Tablet 5 Mg PO BID Metoprolol Tartrate 25 Mg Tablet 1 Tab PO BID PRN Omeprazole 20 Mg Tablet.dr 1 Tab PO DAILY Tylenol (Acetaminophen) 325 Mg Tablet 1-2 Tab PO PRN PRN Vitamin D (Cholecalciferol (Vitamin D3)) 1,000 Unit Capsule 1 Cap PO DAILY Propafenone Hcl 150 Mg Tablet 150 Mg PO BID Vitals/I & O Vital Sign - Last 24 Hours 02/12/19 02/12/19 02/12/19 02/12/19 11:00 12:10 15:00 17:52 Temp 98.3 98.0 98.3 98.0 Pulse 94 87 Resp 18 18 16 B/P (MAP) 110/65 (80) 103/59 (74) Pulse Ox 95 95 O2 Delivery Room Air Room Air Room Air Room Air 02/12/19 02/12/19 02/12/19 02/12/19 18:23 19:00 20:00 20:39 Temp 98.0 98.0 Pulse 85 85 Resp 16 18 B/P (MAP) 126/81 (96) 126/81 Pulse Ox 92 O2 Delivery Room Air Room Air Room Air 02/12/19 02/13/19 02/13/19 02/13/19 23:00 03:00 07:00 08:00 Temp 98.2 98.3 97.9 98.2 98.3 97.9 Pulse 80 83 82 Resp 16 16 18 B/P (MAP) 137/82 (100) 139/91 (107) 124/82 (96) Pulse Ox 95 96 94 O2 Delivery Room Air Room Air Room Air Room Air 02/13/19 02/13/19 02/13/19 02/13/19 08:10 08:38 08:38 09:13 Pulse 82 82 Resp 16 16 B/P (MAP) 124/82 124/82 O2 Delivery Room Air Room Air OLMAN HAMMONDS III DO Feb 13, 2019 10:25
[2019-02-13 11:00] VITALS: BP 104/60
--- NOTE | 2019-02-13 14:29 | SNU/HH DC ---
DISCHARGE WITH HOME HEALTH DISCHARGE INFORMATION: Final Diagnosis: Problems Medical Problems: (1) Intractable pain Status: Acute (2) Right hip pain Status: Acute Condition on Discharge: Stable CODE STATUS: Code Status: Full HOME HEALTH: Face to Face: I certify this patient is under my care and that I, or a nurse practitioner or physician's pastoral assistant working with me, had a face to face encounter that meets the physician face to face encounter requirements with this patient on []. Medical Complications: S/P Joint Replacement Physical Therapy For: Evalulation/Treatment Occupational Therapy For: Evaluation/Treatment Home Health Aide For: Self-care Pt Meets Homebound Status: Poor coordination w/ amb. POST DISCHARGE ORDERS: Activity Instructions for Disc: Activity as tolerated, Bedrest today, Other, see below Weight Bearing Status after Di: As tolerated, Other, see below DIET AFTER DISCHARGE: Cardiac Wound/Incision Care: Ice to area for comfort, Change dressing CHECKS AFTER DISCHARGE: Checks after discharge: Check blood press - daily, Check your Temp as needed TREATMENT/EQUIPMENT ORDERS: Adaptive Equipment Issued: None CERTIFICATION STATEMENT: Certification Statement: Certification Statement: Based on the above finding, I certify that this patient is confined to the home and needs intermittent retirement care, physical therapy and/or speech therapy, or continues to need occupational therapy.~ This patient is under my care, and I have initiated the establishment of the plan of care.~ This patient will be followed by myself or a community physician who will periodically review the plan of care. Home Meds Reported Medications Ondansetron (ONDANSETRON ODT) 4 Mg Tab.rapdis, 1 TAB PO PRN Q6-8HRS for nausea, #16 TAB 02/12/19 Alprazolam (ALPRAZOLAM) 0.25 Mg Tablet, 1 TAB PO BID for anxiety, #60 TAB 02/12/19 Hydrocodone Bit/Acetaminophen (HYDROCODONE-APAP 7.5-325 ) 1 Tab Tablet, 1 TAB PO PRN Q4HRS PRN for PAIN, TAB 0 Refills 01/12/19 Amiodarone Hcl (AMIODARONE HCL) 200 Mg Tablet, 1 TAB PO DAILY for Afib, #90 TAB 1 Refill 01/12/19 Cholecalciferol (Vitamin D3) (VITAMIN D) 1,000 Unit Capsule, 1 CAP PO DAILY PRN for NUTRITION, #30 CAP 3 Refills 01/08/19 Omeprazole (OMEPRAZOLE) 20 Mg Capsule.dr, 1 CAP PO DAILY PRN for STOMACH ULCERS , #30 CAP 5 Refills 01/08/19 Apixaban (ELIQUIS) 5 Mg Tablet, 5 MG PO BID for afib, TAB 01/08/19 Metoprolol Tartrate (METOPROLOL TARTRATE) 25 Mg Tablet, 1 TAB PO BID PRN for HYPERTENSION, SEE COMMENTS, #180 TAB 1 Refill 01/08/19 Omeprazole (OMEPRAZOLE) 20 Mg Tablet.dr, 1 TAB PO DAILY, TAB 02/23/18 Acetaminophen (TYLENOL) 325 Mg Tablet, 1-2 TAB PO PRN PRN for MILD PAIN / TEMP, #60 TAB 2 Refills 02/23/18 Cholecalciferol (Vitamin D3) (VITAMIN D) 1,000 Unit Capsule, 1 CAP PO DAILY, # 30 CAP 3 Refills 02/23/18 Propafenone Hcl (PROPAFENONE HCL) 150 Mg Tablet, 150 MG PO BID, TAB 02/23/18 Discontinued Reported Medications Metoprolol Tartrate (METOPROLOL TARTRATE) 25 Mg Tablet, 1 TAB PO BID, #180 TAB 1 Refill 02/23/18 Apixaban (ELIQUIS) 5 Mg Tablet, 5 MG PO BID, TAB 02/23/18 OLMAN HAMMONDS III DO Feb 13, 2019 14:29
--- NOTE | 2019-02-13 14:59 | DS ---
DATE OF DISCHARGE: 02/13/2019 ADMISSION DIAGNOSIS: Right hip pain after recent surgery. DISCHARGE DIAGNOSIS: Postop pain. CONSULTS: Orthopedics. PROCEDURES: None. HOSPITAL COURSE: The patient is a pleasant middle-aged female who presented with right hip pain. She had a recent hip replacement. After that replacement, she did go to skilled, was doing well and went home, but after a few weeks, she has developed hip pain. We are concerned she could have an infection. She was brought in. We consulted Orthopedics. We have done several images, the hip seems to be stable. We suspect this is just postop pain. We plan to discharge to home with home health. We want to send her to [facility], but she is out of her skilled days and has copay, so we are going to get her home with home health. DISPOSITION: Home with home health. ACTIVITY: As tolerated. DIET: Low sodium. MEDICATIONS: Please see the MRAD. TOTAL TIME: 31 minutes. OLMAN HAMMONDS DO DR: NANI/dennis JOB#: [id number] / [id number]
--- NOTE | 2019-02-13 15:47 | NUR ---
SW following. Discussed with RN, pt anxious to go home. Family is agreeable to take her home today, and continue the outpatient therapy at [facility]. RN to fax the resumption of outpatient therapy order to [facility]. No further SW needs.
--- NOTE | 2019-02-13 15:55 | NUR ---
Discharge instructions and belongings reviewed with patient, verbalized understanding. Patient was escorted via wheelchair out of the hospital by Leslye AVILA accompanied by her .
== END 2019-02-13 15:57 | disposition home or self-care (01) ==
LOC: ER 23:23 → 4 NORTH 02-12 04:30
PROVIDERS: ADMIT Internal Medicine; ATTEND Internal Medicine
DX: M25.551 Pain in right hip (principal); F41.9 Anxiety disorder, unspecified; I10 Essential (primary) hypertension; I48.91 Unspecified atrial fibrillation; Z90.710 Acquired absence of both cervix and uterus; Z91.81 History of falling; Z83.3 Family history of diabetes mellitus
CPT/HCPCS: 36415; 72148; 73502; 80053; 85025; 93971; 96374; 96375; 96376; 99284; G0378; J2270; J2405; J7030; G0379

== ENCOUNTER → 2019-06-21 | Outpatient (CLI) | payer MEDICARE ==
[~2019-06-21] MED LIST changes: +ALPR0.254 PO; +ONDA4TAB12 PO
--- NOTE | 2019-06-21 10:46 | RAD ---
MR of the right shoulder HISTORY: Worsening pain after fall 5 months ago. TECHNIQUE: Routine multiplanar sequences are obtained. FINDINGS: The acromioclavicular joint is mildly degenerative with undersurface osteophytes. Rotator cuff tendinosis. Partial-thickness undersurface tearing of the supraspinatus and infraspinatus tendon, up to 90% deep, no complete through and through full-thickness rupture. Trace fluid in the subdeltoid bursa. Partial subscapularis tendon tear. Trace glenohumeral joint effusion. Mild degenerative changes at the glenohumeral joint. Mild motion degradation may compromise labral evaluation. There is mild degenerative signal within the labrum with a possible degenerative tear of the superior and inferior labrum. Mild biceps tendinosis. Mild cystic change at the greater tuberosity appears reactive. No aggressive bone destruction or acute fracture. IMPRESSION: 1. Rotator cuff tendinosis, the partial thickness tearing of supraspinatus and infraspinatus tendon. Mild partial subscapularis tendon tear. 2. Degeneration versus degenerative tearing of superior and inferior labrum. Electronically signed by: Dorian Anderson MD (06/21/2019 10:43 AM) [id number]
== END | disposition home or self-care (01) ==
LOC: MRI 09:12
PROVIDERS: ATTEND Orthopaedic Surgery
DX: S46.011A Strain of muscle(s) and tendon(s) of the rotator cuff of right shoulder, initial encounter (principal); M19.011 Primary osteoarthritis, right shoulder; M25.711 Osteophyte, right shoulder; M25.411 Effusion, right shoulder; W19.XXXA Unspecified fall, initial encounter; Y93.89 Activity, other specified; Y92.89 Other specified places as the place of occurrence of the external cause; Y99.8 Other external cause status
CPT/HCPCS: 73221